=== PATIENT | female | born 1950 | race Caucasian/White ===

== ENCOUNTER 2024-08-09 22:56 | Inpatient (IN) | payer MEDICARE, SELFPAY ==
--- NOTE | ~2024-08-09 | MR_ITS ---
EXAMINATION: MR BRAIN WITHOUT CONTRAST CLINICAL INFORMATION: Cognitive impairment. COMPARISON: None. TECHNIQUE: Multiplanar, multisequence MR imaging was performed through the brain without the use of intravenous gadolinium. Additional high-resolution anatomic imaging was performed through the brain and images were submitted for post processing including auto-segmentation and volumetric analysis. FINDINGS: No diffusion abnormalities are identified to suggest an acute infarct. No mass effect or midline shift is seen. Mild chronic small vessel ischemic changes present in the cerebral white matter. Moderate chronic ischemic microangiopathy evident within the sarah. Generalized brain parenchymal volume loss evident with commensurate ex vacuo dilatation of the ventricles. Degree of volume loss in the mesial temporal lobes is more significant. No evidence of hydrocephalus. No extra-axial fluid collections are seen. The cerebellum is normal. The heme sensitive acquisition is normal. The craniovertebral junction and marrow signal are normal. The major intracranial flow voids at the level of the iliamna of Ruff are preserved. The dural venous sinus flow voids are maintained. The mastoid air cells are well aerated. Very mild mucosal thickening in the paranasal sinuses. Very small proteinaceous Tornwaldt cyst in the midline nasopharyngeal roof. Baseline NeuroQuant volumetric assessment of the hippocampi was subsequently performed. Quantitative hippocampal volumes are estimated at an age-adjusted normative percentile of 1 %. Lateral ventricular size is estimated at a normative percentile rank of 96 %, and the inferior lateral ventricles are estimated at 99 %. Hippocampal occupancy score is 1%. MR/MR brain wo con w neuroquant IMPRESSION: Mild to moderate chronic white matter microangiopathy, more so in the sarah. Generalized brain parenchymal volume loss which is more significant in the mesial temporal lobes. No acute process. Baseline volumetric measurements support a diagnosis of primary Alzheimer's dementia. Electronically signed by: Yohannes Jean-Baptiste MD 08/12/2024 09:07 AM EDT
[2024-08-10] MEDS: hydrOXYzine HCL 25 MG TABLET PO (01:53)
[2024-08-10] MEDS: traZODone HCL 50 MG TABLET PO ×2 (01:53→20:01)
[2024-08-10 02:35] VITALS: BP 169/71; PULSE 82; RESP 18; TEMP 36.2; O2SAT 97
[2024-08-10 02:36] VITALS: BMI 21.5
--- NOTE | 2024-08-10 02:37 | PC.ADMIT ---
Admitted these 73 years old female per stretcher accompanied by the ambulance staff. Pt was admitted to [facility] FROM 07/31 TO 08/09/24 She has a PMHx of hypothyroidism,cirrhosis and alcohol abuse presents on sec. 12-B after police were called for pt. shouting in the streets and exhibiting unsafe and manic behavior. Pt. arrived in the unit at 23:55h. Upon arrival to the unit pt. is oriented to staff, room mate, unit and room. Pt is alert and oriented to person, place and time and forgets the date. Pt is sometimes confused and forgetful and lacks insight into situation. Skin assessment done w/ multiple scattered old bruises on bilateral upper extremities. She has an old scar area on the mid abdomen. All visible skin are intact, no open areas. Pt wears eyeglasses for reading, has her own teeth, no dentures, abdomen soft, non tender w/ positive bowel sounds in 4 quadrants and no edema noted. Pt. is independent in ADL'S , Ambulation and continent of B&B. Pt. denies SI/HI/depression/anxiety/pain and feels safe in the unit. Pt also denies alcohol and drug abuse and tobacco use, said she stopped long time ago about 15 years. Sia Briggs notified of admission and put the admission orders.Pt. also has HTN, Hypokalemia and Altered Mental Status. During admission process pt signed all the legal papers, pleasant but hyper verbal and very impatient. Pt complained that she is hungry and given 1 chicken sandwich and 1 cup of apple juice. Pt given Atarax 25 mg for anxiety and Trazodone foe sleep w/ good effect. We'll continue to monitor patient.
[2024-08-10] MEDS: Levothyroxine Sodium 25 MCG TABLET PO (05:46)
[2024-08-10 08:00] VITALS: BP 157/74; PULSE 91; RESP 18; TEMP 36.8; O2SAT 99
[2024-08-10] MEDS: Multivitamin TABLET 1 TAB PO (09:41)
[2024-08-10] MEDS: QUEtiapine Fumarate 25 MG TABLET PO (09:41)
[2024-08-10] MEDS: Potassium Chloride ER 20 MEQ TAB.ER.PRT PO (09:41)
[2024-08-10] MEDS: Losartan Potassium 25 MG TABLET PO ×2 (09:41→20:01)
[2024-08-10] MEDS: Thiamine HCL 100 MG TABLET PO (09:41)
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
[2024-08-10] MEDS: dilTIAZem HCL CD 180 MG CAP.ER.24H PO (10:27)
--- NOTE | 2024-08-10 15:39 | P.CONHOSP_ITS ---
History of Present Illness Data of Consult Service Date: 08/10/24 Primary Care Provider: Unknown Physician HPI Reason for consult: Admission H&P Pt is a 73-year-old female with a PMH significant for?HTN, hypothyroidism, alcohol use disorder, alcohol cirrhosis, and mood disorder who [facility] acute sissy and dysregulated behavior. Pt was apparently found by police shouting in the streets and exhibiting unsafe and manic behavior. Was brought in on a section 12. Medical consult for admission H&P. Pt continues to exhibit acute sissy at time of interview and exam. Pt reports feels great with no acute medical complaints, though she repeatedly asks for her phone and card containing all her medications, neither of which she can currently find. Denies SOB or difficulty breathing. No chest pain or pressure. Denies fever, chills, N/V/D, or abdominal pain. Review of records indicate initially presented to ED with hypokalemia. Current CMP largely unremarkable with potassium WNL. Review of Systems 2 Review of Systems: Pt denies any acute medical complaints [facility] Medical History (Updated 08/11/24 @ 03:00 by DOMINIQUE Denney) Alcoholic cirrhosis Alcohol use disorder Hypothyroidism HTN (hypertension) Social History Household Members: None Housing: Condominium Do you presently have visiting nurse or other home services: No Patient Tobacco Use Status: Former Tobacco user Tobacco use type: Cigarette Cigarettes Per Day: 3 Smoked in Last 30 Days: No e-Cigarette/Vaping Use: Never Used Patient Interested in Nicotine Replacement: No Patient Given Instructions on How to Stop Smoking: No Use of substances other than those prescribed or required for medical reasons: No Currently Displaying Signs/Symptoms of Drug Intoxication Withdrawal: No Any prior treatment program specific to substance use: No Have you been hit, kicked, punched, or otherwise hurt by someone within the past year? If so, by whom?: No Do you feel safe in your current relationship?: No Current Relationship Is there a partner from a previous relationship who is making you feel unsafe now?: No Are you made to feel afraid or neglected: No Denominational Healthcare Practices: I am a rastafarian . Advance Directives: No Advance Directives Information Provided: No Do you have thoughts of harming others: None Do you have a plan to hurt others: No Plan Recently lost weight without trying: No How much weight loss: Not applicable Eating poorly because of decreased appetite: No Nutrition screen score: 0 Nutrition Risks: No Nutritional Risk Patient : No : No Poor oral hygiene: No service: No Sexual orientation: Straight/Heterosexual Meds Allergies Allergy/AdvReac Type Severity Reaction Status Date / Time No Known Allergies Allergy Verified 08/09/24 23:21 Active Medications: Current Medications Acetaminophen (Acetaminophen 325 Mg Tablet) 650 mg PO Q6H PRN PRN Reason: Headache/Pain Mild Scale (1-3) Al Hydroxide/Mg Hydroxide (Magnesium Hydrox/Alum Hydrox 30 Ml Oral.Susp) 30 ml PO Q6H PRN PRN Reason: Heartburn/Nausea Diltiazem HCl (Diltiazem Hcl Cd 180 Mg Cap.Er.24h) 180 mg PO DAILY [facility]; Protocol Last Admin: 08/10/24 10:27 Dose: 180 mg Donepezil HCl (Donepezil Hcl 5 Mg Tablet) 5 mg PO BEDTIME [facility] Hydroxyzine HCl (Hydroxyzine Hcl 25 Mg Tablet) 25 mg PO Q6H PRN PRN Reason: Anxiety Last Admin: 08/10/24 01:53 Dose: 25 mg Levothyroxine Sodium (Levothyroxine Sodium 25 Mcg Tablet) 25 mcg PO DAILY@0630 [facility] Last Admin: 08/10/24 05:46 Dose: 25 mcg Losartan Potassium (Losartan Potassium 25 Mg Tablet) 25 mg PO BID [facility]; Protocol Last Admin: 08/10/24 09:41 Dose: 25 mg Magnesium Hydroxide (Milk Of Magnesia 30 Ml Oral.Susp) 30 ml PO DAILY PRN PRN Reason: Constipation Multivitamins/Vitamin C (Multivitamin Tablet) 1 tab PO DAILY [facility] Last Admin: 08/10/24 09:41 Dose: 1 tab Nicotine Polacrilex (Nicotine Polacrilex 2 Mg Gum) 4 mg BUCCAL Q2H PRN PRN Reason: Nicotine Cravings Potassium Chloride (Potassium Chloride Er 20 Meq Tab.Er.Prt) 20 meq PO DAILY [facility] Last Admin: 08/10/24 09:41 Dose: 20 meq Quetiapine Fumarate (Quetiapine Fumarate 25 Mg Tablet) 25 mg PO DAILY [facility] Last Admin: 08/10/24 09:41 Dose: 25 mg Quetiapine Fumarate (Quetiapine Fumarate 100 Mg Tablet) 100 mg PO BEDTIME [facility] Risperidone (Risperidone 0.5 Mg Tablet) 0.5 mg PO BID [facility] Thiamine HCl (Thiamine Hcl 100 Mg Tablet) 100 mg PO DAILY [facility] Last Admin: 08/10/24 09:41 Dose: 100 mg Trazodone HCl (Trazodone Hcl 50 Mg Tablet) 50 mg PO BEDTIME MRX1 PRN PRN Reason: Insomnia Last Admin: 08/10/24 01:53 Dose: 50 mg Home Medications ?Medication ?Instructions ?Recorded ?Confirmed ?Last Taken ?Type levothyroxine 25 mcg tablet 25 mcg PO DAILY 08/09/24 08/09/24 Unknown History diltiazem HCl 180 mg 180 mg PO DAILY 08/10/24 08/10/24 Unknown History capsule,extended release 24 hr losartan 25 mg tablet (Cozaar) 25 mg PO BID 08/10/24 08/10/24 Unknown History multivitamin 1 tab PO DAILY 08/10/24 08/10/24 Unknown History potassium chloride 20 mEq 20 meq PO DAILY 08/10/24 08/10/24 Unknown History tablet,extended release(part/cryst) quetiapine 100 mg tablet 100 mg PO BEDTIME 08/10/24 08/10/24 Unknown History quetiapine 25 mg tablet 25 mg PO DAILY 08/10/24 08/10/24 Unknown History thiamine HCl (vitamin B1) 100 mg 100 mg PO DAILY 08/10/24 08/10/24 Unknown History tablet Physical Exam 2 Vital Signs and Narrative: Vital Signs: Last Vital Signs Temp 98.3 F 08/10/24 08:00 Pulse 91 08/10/24 08:00 Resp 18 08/10/24 08:00 BP 157/74 H 08/10/24 08:00 Pulse Ox 99 08/10/24 08:00 O2 Del Method Room Air 08/10/24 08:00 BMI result Body Mass Index 21.5 General: AOx2, no acute distress Resp: CTA bilaterally CVS: S1, S2, RRR GI: +BS, NT, no distention Skin: Warm, dry Neuro: Cranial nerves II-XII grossly intact bilaterally. Motor grossly intact bilaterally Extremities: No edema Psych: Appear actively manic, with pressured speech Results Labs 08/10/24 16:23 Assessment and Plan (1) Medical clearance for psychiatric admission: Status: Acute Plan Pt is a 73-year-old female with a PMH significant for?HTN, hypothyroidism, alcohol use disorder, alcohol cirrhosis, and mood disorder who is admitted [facility] unit for acute sissy and dysregulated behavior. Pt was apparently found by police shouting in the streets and exhibiting unsafe and manic behavior. Was brought in on a section 12. Medical consult for admission H&P. Mood disorder Plan as per psychiatry HTN BP slighty elevated Continue diltiazem, losartan Monitor BP Hypothyroidism Continue levothyroxine Alcohol use disorder Continue multivitamin, thaimine Thank you for allowing us to participate in the care of this patient. Signing off at this time. Please re-consult if any acute complaints or issues arise.
[2024-08-10 16:49] LABS: Alanine Aminotransferase 20 U/L (0-31); Albumin Level 4.3 g/dL (3.5-5.0); Alkaline Phosphatase 114 U/L (39-117); Anion Gap 11 (12-20); Aspartate Amino Transferase 29 U/L (5-31); Bilirubin Total 0.6 mg/dL (0.0-1.0); Blood Urea Nitrogen 9 mg/dL (9-16); Calcium 9.8 mg/dL (8.4-10.2); Carbon Dioxide 31 mmol/L (22-29); Chloride 103 mmol/L (96-108); Creatinine Clr Calc Pharmacy 47.4; Estimated Glomerular Filt Rate > 60; Glucose Random 183 mg/dL (60-115); Potassium 4.6 mmol/L (3.3-5.1); Sodium 140 mmol/L (135-145); Total Protein 7.8 g/dL (6.5-8.0)
[2024-08-10] MEDS: risperiDONE 0.5 MG TABLET PO ×2 (17:29→20:01)
[2024-08-10 20:00] VITALS: BP 155/70; PULSE 87; RESP 18; TEMP 36.6; O2SAT 99
[2024-08-10] MEDS: Donepezil HCl 5 MG TABLET PO (20:01)
[2024-08-10] MEDS: QUEtiapine Fumarate 100 MG TABLET PO (20:01)
[2024-08-11] MEDS: Levothyroxine Sodium 25 MCG TABLET PO (06:05)
[2024-08-11 08:00] VITALS: BP 145/69; PULSE 91; RESP 18; TEMP 36.4; O2SAT 100
[2024-08-11 08:11] LABS: Estimated Average Glucose 146 mg/dL; Hemoglobin A1C 169.2686 umol/L; Hemoglobin A1c % 6.7 % (<6.0); Total Hemoglobin (HGBA1C) 3407.4814 umol/L
[2024-08-11 08:26] LABS: Cholesterol 206 mg/dL (<200); HDL Cholesterol 77 mg/dL (>40); LDL Cholesterol Calculated 111 mg/dL (<100); Magnesium 2.2 mg/dL (1.6-2.6); Triglycerides 94 mg/dL (<150)
[2024-08-11 08:40] LABS: Free T4 (Free Thyroxine) 1.07 ng/dL (0.71-1.85); Thyroid Stimulating Hormone 1.99 uIU/mL (0.32-4.0)
[2024-08-11 08:53] VITALS: BMI 22.0
[2024-08-11 08:55] LABS: Folate 11.8 ng/mL (> or = 4.0); Vitamin B12 426 pg/mL (200-900)
[2024-08-11] MEDS: dilTIAZem HCL CD 180 MG CAP.ER.24H PO (09:45)
[2024-08-11] MEDS: Multivitamin TABLET 1 TAB PO (09:46)
[2024-08-11] MEDS: Thiamine HCL 100 MG TABLET PO (09:46)
[2024-08-11] MEDS: Potassium Chloride ER 20 MEQ TAB.ER.PRT PO (09:46)
[2024-08-11] MEDS: Losartan Potassium 25 MG TABLET PO ×2 (09:46→20:20)
[2024-08-11] MEDS: risperiDONE 0.5 MG TABLET PO ×2 (09:46→20:20)
--- NOTE | 2024-08-11 12:25 | HO.PSYCHPN ---
Subjective Subjective Date of Service: 08/11/24 Reason For Visit: Depression, unspecified Subjective Notes: Conditional Voluntary Interim History: Pt slept most of the night. She continues to present with confusion as to where she is. She reports I like it here, so much better with less medications does have some idea it may be the hospital but other thinks she came for physical exam. She denies SI/HI. She can be intrusive with peers. no behavioral concerns. Review of Systems Review of Systems Pt denies any acute medical complaints Mental Status Exam Mental Status Exam Narrative: Appearance: wearing casual clothing, good hygiene, in NAD Behavior: cooperative Psychomotor: no agitation or retardation noted Speech: clear, hyperverbal at times, not pressured, spontaneous TP: tangential, at times derailed. confabulation TC: liking it here, very relaxing Mood: good Affect: congruent, smiling SI: denies HI: denies VH/AH: none Delusions: there is some paranoid ideas Insight/judgment: impaired x 2. Memory/cog: alert,not oriented to place, month, day, date, severe anterograde amnesia. No signsnificant language impairment noted but pending more formal assessment. Diagnostics Vital Signs (24Hr): Vital Signs - 24 hr 08/10/24 20:00 08/11/24 08:00 Temperature 97.8 F 97.5 F Pulse Rate 87 91 Respiratory Rate 18 18 Blood Pressure 155/70 H 145/69 H Pulse Oximetry 99 100 Oxygen Delivery Method Room Air Room Air BMI result Body Mass Index 22.0 Labs 08/10/24 16:23 Labs: Laboratory Results - last 48 hr 08/10/24 08/11/24 16:23 07:56 Sodium 140 Potassium 4.6 Chloride 103 Carbon Dioxide 31 H Anion Gap 11 L BUN 9 Creatinine 0.86 Estim Creat Clear Calc 47.4 Estimated GFR > 60 Random Glucose 183 H Estimat Average Glucose 146 Hemoglobin A1c % 6.7 H Calcium 9.8 Magnesium 2.2 Total Bilirubin 0.6 AST 29 ALT 20 Alkaline Phosphatase 114 Total Protein 7.8 Albumin 4.3 Triglycerides 94 Cholesterol 206 H LDL Cholesterol, Calc 111 H HDL Cholesterol 77 Vitamin B12 426 Folate 11.8 TSH 1.99 Free T4 1.07 Medications Medications Current Medications Acetaminophen (Acetaminophen 325 Mg Tablet) 650 mg PO Q6H PRN PRN Reason: Headache/Pain Mild Scale (1-3) Al Hydroxide/Mg Hydroxide (Magnesium Hydrox/Alum Hydrox 30 Ml Oral.Susp) 30 ml PO Q6H PRN PRN Reason: Heartburn/Nausea Diltiazem HCl (Diltiazem Hcl Cd 180 Mg Cap.Er.24h) 180 mg PO DAILY [facility]; Protocol Last Admin: 08/11/24 09:45 Dose: 180 mg Donepezil HCl (Donepezil Hcl 5 Mg Tablet) 5 mg PO BEDTIME [facility] Last Admin: 08/10/24 20:01 Dose: 5 mg Hydroxyzine HCl (Hydroxyzine Hcl 25 Mg Tablet) 25 mg PO Q6H PRN PRN Reason: Anxiety Last Admin: 08/10/24 01:53 Dose: 25 mg Levothyroxine Sodium (Levothyroxine Sodium 25 Mcg Tablet) 25 mcg PO DAILY@0630 [facility] Last Admin: 08/11/24 06:05 Dose: 25 mcg Losartan Potassium (Losartan Potassium 25 Mg Tablet) 25 mg PO BID [facility]; Protocol Last Admin: 08/11/24 09:46 Dose: 25 mg Magnesium Hydroxide (Milk Of Magnesia 30 Ml Oral.Susp) 30 ml PO DAILY PRN PRN Reason: Constipation Multivitamins/Vitamin C (Multivitamin Tablet) 1 tab PO DAILY [facility] Last Admin: 08/11/24 09:46 Dose: 1 tab Nicotine Polacrilex (Nicotine Polacrilex 2 Mg Gum) 4 mg BUCCAL Q2H PRN PRN Reason: Nicotine Cravings Potassium Chloride (Potassium Chloride Er 20 Meq Tab.Er.Prt) 20 meq PO DAILY [facility] Last Admin: 08/11/24 09:46 Dose: 20 meq Quetiapine Fumarate (Quetiapine Fumarate 100 Mg Tablet) 100 mg PO BEDTIME [facility] Last Admin: 08/10/24 20:01 Dose: 100 mg Risperidone (Risperidone 0.5 Mg Tablet) 0.5 mg PO BID [facility] Last Admin: 08/11/24 09:46 Dose: 0.5 mg Thiamine HCl (Thiamine Hcl 100 Mg Tablet) 100 mg PO DAILY [facility] Last Admin: 08/11/24 09:46 Dose: 100 mg Trazodone HCl (Trazodone Hcl 50 Mg Tablet) 50 mg PO BEDTIME MRX1 PRN PRN Reason: Insomnia Last Admin: 08/10/24 20:01 Dose: 50 mg Allergies Allergies Allergy/AdvReac Type Severity Reaction Status Date / Time No Known Allergies Allergy Verified 08/09/24 23:21 Assessment & Plan Assessment & Plan (1) Dementia associated with alcoholism with behavioral disturbance: Status: Acute Code(s): F10.27 - Alcohol dependence with alcohol-induced persisting dementia Plan Mrs. Walsh is a 73 year-old woman who was brought on a sect 12a to [facility] due to pt shouting on the streets and unsafe behaviors (no description of these behaviors). Pt was medically admitted for HTN and hypokalemia. She has been noted not to be oriented to situation, place thinking she was in he hospital for physical exam. She does have some degree of paranoid ideas. She also noted to have severe anterograde amnesia with other cognitive functions like language more intact which most related pattern to alcohol related dementia, although mixed etiology can't be ruled out. PLAN 1. admit to S1, sect 12b, 5 minutes checks 2. invoked HCP- pt does not have capacity to make medical decisions 3. start risperidone for paranoia s/s to dementia, will start aricept as well. 4. order MRI 5. aftercare planning. Reason for continued inpatient stay Substantial Risk for: inability to function Time Spent With Patient Time: Total time managing care of this patient today ____ minutes.
[2024-08-11 19:59] VITALS: BP 133/70; PULSE 81; RESP 18; TEMP 36.6; O2SAT 99
[2024-08-11] MEDS: traZODone HCL 50 MG TABLET PO (20:20)
[2024-08-11] MEDS: QUEtiapine Fumarate 100 MG TABLET PO (20:20)
[2024-08-11] MEDS: Donepezil HCl 5 MG TABLET PO (20:20)
[2024-08-11] MEDS: hydrOXYzine HCL 25 MG TABLET PO (20:20)
[2024-08-12] MEDS: Levothyroxine Sodium 25 MCG TABLET PO (05:56)
[2024-08-12 08:41] VITALS: BP 125/60; PULSE 76; RESP 18; TEMP 36.1; O2SAT 100
[2024-08-12] MEDS: dilTIAZem HCL CD 180 MG CAP.ER.24H PO (08:41)
[2024-08-12] MEDS: risperiDONE 0.5 MG TABLET PO ×2 (08:41→20:16)
[2024-08-12] MEDS: Losartan Potassium 25 MG TABLET PO ×2 (08:41→20:16)
[2024-08-12] MEDS: Multivitamin TABLET 1 TAB PO (08:41)
[2024-08-12] MEDS: Potassium Chloride ER 20 MEQ TAB.ER.PRT PO (08:41)
[2024-08-12] MEDS: Thiamine HCL 100 MG TABLET PO (08:42)
--- NOTE | 2024-08-12 11:37 | P.PNPSI_ITS ---
Subjective Subjective Date of Service: 08/12/24 Reason For Visit: Depression, unspecified Interim History: Pt visable and engaged in milieu, having lunch with peers. Alert, attentive to environment and responsive with confusion. Medication Compliance: Yes Side effects from medications: No Attending Groups: Yes Review of Systems Acute medical concerns: No Medical Review of Systems: unchanged Review of Systems Review of Systems Yes all other systems are reviewed and are negative Mental Status Exam Mental Status Exam Patient Appearance: Appropriate Level of Consciousness: Alert Patient Behavior: Talkative and Good Eye Contact Mood Description: Flat Affect Description: Flat Patient Cognition Impaired: Yes Ability to Follow Directions: Fair Speech Pattern: Spontaneous Speech Memory Description: Remote Impaired Thought Content: positive for Circumstantial Judgement: Poor Diagnostics Vital Signs (24Hr): Vital Signs - 24 hr 08/11/24 19:59 08/12/24 08:41 08/12/24 08:41 Temperature 97.8 F Pulse Rate 81 76 Respiratory Rate 18 Blood Pressure 133/70 125/60 125/60 Pulse Oximetry 99 Oxygen Delivery Method Room Air 08/12/24 08:41 Temperature 96.9 F Pulse Rate 76 Respiratory Rate 18 Blood Pressure 125/60 Pulse Oximetry 100 Oxygen Delivery Method Room Air BMI result Body Mass Index 22.0 Labs 08/10/24 16:23 Labs: Laboratory Results - last 48 hr 08/10/24 08/11/24 16:23 07:56 Sodium 140 Potassium 4.6 Chloride 103 Carbon Dioxide 31 H Anion Gap 11 L BUN 9 Creatinine 0.86 Estim Creat Clear Calc 47.4 Estimated GFR > 60 Random Glucose 183 H Estimat Average Glucose 146 Hemoglobin A1c % 6.7 H Calcium 9.8 Magnesium 2.2 Total Bilirubin 0.6 AST 29 ALT 20 Alkaline Phosphatase 114 Total Protein 7.8 Albumin 4.3 Triglycerides 94 Cholesterol 206 H LDL Cholesterol, Calc 111 H HDL Cholesterol 77 Vitamin B12 426 Folate 11.8 TSH 1.99 Free T4 1.07 Imaging Radiology Impressions: ITS Impressions Brain MRI 08/10/24 18:37 IMPRESSION: Mild to moderate chronic white matter microangiopathy, more so in the sarah. Generalized brain parenchymal volume loss which is more significant in the mesial temporal lobes. No acute process. Baseline volumetric measurements support a diagnosis of primary Alzheimer's dementia. Electronically signed by: Yohannes Jean-Baptiste MD 08/12/2024 09:07 AM EDT RP Medications Medications Current Medications Acetaminophen (Acetaminophen 325 Mg Tablet) 650 mg PO Q6H PRN PRN Reason: Headache/Pain Mild Scale (1-3) Al Hydroxide/Mg Hydroxide (Magnesium Hydrox/Alum Hydrox 30 Ml Oral.Susp) 30 ml PO Q6H PRN PRN Reason: Heartburn/Nausea Diltiazem HCl (Diltiazem Hcl Cd 180 Mg Cap.Er.24h) 180 mg PO DAILY [facility]; Protocol Last Admin: 08/12/24 08:41 Dose: 180 mg Donepezil HCl (Donepezil Hcl 5 Mg Tablet) 5 mg PO BEDTIME [facility] Last Admin: 08/11/24 20:20 Dose: 5 mg Hydroxyzine HCl (Hydroxyzine Hcl 25 Mg Tablet) 25 mg PO Q6H PRN PRN Reason: Anxiety Last Admin: 08/11/24 20:20 Dose: 25 mg Levothyroxine Sodium (Levothyroxine Sodium 25 Mcg Tablet) 25 mcg PO DAILY@0630 [facility] Last Admin: 08/12/24 05:56 Dose: 25 mcg Losartan Potassium (Losartan Potassium 25 Mg Tablet) 25 mg PO BID [facility]; Protocol Last Admin: 08/12/24 08:41 Dose: 25 mg Magnesium Hydroxide (Milk Of Magnesia 30 Ml Oral.Susp) 30 ml PO DAILY PRN PRN Reason: Constipation Multivitamins/Vitamin C (Multivitamin Tablet) 1 tab PO DAILY [facility] Last Admin: 08/12/24 08:41 Dose: 1 tab Nicotine Polacrilex (Nicotine Polacrilex 2 Mg Gum) 4 mg BUCCAL Q2H PRN PRN Reason: Nicotine Cravings Potassium Chloride (Potassium Chloride Er 20 Meq Tab.Er.Prt) 20 meq PO DAILY [facility] Last Admin: 08/12/24 08:41 Dose: 20 meq Quetiapine Fumarate (Quetiapine Fumarate 100 Mg Tablet) 100 mg PO BEDTIME [facility] Last Admin: 08/11/24 20:20 Dose: 100 mg Risperidone (Risperidone 0.5 Mg Tablet) 0.5 mg PO BID [facility] Last Admin: 08/12/24 08:41 Dose: 0.5 mg Thiamine HCl (Thiamine Hcl 100 Mg Tablet) 100 mg PO DAILY [facility] Last Admin: 08/12/24 08:42 Dose: 100 mg Trazodone HCl (Trazodone Hcl 50 Mg Tablet) 50 mg PO BEDTIME MRX1 PRN PRN Reason: Insomnia Last Admin: 08/11/24 20:20 Dose: 50 mg Allergies Allergies Allergy/AdvReac Type Severity Reaction Status Date / Time No Known Allergies Allergy Verified 08/09/24 23:21 Assessment & Plan Assessment & Plan (1) Dementia associated with alcoholism with behavioral disturbance: Status: Acute Code(s): F10.27 - Alcohol dependence with alcohol-induced persisting dementia Plan Mrs. Walsh is a 73 year-old woman who was brought on a sect 12a to [facility] due to pt shouting on the streets and unsafe behaviors (no description of these behaviors). Pt was medically admitted for HTN and hypokalemia. She has been noted not to be oriented to situation, place thinking she was in he hospital for physical exam. She does have some degree of paranoid ideas. She also noted to have severe anterograde amnesia with other cognitive functions like language more intact which most related pattern to alcohol related dementia, although mixed etiology can't be ruled out. PLAN 1. admit to S1, sect 12b, 5 minutes checks 2. invoked HCP- pt does not have capacity to make medical decisions 3. start risperidone for paranoia s/s to dementia, will start aricept as well. 4. order MRI 5. aftercare planning. 08/12- Continue plan of care. Reason for continued inpatient stay Substantial Risk for: med/psych decompensation Time Spent With Patient Time: Total time managing care of this patient today ____ minutes.
[2024-08-12 20:00] VITALS: BP 125/62; PULSE 75; RESP 18; TEMP 36.4; O2SAT 96
[2024-08-12] MEDS: Donepezil HCl 5 MG TABLET PO (20:16)
[2024-08-12] MEDS: hydrOXYzine HCL 25 MG TABLET PO (20:16)
[2024-08-12] MEDS: traZODone HCL 50 MG TABLET PO (20:16)
[2024-08-12] MEDS: QUEtiapine Fumarate 100 MG TABLET PO (20:16)
[2024-08-13] MEDS: Levothyroxine Sodium 25 MCG TABLET PO (05:42)
[2024-08-13 08:34] VITALS: BP 169/78; PULSE 85; RESP 18; TEMP 36.8; O2SAT 99
[2024-08-13] MEDS: Multivitamin TABLET 1 TAB PO (08:35)
[2024-08-13] MEDS: Potassium Chloride ER 20 MEQ TAB.ER.PRT PO (08:36)
[2024-08-13] MEDS: Losartan Potassium 25 MG TABLET PO ×2 (08:36→20:30)
[2024-08-13] MEDS: risperiDONE 0.5 MG TABLET PO ×2 (08:36→20:30)
[2024-08-13] MEDS: dilTIAZem HCL CD 180 MG CAP.ER.24H PO (08:36)
[2024-08-13] MEDS: Thiamine HCL 100 MG TABLET PO (08:37)
--- NOTE | 2024-08-13 11:09 | P.PNPSI_ITS ---
Subjective Subjective Date of Service: 08/13/24 Reason For Visit: Depression, unspecified Subjective Notes: Conditional Voluntary Interim History: Patient was seen and discussed in rounds today. Records and plans were reviewed. She has been doing okay on the unit. Some intrusive behaviors. Continues to be confused. Eating and sleeping adequately. No changes were made today Review of Systems Review of Systems Yes all other systems are reviewed and are negative Mental Status Exam Mental Status Exam Patient Appearance: Appropriate Level of Consciousness: Alert Patient Behavior: Talkative and Good Eye Contact Mood Description: Flat Affect Description: Flat Patient Cognition Impaired: Yes Ability to Follow Directions: Fair Speech Pattern: Spontaneous Speech Memory Description: Remote Impaired Thought Content: positive for Circumstantial Judgement: Poor Diagnostics Vital Signs (24Hr): Vital Signs - 24 hr 08/12/24 20:00 08/13/24 08:34 Temperature 97.6 F 98.2 F Pulse Rate 75 85 Respiratory Rate 18 18 Blood Pressure 125/62 169/78 H Pulse Oximetry 96 99 Oxygen Delivery Method Room Air Room Air BMI result Body Mass Index 22.0 Labs 08/10/24 16:23 Imaging Radiology Impressions: ITS Impressions Brain MRI 08/10/24 18:37 IMPRESSION: Mild to moderate chronic white matter microangiopathy, more so in the sarah. Generalized brain parenchymal volume loss which is more significant in the mesial temporal lobes. No acute process. Baseline volumetric measurements support a diagnosis of primary Alzheimer's dementia. Electronically signed by: Yohannes Jean-Baptiste MD 08/12/2024 09:07 AM EDT RP Medications Medications Current Medications Acetaminophen (Acetaminophen 325 Mg Tablet) 650 mg PO Q6H PRN PRN Reason: Headache/Pain Mild Scale (1-3) Al Hydroxide/Mg Hydroxide (Magnesium Hydrox/Alum Hydrox 30 Ml Oral.Susp) 30 ml PO Q6H PRN PRN Reason: Heartburn/Nausea Diltiazem HCl (Diltiazem Hcl Cd 180 Mg Cap.Er.24h) 180 mg PO DAILY [facility]; Protocol Last Admin: 08/13/24 08:36 Dose: 180 mg Donepezil HCl (Donepezil Hcl 5 Mg Tablet) 5 mg PO BEDTIME [facility] Last Admin: 08/12/24 20:16 Dose: 5 mg Hydroxyzine HCl (Hydroxyzine Hcl 25 Mg Tablet) 25 mg PO Q6H PRN PRN Reason: Anxiety Last Admin: 08/12/24 20:16 Dose: 25 mg Levothyroxine Sodium (Levothyroxine Sodium 25 Mcg Tablet) 25 mcg PO DAILY@0630 [facility] Last Admin: 08/13/24 05:42 Dose: 25 mcg Losartan Potassium (Losartan Potassium 25 Mg Tablet) 25 mg PO BID [facility]; Protocol Last Admin: 08/13/24 08:36 Dose: 25 mg Magnesium Hydroxide (Milk Of Magnesia 30 Ml Oral.Susp) 30 ml PO DAILY PRN PRN Reason: Constipation Multivitamins/Vitamin C (Multivitamin Tablet) 1 tab PO DAILY [facility] Last Admin: 08/13/24 08:35 Dose: 1 tab Nicotine Polacrilex (Nicotine Polacrilex 2 Mg Gum) 4 mg BUCCAL Q2H PRN PRN Reason: Nicotine Cravings Potassium Chloride (Potassium Chloride Er 20 Meq Tab.Er.Prt) 20 meq PO DAILY [facility] Last Admin: 08/13/24 08:36 Dose: 20 meq Quetiapine Fumarate (Quetiapine Fumarate 100 Mg Tablet) 100 mg PO BEDTIME [facility] Last Admin: 08/12/24 20:16 Dose: 100 mg Risperidone (Risperidone 0.5 Mg Tablet) 0.5 mg PO BID [facility] Last Admin: 08/13/24 08:36 Dose: 0.5 mg Thiamine HCl (Thiamine Hcl 100 Mg Tablet) 100 mg PO DAILY [facility] Last Admin: 08/13/24 08:37 Dose: 100 mg Trazodone HCl (Trazodone Hcl 50 Mg Tablet) 50 mg PO BEDTIME MRX1 PRN PRN Reason: Insomnia Last Admin: 08/12/24 20:16 Dose: 50 mg Allergies Allergies Allergy/AdvReac Type Severity Reaction Status Date / Time No Known Allergies Allergy Verified 08/09/24 23:21 Assessment & Plan Assessment & Plan (1) Dementia associated with alcoholism with behavioral disturbance: Status: Acute Code(s): F10.27 - Alcohol dependence with alcohol-induced persisting dementia Plan Mrs. Walsh is a 73 year-old woman who was brought on a sect 12a to [facility] due to pt shouting on the streets and unsafe behaviors (no description of these behaviors). Pt was medically admitted for HTN and hypokalemia. She has been noted not to be oriented to situation, place thinking she was in he hospital for physical exam. She does have some degree of paranoid ideas. She also noted to have severe anterograde amnesia with other cognitive functions like language more intact which most related pattern to alcohol related dementia, although mixed etiology can't be ruled out. PLAN 1. admit to S1, sect 12b, 5 minutes checks 2. invoked HCP- pt does not have capacity to make medical decisions 3. start risperidone for paranoia s/s to dementia, will start aricept as well. 4. order MRI 5. aftercare planning. 08/12- Continue plan of care. 08/13: Continue current regimen and plans Reason for continued inpatient stay Substantial Risk for: inability to function and med/psych decompensation Time Spent With Patient Time: Total time managing care of this patient today ____ minutes.
[2024-08-13 20:00] VITALS: BP 135/69; PULSE 85; RESP 18; TEMP 36.4; O2SAT 97
[2024-08-13] MEDS: Donepezil HCl 5 MG TABLET PO (20:30)
[2024-08-13] MEDS: hydrOXYzine HCL 25 MG TABLET PO (20:30)
[2024-08-13] MEDS: QUEtiapine Fumarate 100 MG TABLET PO (20:30)
[2024-08-13] MEDS: traZODone HCL 50 MG TABLET PO (20:30)
[2024-08-14] MEDS: Levothyroxine Sodium 25 MCG TABLET PO (06:11)
[2024-08-14 07:43] VITALS: BP 152/77; PULSE 89; RESP 16; TEMP 36.1; O2SAT 99
--- NOTE | 2024-08-14 08:22 | HO.PSYCHPN ---
Subjective Subjective Date of Service: 08/14/24 Reason For Visit: Depression, unspecified Subjective Notes: Conditional Voluntary Interim History: Patient was seen and discussed in rounds today. Records and plans were reviewed. She stated that she is confused why she is on a psychiatric unit. She has been tearful, social. Mostly tangential. No behavioral issues some intrusive behaviors. Her observation is going to be changed from 5 minutes to 15 meds. Eating and sleeping well. No other changes were made today Review of Systems Review of Systems Yes all other systems are reviewed and are negative Mental Status Exam Mental Status Exam Patient Appearance: Appropriate Level of Consciousness: Alert Patient Behavior: Talkative and Good Eye Contact Mood Description: Flat Affect Description: Flat Patient Cognition Impaired: Yes Ability to Follow Directions: Fair Speech Pattern: Spontaneous Speech Memory Description: Remote Impaired Thought Content: positive for Circumstantial Judgement: Poor Diagnostics Vital Signs (24Hr): Vital Signs - 24 hr 08/13/24 08:34 08/13/24 20:00 08/14/24 07:43 Temperature 98.2 F 97.5 F 97.0 F Pulse Rate 85 85 89 Respiratory Rate 18 18 16 Blood Pressure 169/78 H 135/69 152/77 H Pulse Oximetry 99 97 99 Oxygen Delivery Method Room Air Room Air Room Air BMI result Body Mass Index 22.0 Labs 08/10/24 16:23 Imaging Radiology Impressions: ITS Impressions Brain MRI 08/10/24 18:37 IMPRESSION: Mild to moderate chronic white matter microangiopathy, more so in the sarah. Generalized brain parenchymal volume loss which is more significant in the mesial temporal lobes. No acute process. Baseline volumetric measurements support a diagnosis of primary Alzheimer's dementia. Electronically signed by: Yohannes Jean-Baptiste MD 08/12/2024 09:07 AM EDT RP Medications Medications Current Medications Acetaminophen (Acetaminophen 325 Mg Tablet) 650 mg PO Q6H PRN PRN Reason: Headache/Pain Mild Scale (1-3) Al Hydroxide/Mg Hydroxide (Magnesium Hydrox/Alum Hydrox 30 Ml Oral.Susp) 30 ml PO Q6H PRN PRN Reason: Heartburn/Nausea Diltiazem HCl (Diltiazem Hcl Cd 180 Mg Cap.Er.24h) 180 mg PO DAILY [facility]; Protocol Last Admin: 08/13/24 08:36 Dose: 180 mg Donepezil HCl (Donepezil Hcl 5 Mg Tablet) 5 mg PO BEDTIME [facility] Last Admin: 08/13/24 20:30 Dose: 5 mg Hydroxyzine HCl (Hydroxyzine Hcl 25 Mg Tablet) 25 mg PO Q6H PRN PRN Reason: Anxiety Last Admin: 08/13/24 20:30 Dose: 25 mg Levothyroxine Sodium (Levothyroxine Sodium 25 Mcg Tablet) 25 mcg PO DAILY@0630 [facility] Last Admin: 08/14/24 06:11 Dose: 25 mcg Losartan Potassium (Losartan Potassium 25 Mg Tablet) 25 mg PO BID [facility]; Protocol Last Admin: 08/13/24 20:30 Dose: 25 mg Magnesium Hydroxide (Milk Of Magnesia 30 Ml Oral.Susp) 30 ml PO DAILY PRN PRN Reason: Constipation Multivitamins/Vitamin C (Multivitamin Tablet) 1 tab PO DAILY [facility] Last Admin: 08/13/24 08:35 Dose: 1 tab Nicotine Polacrilex (Nicotine Polacrilex 2 Mg Gum) 4 mg BUCCAL Q2H PRN PRN Reason: Nicotine Cravings Potassium Chloride (Potassium Chloride Er 20 Meq Tab.Er.Prt) 20 meq PO DAILY [facility] Last Admin: 08/13/24 08:36 Dose: 20 meq Quetiapine Fumarate (Quetiapine Fumarate 100 Mg Tablet) 100 mg PO BEDTIME [facility] Last Admin: 08/13/24 20:30 Dose: 100 mg Risperidone (Risperidone 0.5 Mg Tablet) 0.5 mg PO BID [facility] Last Admin: 08/13/24 20:30 Dose: 0.5 mg Thiamine HCl (Thiamine Hcl 100 Mg Tablet) 100 mg PO DAILY [facility] Last Admin: 08/13/24 08:37 Dose: 100 mg Trazodone HCl (Trazodone Hcl 50 Mg Tablet) 50 mg PO BEDTIME MRX1 PRN PRN Reason: Insomnia Last Admin: 08/13/24 20:30 Dose: 50 mg Allergies Allergies Allergy/AdvReac Type Severity Reaction Status Date / Time No Known Allergies Allergy Verified 08/09/24 23:21 Assessment & Plan Assessment & Plan (1) Dementia associated with alcoholism with behavioral disturbance: Status: Acute Code(s): F10.27 - Alcohol dependence with alcohol-induced persisting dementia Plan Mrs. Walsh is a 73 year-old woman who was brought on a sect 12a to [facility] due to pt shouting on the streets and unsafe behaviors (no description of these behaviors). Pt was medically admitted for HTN and hypokalemia. She has been noted not to be oriented to situation, place thinking she was in he hospital for physical exam. She does have some degree of paranoid ideas. She also noted to have severe anterograde amnesia with other cognitive functions like language more intact which most related pattern to alcohol related dementia, although mixed etiology can't be ruled out. PLAN 1. admit to S1, sect 12b, 5 minutes checks 2. invoked HCP- pt does not have capacity to make medical decisions 3. start risperidone for paranoia s/s to dementia, will start aricept as well. 4. order MRI 5. aftercare planning. 08/12- Continue plan of care. 08/13: Continue current regimen and plans 08/14: Continue current regimen and plans Reason for continued inpatient stay Substantial Risk for: med/psych decompensation Time Spent With Patient Time: Total time managing care of this patient today ____ minutes.
[2024-08-14] MEDS: dilTIAZem HCL CD 180 MG CAP.ER.24H PO (08:35)
[2024-08-14] MEDS: Thiamine HCL 100 MG TABLET PO (08:35)
[2024-08-14] MEDS: Potassium Chloride ER 20 MEQ TAB.ER.PRT PO (08:35)
[2024-08-14] MEDS: risperiDONE 0.5 MG TABLET PO ×2 (08:35→20:01)
[2024-08-14] MEDS: Multivitamin TABLET 1 TAB PO (08:35)
[2024-08-14] MEDS: Losartan Potassium 25 MG TABLET PO ×2 (08:35→20:01)
[2024-08-14 20:00] VITALS: BP 148/64; PULSE 85; RESP 16; TEMP 36.8; O2SAT 95
[2024-08-14 20:01] VITALS: BP 148/64
[2024-08-14] MEDS: QUEtiapine Fumarate 100 MG TABLET PO (20:01)
[2024-08-14] MEDS: Donepezil HCl 5 MG TABLET PO (20:02)
[2024-08-15] MEDS: Levothyroxine Sodium 25 MCG TABLET PO (05:39)
[2024-08-15 08:00] VITALS: BP 138/66; PULSE 83; RESP 18; TEMP 36.6; O2SAT 99
[2024-08-15] MEDS: Losartan Potassium 25 MG TABLET PO ×2 (08:17→19:54)
[2024-08-15] MEDS: dilTIAZem HCL CD 180 MG CAP.ER.24H PO (08:17)
[2024-08-15] MEDS: Thiamine HCL 100 MG TABLET PO (08:17)
[2024-08-15] MEDS: Multivitamin TABLET 1 TAB PO (08:18)
[2024-08-15] MEDS: risperiDONE 0.5 MG TABLET PO ×2 (08:18→19:54)
[2024-08-15] MEDS: Potassium Chloride ER 20 MEQ TAB.ER.PRT PO (08:18)
--- NOTE | 2024-08-15 08:52 | P.PNPSI_ITS ---
Subjective Subjective Date of Service: 08/15/24 Reason For Visit: Depression, unspecified Subjective Notes: Conditional Voluntary Healthcare Proxy: Yes Interim History: Pt sleeping. She is also social and visible on the unit. She still thinks she is looking for a job and this is part of the process. discussed with pt dx of dementia alzheimer's type, which she does not believe she has nor extent of impairments. not oriented to month, year nor situation. HCP invoked. CV signed by HCP verbally with 2 witnesses. Review of Systems Review of Systems Pt denies any acute medical complaints Yes all other systems are reviewed and are negative Mental Status Exam Mental Status Exam Narrative: Appearance: wearing casual clothing, good hygiene, in NAD Behavior: cooperative Psychomotor: no agitation or retardation noted Speech: clear, hyperverbal at times, not pressured, spontaneous TP: tangential, at times derailed. confabulation TC: liking it here, very relaxing Mood: good Affect: congruent, smiling SI: denies HI: denies VH/AH: none Delusions: there is some paranoid ideas Insight/judgment: impaired x 2. Memory/cog: alert,not oriented to place, month, day, date, severe anterograde amnesia. No signsnificant language impairment noted but pending more formal assessment. Diagnostics Vital Signs (24Hr): Vital Signs - 24 hr 08/14/24 20:00 08/14/24 20:01 Temperature 98.2 F Pulse Rate 85 Respiratory Rate 16 Blood Pressure 148/64 H 148/64 H Pulse Oximetry 95 Oxygen Delivery Method Room Air BMI result Body Mass Index 22.0 Labs 08/10/24 16:23 Imaging Radiology Impressions: ITS Impressions Brain MRI 08/10/24 18:37 IMPRESSION: Mild to moderate chronic white matter microangiopathy, more so in the sarah. Generalized brain parenchymal volume loss which is more significant in the mesial temporal lobes. No acute process. Baseline volumetric measurements support a diagnosis of primary Alzheimer's dementia. Electronically signed by: Yohannes Jean-Baptiste MD 08/12/2024 09:07 AM EDT Medications Medications Current Medications Acetaminophen (Acetaminophen 325 Mg Tablet) 650 mg PO Q6H PRN PRN Reason: Headache/Pain Mild Scale (1-3) Al Hydroxide/Mg Hydroxide (Magnesium Hydrox/Alum Hydrox 30 Ml Oral.Susp) 30 ml PO Q6H PRN PRN Reason: Heartburn/Nausea Diltiazem HCl (Diltiazem Hcl Cd 180 Mg Cap.Er.24h) 180 mg PO DAILY [facility]; Protocol Last Admin: 08/15/24 08:17 Dose: 180 mg Donepezil HCl (Donepezil Hcl 5 Mg Tablet) 5 mg PO BEDTIME [facility] Last Admin: 08/14/24 20:02 Dose: 5 mg Hydroxyzine HCl (Hydroxyzine Hcl 25 Mg Tablet) 25 mg PO Q6H PRN PRN Reason: Anxiety Last Admin: 08/13/24 20:30 Dose: 25 mg Levothyroxine Sodium (Levothyroxine Sodium 25 Mcg Tablet) 25 mcg PO DAILY@0630 [facility] Last Admin: 08/15/24 05:39 Dose: 25 mcg Losartan Potassium (Losartan Potassium 25 Mg Tablet) 25 mg PO BID [facility]; Protocol Last Admin: 08/15/24 08:17 Dose: 25 mg Magnesium Hydroxide (Milk Of Magnesia 30 Ml Oral.Susp) 30 ml PO DAILY PRN PRN Reason: Constipation Multivitamins/Vitamin C (Multivitamin Tablet) 1 tab PO DAILY [facility] Last Admin: 08/15/24 08:18 Dose: 1 tab Nicotine Polacrilex (Nicotine Polacrilex 2 Mg Gum) 4 mg BUCCAL Q2H PRN PRN Reason: Nicotine Cravings Potassium Chloride (Potassium Chloride Er 20 Meq Tab.Er.Prt) 20 meq PO DAILY [facility] Last Admin: 08/15/24 08:18 Dose: 20 meq Quetiapine Fumarate (Quetiapine Fumarate 100 Mg Tablet) 100 mg PO BEDTIME [facility] Last Admin: 08/14/24 20:01 Dose: 100 mg Risperidone (Risperidone 0.5 Mg Tablet) 0.5 mg PO BID [facility] Last Admin: 08/15/24 08:18 Dose: 0.5 mg Thiamine HCl (Thiamine Hcl 100 Mg Tablet) 100 mg PO DAILY [facility] Last Admin: 08/15/24 08:17 Dose: 100 mg Trazodone HCl (Trazodone Hcl 50 Mg Tablet) 50 mg PO BEDTIME MRX1 PRN PRN Reason: Insomnia Last Admin: 08/13/24 20:30 Dose: 50 mg Allergies Allergies Allergy/AdvReac Type Severity Reaction Status Date / Time No Known Allergies Allergy Verified 08/09/24 23:21 Assessment & Plan Assessment & Plan (1) Dementia associated with alcoholism with behavioral disturbance: Status: Acute Code(s): F10.27 - Alcohol dependence with alcohol-induced persisting dementia Plan Mrs. Walsh is a 73 year-old woman who was brought on a sect 12a to [facility] due to pt shouting on the streets and unsafe behaviors (no description of these behaviors). Pt was medically admitted for HTN and hypokalemia. She has been noted not to be oriented to situation, place thinking she was in he hospital for physical exam. She does have some degree of paranoid ideas. She also noted to have severe anterograde amnesia with other cognitive functions like language more intact which most related pattern to alcohol related dementia, although mixed etiology can't be ruled out. PLAN 1. admit to S1, sect 12b, 5 minutes checks 2. invoked HCP- pt does not have capacity to make medical decisions 3. start risperidone for paranoia s/s to dementia, will start aricept as well. 4. order MRI 5. aftercare planning. 08/12- Continue plan of care. 08/13: Continue current regimen and plans 08/14: Continue current regimen and plans 08/15 continue tx. Reason for continued inpatient stay Substantial Risk for: inability to function Time Spent With Patient Time: Total time managing care of this patient today ____ minutes.
[2024-08-15 19:48] VITALS: BP 140/64; PULSE 85; RESP 16; TEMP 36.2; O2SAT 98
[2024-08-15 19:54] VITALS: BP 140/64
[2024-08-15] MEDS: QUEtiapine Fumarate 100 MG TABLET PO (19:54)
[2024-08-15] MEDS: Donepezil HCl 5 MG TABLET PO (19:54)
[2024-08-16] MEDS: Levothyroxine Sodium 25 MCG TABLET PO (05:32)
[2024-08-16 09:25] VITALS: BP 167/78; PULSE 88; RESP 15; TEMP 36.7; O2SAT 98
[2024-08-16] MEDS: risperiDONE 0.5 MG TABLET PO ×2 (09:27→20:11)
[2024-08-16] MEDS: Thiamine HCL 100 MG TABLET PO (09:27)
[2024-08-16] MEDS: Potassium Chloride ER 20 MEQ TAB.ER.PRT PO (09:27)
[2024-08-16] MEDS: Losartan Potassium 25 MG TABLET PO ×2 (09:27→20:11)
[2024-08-16] MEDS: dilTIAZem HCL CD 180 MG CAP.ER.24H PO (09:27)
[2024-08-16] MEDS: Multivitamin TABLET 1 TAB PO (09:27)
[2024-08-16 20:00] VITALS: BP 150/69; PULSE 83; RESP 16; TEMP 36.1; O2SAT 98
[2024-08-16] MEDS: QUEtiapine Fumarate 100 MG TABLET PO (20:11)
[2024-08-16] MEDS: Donepezil HCl 5 MG TABLET PO (20:11)
--- NOTE | 2024-08-16 21:07 | P.PNPSI_ITS ---
Subjective Subjective Date of Service: 08/16/24 Reason For Visit: Depression, unspecified Interim History: Pt sleeping. She is also social and visible on the unit. She still thinks she is looking for a job and this is part of the process. discussed with pt dx of dementia alzheimer's type, which she does not believe she has nor extent of impairments. not oriented to month, year nor situation. HCP invoked. CV signed by HCP verbally with 2 witnesses. Review of Systems Review of Systems Pt denies any acute medical complaints Yes all other systems are reviewed and are negative Mental Status Exam Mental Status Exam Narrative: Appearance: wearing casual clothing, good hygiene, in NAD Behavior: cooperative Psychomotor: no agitation or retardation noted Speech: clear, hyperverbal at times, not pressured, spontaneous TP: tangential, at times derailed. confabulation TC: liking it here, very relaxing Mood: good Affect: congruent, smiling SI: denies HI: denies VH/AH: none Delusions: there is some paranoid ideas Insight/judgment: impaired x 2. Memory/cog: alert,not oriented to place, month, day, date, severe anterograde amnesia. No signsnificant language impairment noted but pending more formal assessment. Diagnostics Vital Signs (24Hr): Vital Signs - 24 hr 08/16/24 09:25 08/16/24 20:00 Temperature 98.1 F 97 F Pulse Rate 88 83 Respiratory Rate 15 16 Blood Pressure 167/78 H 150/69 H Pulse Oximetry 98 98 Oxygen Delivery Method Room Air Room Air BMI result Body Mass Index 22.0 Labs 08/10/24 16:23 Imaging Radiology Impressions: ITS Impressions Brain MRI 08/10/24 18:37 IMPRESSION: Mild to moderate chronic white matter microangiopathy, more so in the sarah. Generalized brain parenchymal volume loss which is more significant in the mesial temporal lobes. No acute process. Baseline volumetric measurements support a diagnosis of primary Alzheimer's dementia. Electronically signed by: Yohannes Jean-Baptiste MD 08/12/2024 09:07 AM EDT Medications Medications Current Medications Acetaminophen (Acetaminophen 325 Mg Tablet) 650 mg PO Q6H PRN PRN Reason: Headache/Pain Mild Scale (1-3) Al Hydroxide/Mg Hydroxide (Magnesium Hydrox/Alum Hydrox 30 Ml Oral.Susp) 30 ml PO Q6H PRN PRN Reason: Heartburn/Nausea Diltiazem HCl (Diltiazem Hcl Cd 180 Mg Cap.Er.24h) 180 mg PO DAILY [facility]; Protocol Last Admin: 08/16/24 09:27 Dose: 180 mg Donepezil HCl (Donepezil Hcl 5 Mg Tablet) 5 mg PO BEDTIME [facility] Last Admin: 08/16/24 20:11 Dose: 5 mg Hydroxyzine HCl (Hydroxyzine Hcl 25 Mg Tablet) 25 mg PO Q6H PRN PRN Reason: Anxiety Last Admin: 08/13/24 20:30 Dose: 25 mg Levothyroxine Sodium (Levothyroxine Sodium 25 Mcg Tablet) 25 mcg PO DAILY@0630 [facility] Last Admin: 08/16/24 05:32 Dose: 25 mcg Losartan Potassium (Losartan Potassium 25 Mg Tablet) 25 mg PO BID [facility]; Protocol Last Admin: 08/16/24 20:11 Dose: 25 mg Magnesium Hydroxide (Milk Of Magnesia 30 Ml Oral.Susp) 30 ml PO DAILY PRN PRN Reason: Constipation Multivitamins/Vitamin C (Multivitamin Tablet) 1 tab PO DAILY [facility] Last Admin: 08/16/24 09:27 Dose: 1 tab Nicotine Polacrilex (Nicotine Polacrilex 2 Mg Gum) 4 mg BUCCAL Q2H PRN PRN Reason: Nicotine Cravings Potassium Chloride (Potassium Chloride Er 20 Meq Tab.Er.Prt) 20 meq PO DAILY [facility] Last Admin: 08/16/24 09:27 Dose: 20 meq Quetiapine Fumarate (Quetiapine Fumarate 100 Mg Tablet) 100 mg PO BEDTIME [facility] Last Admin: 08/16/24 20:11 Dose: 100 mg Risperidone (Risperidone 0.5 Mg Tablet) 0.5 mg PO BID [facility] Last Admin: 08/16/24 20:11 Dose: 0.5 mg Thiamine HCl (Thiamine Hcl 100 Mg Tablet) 100 mg PO DAILY [facility] Last Admin: 08/16/24 09:27 Dose: 100 mg Trazodone HCl (Trazodone Hcl 50 Mg Tablet) 50 mg PO BEDTIME MRX1 PRN PRN Reason: Insomnia Last Admin: 08/13/24 20:30 Dose: 50 mg Allergies Allergies Allergy/AdvReac Type Severity Reaction Status Date / Time No Known Allergies Allergy Verified 08/09/24 23:21 Assessment & Plan Assessment & Plan (1) Dementia associated with alcoholism with behavioral disturbance: Status: Acute Code(s): F10.27 - Alcohol dependence with alcohol-induced persisting dementia (2) 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 Walsh is a 73 year-old woman who was brought on a sect 12a to [facility] due to pt shouting on the streets and unsafe behaviors (no description of these behaviors). Pt was medically admitted for HTN and hypokalemia. She has been noted not to be oriented to situation, place thinking she was in he hospital for physical exam. She does have some degree of paranoid ideas. She also noted to have severe anterograde amnesia with other cognitive functions like language more intact which most related pattern to alcohol related dementia, although mixed etiology can't be ruled out. PLAN 1. admit to S1, sect 12b, 5 minutes checks 08/12- Continue plan of care. 08/13: Continue current regimen and plans 08/14: Continue current regimen and plans 08/15 continue tx. 08/16 continue tx- MRI showed : Mild to moderate chronic white matter microangiopathy, more so in the sarah. Generalized brain parenchymal volume loss which is more significant in the mesial temporal lobes. No acute process. Baseline volumetric measurements support a diagnosis of primary Alzheimer's dementia. This information was conveyed to HCP Levi as well as results of MOCA 05/22, ACL 4 Reason for continued inpatient stay Substantial Risk for: inability to function Time Spent With Patient Time: Total time managing care of this patient today ____ minutes.
[2024-08-17] MEDS: Levothyroxine Sodium 25 MCG TABLET PO (05:37)
[2024-08-17 08:00] VITALS: BP 154/67; PULSE 88; RESP 18; TEMP 36.6; O2SAT 95
[2024-08-17] MEDS: Losartan Potassium 25 MG TABLET PO ×2 (08:28→20:40)
[2024-08-17] MEDS: Potassium Chloride ER 20 MEQ TAB.ER.PRT PO (08:28)
[2024-08-17] MEDS: dilTIAZem HCL CD 180 MG CAP.ER.24H PO (08:28)
[2024-08-17] MEDS: Multivitamin TABLET 1 TAB PO (08:29)
[2024-08-17] MEDS: Thiamine HCL 100 MG TABLET PO (08:29)
[2024-08-17] MEDS: risperiDONE 0.5 MG TABLET PO (08:29)
--- NOTE | 2024-08-17 12:03 | HO.PSYCHPN ---
Subjective Subjective Date of Service: 08/17/24 Reason For Visit: Depression, unspecified Subjective Notes: Conditional Voluntary Interim History: Pt sleeping. She can present as intrusive with peers and dysphoric. She may benefit from mood stabilizer, however, concern in terms of hx of cirrhosis with depakote, and CKD with lithium. She continues to think this is part of job interview or process. She does know that we provide services in terms of mental health but despite multiple attempts to explain reasons for being here, she is not able to retain this information. Review of Systems Review of Systems Pt denies any acute medical complaints Yes all other systems are reviewed and are negative Mental Status Exam Mental Status Exam Narrative: Appearance: wearing casual clothing, good hygiene, in NAD Behavior: cooperative Psychomotor: no agitation or retardation noted Speech: clear, hyperverbal at times, not pressured, spontaneous TP: tangential, at times derailed. confabulation TC: liking it here, very relaxing Mood: good Affect: congruent, smiling SI: denies HI: denies VH/AH: none Delusions: there is some paranoid ideas Insight/judgment: impaired x 2. Memory/cog: alert,not oriented to place, month, day, date, severe anterograde amnesia. No signsnificant language impairment noted but pending more formal assessment. Diagnostics Vital Signs (24Hr): Vital Signs - 24 hr 08/16/24 20:00 Temperature 97 F Pulse Rate 83 Respiratory Rate 16 Blood Pressure 150/69 H Pulse Oximetry 98 Oxygen Delivery Method Room Air BMI result Body Mass Index 22.0 Labs 08/10/24 16:23 Imaging Radiology Impressions: ITS Impressions Brain MRI 08/10/24 18:37 IMPRESSION: Mild to moderate chronic white matter microangiopathy, more so in the sarah. Generalized brain parenchymal volume loss which is more significant in the mesial temporal lobes. No acute process. Baseline volumetric measurements support a diagnosis of primary Alzheimer's dementia. Electronically signed by: Yohannes Jean-Baptiste MD 08/12/2024 09:07 AM EDT RP Medications Medications Current Medications Acetaminophen (Acetaminophen 325 Mg Tablet) 650 mg PO Q6H PRN PRN Reason: Headache/Pain Mild Scale (1-3) Al Hydroxide/Mg Hydroxide (Magnesium Hydrox/Alum Hydrox 30 Ml Oral.Susp) 30 ml PO Q6H PRN PRN Reason: Heartburn/Nausea Diltiazem HCl (Diltiazem Hcl Cd 180 Mg Cap.Er.24h) 180 mg PO DAILY [facility]; Protocol Last Admin: 08/17/24 08:28 Dose: 180 mg Donepezil HCl (Donepezil Hcl 5 Mg Tablet) 5 mg PO BEDTIME [facility] Last Admin: 08/16/24 20:11 Dose: 5 mg Hydroxyzine HCl (Hydroxyzine Hcl 25 Mg Tablet) 25 mg PO Q6H PRN PRN Reason: Anxiety Last Admin: 08/13/24 20:30 Dose: 25 mg Levothyroxine Sodium (Levothyroxine Sodium 25 Mcg Tablet) 25 mcg PO DAILY@0630 [facility] Last Admin: 08/17/24 05:37 Dose: 25 mcg Losartan Potassium (Losartan Potassium 25 Mg Tablet) 25 mg PO BID [facility]; Protocol Last Admin: 08/17/24 08:28 Dose: 25 mg Magnesium Hydroxide (Milk Of Magnesia 30 Ml Oral.Susp) 30 ml PO DAILY PRN PRN Reason: Constipation Multivitamins/Vitamin C (Multivitamin Tablet) 1 tab PO DAILY [facility] Last Admin: 08/17/24 08:29 Dose: 1 tab Nicotine Polacrilex (Nicotine Polacrilex 2 Mg Gum) 4 mg BUCCAL Q2H PRN PRN Reason: Nicotine Cravings Potassium Chloride (Potassium Chloride Er 20 Meq Tab.Er.Prt) 20 meq PO DAILY [facility] Last Admin: 08/17/24 08:28 Dose: 20 meq Quetiapine Fumarate (Quetiapine Fumarate 100 Mg Tablet) 100 mg PO BEDTIME [facility] Last Admin: 08/16/24 20:11 Dose: 100 mg Risperidone (Risperidone 0.5 Mg Tablet) 0.5 mg PO BID [facility] Last Admin: 08/17/24 08:29 Dose: 0.5 mg Thiamine HCl (Thiamine Hcl 100 Mg Tablet) 100 mg PO DAILY [facility] Last Admin: 08/17/24 08:29 Dose: 100 mg Trazodone HCl (Trazodone Hcl 50 Mg Tablet) 50 mg PO BEDTIME MRX1 PRN PRN Reason: Insomnia Last Admin: 08/13/24 20:30 Dose: 50 mg Allergies Allergies Allergy/AdvReac Type Severity Reaction Status Date / Time No Known Allergies Allergy Verified 08/09/24 23:21 Assessment & Plan Assessment & Plan (1) Dementia associated with alcoholism with behavioral disturbance: Status: Acute Code(s): F10.27 - Alcohol dependence with alcohol-induced persisting dementia (2) 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 Walsh is a 73 year-old woman who was brought on a sect 12a to [facility] due to pt shouting on the streets and unsafe behaviors (no description of these behaviors). Pt was medically admitted for HTN and hypokalemia. She has been noted not to be oriented to situation, place thinking she was in he hospital for physical exam. She does have some degree of paranoid ideas. She also noted to have severe anterograde amnesia with other cognitive functions like language more intact which most related pattern to alcohol related dementia, although mixed etiology can't be ruled out. PLAN 1. admit to S1, sect 12b, 5 minutes checks 08/12- Continue plan of care. 08/13: Continue current regimen and plans 08/14: Continue current regimen and plans 08/15 continue tx. 08/16 continue tx- MRI showed : Mild to moderate chronic white matter microangiopathy, more so in the sarah. Generalized brain parenchymal volume loss which is more significant in the mesial temporal lobes. No acute process. Baseline volumetric measurements support a diagnosis of primary Alzheimer's dementia. This information was conveyed to HCP Levi as well as results of MOCA 05/22, ACL 4 08/17 increase risperidone to 1mg po BID. Reason for continued inpatient stay Substantial Risk for: inability to function Time Spent With Patient Time: Total time managing care of this patient today ____ minutes.
[2024-08-17 20:00] VITALS: BP 157/72; PULSE 86; RESP 18; TEMP 36.3; O2SAT 99
[2024-08-17] MEDS: risperiDONE 1 MG TABLET PO (20:40)
[2024-08-17] MEDS: QUEtiapine Fumarate 100 MG TABLET PO (20:41)
[2024-08-17] MEDS: Donepezil HCl 5 MG TABLET PO (20:41)
[2024-08-18] MEDS: Levothyroxine Sodium 25 MCG TABLET PO (06:00)
[2024-08-18 08:00] VITALS: BP 115/62; PULSE 86; RESP 16; TEMP 36.6; O2SAT 98
[2024-08-18] MEDS: Multivitamin TABLET 1 TAB PO (10:27)
[2024-08-18 10:28] VITALS: BP 146/71; PULSE 85
[2024-08-18] MEDS: Losartan Potassium 25 MG TABLET PO ×2 (10:28→20:39)
[2024-08-18] MEDS: dilTIAZem HCL CD 180 MG CAP.ER.24H PO (10:28)
[2024-08-18] MEDS: Thiamine HCL 100 MG TABLET PO (10:28)
[2024-08-18] MEDS: risperiDONE 1 MG TABLET PO ×2 (10:29→20:40)
[2024-08-18] MEDS: Potassium Chloride ER 20 MEQ TAB.ER.PRT PO (10:29)
[2024-08-18 13:09] VITALS: BMI 22.7
--- NOTE | 2024-08-18 17:31 | P.PNPSI_ITS ---
Subjective Subjective Date of Service: 08/18/24 Reason For Visit: Depression, unspecified Subjective Notes: Conditional Voluntary Interim History: Pt sleeping. She is social with select peers. No SI/HI. Not oriented to situation. we had family meeting discussed, dx, need for 15/06 supervision. No behavioral concerns. Review of Systems Review of Systems Pt denies any acute medical complaints Yes all other systems are reviewed and are negative Mental Status Exam Mental Status Exam Narrative: Appearance: wearing casual clothing, good hygiene, in NAD Behavior: cooperative Psychomotor: no agitation or retardation noted Speech: clear, hyperverbal at times, not pressured, spontaneous TP: tangential, at times derailed. confabulation TC: liking it here, very relaxing Mood: good Affect: congruent, smiling SI: denies HI: denies VH/AH: none Delusions: there is some paranoid ideas Insight/judgment: impaired x 2. Memory/cog: alert,not oriented to place, month, day, date, severe anterograde amnesia. No signsnificant language impairment noted but pending more formal assessment. Diagnostics Vital Signs (24Hr): Vital Signs - 24 hr 08/17/24 20:00 08/18/24 08:00 08/18/24 10:28 Temperature 97.4 F 97.8 F Pulse Rate 86 86 85 Respiratory Rate 18 16 Blood Pressure 157/72 H 115/62 146/71 H Pulse Oximetry 99 98 Oxygen Delivery Method Room Air Room Air 08/18/24 10:28 Temperature Pulse Rate Respiratory Rate Blood Pressure 146/71 H Pulse Oximetry Oxygen Delivery Method BMI result Body Mass Index 22.7 Labs 08/10/24 16:23 Imaging Radiology Impressions: ITS Impressions Brain MRI 08/10/24 18:37 IMPRESSION: Mild to moderate chronic white matter microangiopathy, more so in the sarah. Generalized brain parenchymal volume loss which is more significant in the mesial temporal lobes. No acute process. Baseline volumetric measurements support a diagnosis of primary Alzheimer's dementia. Electronically signed by: Yohannes Jean-Baptiste MD 08/12/2024 09:07 AM EDT Medications Medications Current Medications Acetaminophen (Acetaminophen 325 Mg Tablet) 650 mg PO Q6H PRN PRN Reason: Headache/Pain Mild Scale (1-3) Al Hydroxide/Mg Hydroxide (Magnesium Hydrox/Alum Hydrox 30 Ml Oral.Susp) 30 ml PO Q6H PRN PRN Reason: Heartburn/Nausea Diltiazem HCl (Diltiazem Hcl Cd 180 Mg Cap.Er.24h) 180 mg PO DAILY [facility]; Protocol Last Admin: 08/18/24 10:28 Dose: 180 mg Donepezil HCl (Donepezil Hcl 5 Mg Tablet) 5 mg PO BEDTIME [facility] Last Admin: 08/17/24 20:41 Dose: 5 mg Hydroxyzine HCl (Hydroxyzine Hcl 25 Mg Tablet) 25 mg PO Q6H PRN PRN Reason: Anxiety Last Admin: 08/13/24 20:30 Dose: 25 mg Levothyroxine Sodium (Levothyroxine Sodium 25 Mcg Tablet) 25 mcg PO DAILY@0630 [facility] Last Admin: 08/18/24 06:00 Dose: 25 mcg Losartan Potassium (Losartan Potassium 25 Mg Tablet) 25 mg PO BID [facility]; Protocol Last Admin: 08/18/24 10:28 Dose: 25 mg Magnesium Hydroxide (Milk Of Magnesia 30 Ml Oral.Susp) 30 ml PO DAILY PRN PRN Reason: Constipation Multivitamins/Vitamin C (Multivitamin Tablet) 1 tab PO DAILY [facility] Last Admin: 08/18/24 10:27 Dose: 1 tab Nicotine Polacrilex (Nicotine Polacrilex 2 Mg Gum) 4 mg BUCCAL Q2H PRN PRN Reason: Nicotine Cravings Potassium Chloride (Potassium Chloride Er 20 Meq Tab.Er.Prt) 20 meq PO DAILY [facility] Last Admin: 08/18/24 10:29 Dose: 20 meq Quetiapine Fumarate (Quetiapine Fumarate 100 Mg Tablet) 100 mg PO BEDTIME [facility] Last Admin: 08/17/24 20:41 Dose: 100 mg Risperidone (Risperidone 1 Mg Tablet) 1 mg PO BID [facility] Last Admin: 08/18/24 10:29 Dose: 1 mg Thiamine HCl (Thiamine Hcl 100 Mg Tablet) 100 mg PO DAILY [facility] Last Admin: 08/18/24 10:28 Dose: 100 mg Trazodone HCl (Trazodone Hcl 50 Mg Tablet) 50 mg PO BEDTIME MRX1 PRN PRN Reason: Insomnia Last Admin: 08/13/24 20:30 Dose: 50 mg Allergies Allergies Allergy/AdvReac Type Severity Reaction Status Date / Time No Known Allergies Allergy Verified 08/09/24 23:21 Assessment & Plan Assessment & Plan (1) Dementia associated with alcoholism with behavioral disturbance: Status: Acute Code(s): F10.27 - Alcohol dependence with alcohol-induced persisting dementia (2) 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 Walsh is a 73 year-old woman who was brought on a sect 12a to [facility] due to pt shouting on the streets and unsafe behaviors (no description of these behaviors). Pt was medically admitted for HTN and hypokalemia. She has been noted not to be oriented to situation, place thinking she was in he hospital for physical exam. She does have some degree of paranoid ideas. She also noted to have severe anterograde amnesia with other cognitive functions like language more intact which most related pattern to alcohol related dementia, although mixed etiology can't be ruled out. PLAN 1. admit to S1, sect 12b, 5 minutes checks 08/12- Continue plan of care. 08/13: Continue current regimen and plans 08/14: Continue current regimen and plans 08/15 continue tx. 08/16 continue tx- MRI showed : Mild to moderate chronic white matter microangiopathy, more so in the sarah. Generalized brain parenchymal volume loss which is more significant in the mesial temporal lobes. No acute process. Baseline volumetric measurements support a diagnosis of primary Alzheimer's dementia. This information was conveyed to [facility] Levi as well as results of MOCA 05/22, ACL 4 08/17 increase risperidone to 1mg po BID. 08/18 continue tx. Reason for continued inpatient stay Substantial Risk for: inability to function Time Spent With Patient Time: Total time managing care of this patient today ____ minutes.
[2024-08-18 20:00] VITALS: BP 128/77; PULSE 82; RESP 16; TEMP 36.5; O2SAT 97
[2024-08-18 20:39] VITALS: BP 128/77
[2024-08-18] MEDS: traZODone HCL 50 MG TABLET PO (20:40)
[2024-08-18] MEDS: QUEtiapine Fumarate 100 MG TABLET PO (20:40)
[2024-08-18] MEDS: Donepezil HCl 5 MG TABLET PO (20:40)
[2024-08-18] MEDS: Acetaminophen 325 MG TABLET 650 MG PO (20:54)
[2024-08-19] MEDS: Levothyroxine Sodium 25 MCG TABLET PO (06:47)
[2024-08-19 08:28] VITALS: BP 149/66; PULSE 82; RESP 15; TEMP 36.6; O2SAT 97
[2024-08-19] MEDS: Multivitamin TABLET 1 TAB PO (08:29)
[2024-08-19] MEDS: dilTIAZem HCL CD 180 MG CAP.ER.24H PO (08:29)
[2024-08-19] MEDS: Losartan Potassium 25 MG TABLET PO ×2 (08:29→20:17)
[2024-08-19] MEDS: Potassium Chloride ER 20 MEQ TAB.ER.PRT PO (08:29)
[2024-08-19] MEDS: Thiamine HCL 100 MG TABLET PO (08:29)
[2024-08-19] MEDS: risperiDONE 1 MG TABLET PO ×2 (08:29→20:18)
[2024-08-19 20:00] VITALS: BP 138/65; PULSE 80; RESP 16; TEMP 36.4; O2SAT 97
[2024-08-19] MEDS: QUEtiapine Fumarate 100 MG TABLET PO (20:16)
[2024-08-19 20:17] VITALS: BP 138/65
[2024-08-19] MEDS: traZODone HCL 50 MG TABLET PO (20:17)
[2024-08-19] MEDS: Donepezil HCl 5 MG TABLET PO (20:17)
[2024-08-20] MEDS: Levothyroxine Sodium 25 MCG TABLET PO (06:17)
--- NOTE | 2024-08-20 08:57 | P.PNPSI_ITS ---
Subjective Subjective Date of Service: 08/19/24 Reason For Visit: Depression, unspecified Subjective Notes: Conditional Voluntary Interim History: Pt sleeping. She is social with select peers. No SI/HI. Not oriented to situation. She has been visible, less intrusive to peers. No behavioral concerns. No insight nor acceptance of cognitive impairment or need for more supports. Review of Systems Review of Systems Pt denies any acute medical complaints Yes all other systems are reviewed and are negative Mental Status Exam Mental Status Exam Narrative: Appearance: wearing casual clothing, good hygiene, in NAD Behavior: cooperative Psychomotor: no agitation or retardation noted Speech: clear, hyperverbal at times, not pressured, spontaneous TP: tangential, at times derailed. confabulation TC: liking it here, very relaxing Mood: good Affect: congruent, smiling SI: denies HI: denies VH/AH: none Delusions: there is some paranoid ideas Insight/judgment: impaired x 2. Memory/cog: alert,not oriented to place, month, day, date, severe anterograde amnesia. No signsnificant language impairment noted but pending more formal assessment. Diagnostics Vital Signs (24Hr): Vital Signs - 24 hr 08/19/24 20:00 08/19/24 20:17 Temperature 97.5 F Pulse Rate 80 Respiratory Rate 16 Blood Pressure 138/65 138/65 Pulse Oximetry 97 Oxygen Delivery Method Room Air BMI result Body Mass Index 22.7 Labs 08/10/24 16:23 Imaging Radiology Impressions: ITS Impressions Brain MRI 08/10/24 18:37 IMPRESSION: Mild to moderate chronic white matter microangiopathy, more so in the sarah. Generalized brain parenchymal volume loss which is more significant in the mesial temporal lobes. No acute process. Baseline volumetric measurements support a diagnosis of primary Alzheimer's dementia. Electronically signed by: Yohannes Jean-Baptiste MD 08/12/2024 09:07 AM EDT RP Medications Medications Current Medications Acetaminophen (Acetaminophen 325 Mg Tablet) 650 mg PO Q6H PRN PRN Reason: Headache/Pain Mild Scale (1-3) Last Admin: 08/18/24 20:54 Dose: 650 mg Al Hydroxide/Mg Hydroxide (Magnesium Hydrox/Alum Hydrox 30 Ml Oral.Susp) 30 ml PO Q6H PRN PRN Reason: Heartburn/Nausea Diltiazem HCl (Diltiazem Hcl Cd 180 Mg Cap.Er.24h) 180 mg PO DAILY [facility]; Protocol Last Admin: 08/19/24 08:29 Dose: 180 mg Donepezil HCl (Donepezil Hcl 5 Mg Tablet) 5 mg PO BEDTIME [facility] Last Admin: 08/19/24 20:17 Dose: 5 mg Hydroxyzine HCl (Hydroxyzine Hcl 25 Mg Tablet) 25 mg PO Q6H PRN PRN Reason: Anxiety Last Admin: 08/13/24 20:30 Dose: 25 mg Levothyroxine Sodium (Levothyroxine Sodium 25 Mcg Tablet) 25 mcg PO DAILY@0630 [facility] Last Admin: 08/20/24 06:17 Dose: 25 mcg Losartan Potassium (Losartan Potassium 25 Mg Tablet) 25 mg PO BID [facility]; Protocol Last Admin: 08/19/24 20:17 Dose: 25 mg Magnesium Hydroxide (Milk Of Magnesia 30 Ml Oral.Susp) 30 ml PO DAILY PRN PRN Reason: Constipation Multivitamins/Vitamin C (Multivitamin Tablet) 1 tab PO DAILY [facility] Last Admin: 08/19/24 08:29 Dose: 1 tab Nicotine Polacrilex (Nicotine Polacrilex 2 Mg Gum) 4 mg BUCCAL Q2H PRN PRN Reason: Nicotine Cravings Potassium Chloride (Potassium Chloride Er 20 Meq Tab.Er.Prt) 20 meq PO DAILY [facility] Last Admin: 08/19/24 08:29 Dose: 20 meq Quetiapine Fumarate (Quetiapine Fumarate 100 Mg Tablet) 100 mg PO BEDTIME [facility] Last Admin: 08/19/24 20:16 Dose: 100 mg Risperidone (Risperidone 1 Mg Tablet) 1 mg PO BID [facility] Last Admin: 08/19/24 20:18 Dose: 1 mg Thiamine HCl (Thiamine Hcl 100 Mg Tablet) 100 mg PO DAILY [facility] Last Admin: 08/19/24 08:29 Dose: 100 mg Trazodone HCl (Trazodone Hcl 50 Mg Tablet) 50 mg PO BEDTIME MRX1 PRN PRN Reason: Insomnia Last Admin: 08/19/24 20:17 Dose: 50 mg Allergies Allergies Allergy/AdvReac Type Severity Reaction Status Date / Time No Known Allergies Allergy Verified 08/09/24 23:21 Assessment & Plan Assessment & Plan (1) Dementia associated with alcoholism with behavioral disturbance: Status: Acute Code(s): F10.27 - Alcohol dependence with alcohol-induced persisting dementia (2) 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 Walsh is a 73 year-old woman who was brought on a sect 12a to [facility] due to pt shouting on the streets and unsafe behaviors (no description of these behaviors). Pt was medically admitted for HTN and hypokalemia. She has been noted not to be oriented to situation, place thinking she was in he hospital for physical exam. She does have some degree of paranoid ideas. She also noted to have severe anterograde amnesia with other cognitive functions like language more intact which most related pattern to alcohol related dementia, although mixed etiology can't be ruled out. PLAN 1. admit to S1, sect 12b, 5 minutes checks 08/12- Continue plan of care. 08/13: Continue current regimen and plans 08/14: Continue current regimen and plans 08/15 continue tx. 08/16 continue tx- MRI showed : Mild to moderate chronic white matter microangiopathy, more so in the sarah. Generalized brain parenchymal volume loss which is more significant in the mesial temporal lobes. No acute process. Baseline volumetric measurements support a diagnosis of primary Alzheimer's dementia. This information was conveyed to HCP Levi as well as results of MOCA 05/22, ACL 4 08/17 increase risperidone to 1mg po BID. 08/18 continue tx. 08/19 continue tx. Reason for continued inpatient stay Substantial Risk for: inability to function Time Spent With Patient Time: Total time managing care of this patient today ____ minutes.
[2024-08-20 09:01] VITALS: BP 129/71; PULSE 88; RESP 18; TEMP 36.3; O2SAT 99
[2024-08-20] MEDS: Thiamine HCL 100 MG TABLET PO (09:01)
[2024-08-20] MEDS: risperiDONE 1 MG TABLET PO ×2 (09:01→22:18)
[2024-08-20] MEDS: Multivitamin TABLET 1 TAB PO (09:01)
[2024-08-20] MEDS: hydrOXYzine HCL 25 MG TABLET PO ×2 (09:01→22:18)
[2024-08-20] MEDS: Losartan Potassium 25 MG TABLET PO ×2 (09:01→22:15)
[2024-08-20] MEDS: dilTIAZem HCL CD 180 MG CAP.ER.24H PO (09:01)
[2024-08-20] MEDS: Potassium Chloride ER 20 MEQ TAB.ER.PRT PO (09:01)
[2024-08-20 20:00] VITALS: BP 148/77; PULSE 80; RESP 16; TEMP 35.5; O2SAT 100
[2024-08-20] MEDS: QUEtiapine Fumarate 100 MG TABLET PO (22:15)
[2024-08-20] MEDS: Donepezil HCl 5 MG TABLET PO (22:15)
[2024-08-20] MEDS: traZODone HCL 50 MG TABLET PO (22:18)
[2024-08-21] MEDS: Levothyroxine Sodium 25 MCG TABLET PO (06:16)
[2024-08-21 08:35] VITALS: BP 138/71; PULSE 82; RESP 17; TEMP 36.1; O2SAT 98
[2024-08-21] MEDS: Potassium Chloride ER 20 MEQ TAB.ER.PRT PO (09:00)
[2024-08-21] MEDS: Thiamine HCL 100 MG TABLET PO (09:00)
[2024-08-21] MEDS: dilTIAZem HCL CD 180 MG CAP.ER.24H PO (09:00)
[2024-08-21] MEDS: Multivitamin TABLET 1 TAB PO (09:00)
[2024-08-21] MEDS: risperiDONE 1 MG TABLET PO ×2 (09:00→21:20)
[2024-08-21] MEDS: Losartan Potassium 25 MG TABLET PO ×2 (09:00→21:26)
[2024-08-21 20:00] VITALS: BP 159/74; PULSE 80; RESP 16; TEMP 36.9; O2SAT 96
[2024-08-21] MEDS: traZODone HCL 50 MG TABLET PO (21:20)
[2024-08-21] MEDS: hydrOXYzine HCL 25 MG TABLET PO (21:23)
[2024-08-21] MEDS: QUEtiapine Fumarate 100 MG TABLET PO (21:23)
[2024-08-21] MEDS: Donepezil HCl 5 MG TABLET PO (21:26)
--- NOTE | 2024-08-21 21:58 | HO.PSYCHPN ---
Subjective Subjective Date of Service: 08/21/24 Reason For Visit: Depression, unspecified Subjective Notes: Conditional Voluntary Interim History: Patient with limited insight as to why she is here. Patient's case reviewed in treatment planning chart reviewed patient seen. Has generally been cooperative mostly calm patient has not been grossly agitated some suspiciousness Mental Status Exam Mental Status Exam Narrative: Patient Appearance: Well Grooomed Level of Consciousness: Appropriate Patient Behavior: Appropriate and Cooperative Mood Description: Apprehensive Affect Description: Constricted and Apprehensive Memory Description: Episodic Impaired Hallucinations: None Thought Content: negative for Suicidal Ideation or negative for Homicidal Ideation Judgement: Fair Judgement and Insight: Patient perplexed difficulty comprehending situation some suspiciousness of family members Diagnostics Vital Signs (24Hr): Vital Signs - 24 hr 08/21/24 08:35 08/21/24 20:00 Temperature 96.9 F 98.4 F Pulse Rate 82 80 Respiratory Rate 17 16 Blood Pressure 138/71 159/74 H Pulse Oximetry 98 96 Oxygen Delivery Method Room Air Room Air BMI result Body Mass Index 22.7 Labs 08/10/24 16:23 Imaging Radiology Impressions: ITS Impressions Brain MRI 08/10/24 18:37 IMPRESSION: Mild to moderate chronic white matter microangiopathy, more so in the sarah. Generalized brain parenchymal volume loss which is more significant in the mesial temporal lobes. No acute process. Baseline volumetric measurements support a diagnosis of primary Alzheimer's dementia. Electronically signed by: Yohannes Jean-Baptiste MD 08/12/2024 09:07 AM EDT RP Medications Medications Current Medications Acetaminophen (Acetaminophen 325 Mg Tablet) 650 mg PO Q6H PRN PRN Reason: Headache/Pain Mild Scale (1-3) Last Admin: 08/18/24 20:54 Dose: 650 mg Al Hydroxide/Mg Hydroxide (Magnesium Hydrox/Alum Hydrox 30 Ml Oral.Susp) 30 ml PO Q6H PRN PRN Reason: Heartburn/Nausea Diltiazem HCl (Diltiazem Hcl Cd 180 Mg Cap.Er.24h) 180 mg PO DAILY [facility]; Protocol Last Admin: 08/21/24 09:00 Dose: 180 mg Donepezil HCl (Donepezil Hcl 5 Mg Tablet) 5 mg PO BEDTIME [facility] Last Admin: 08/21/24 21:26 Dose: 5 mg Hydroxyzine HCl (Hydroxyzine Hcl 25 Mg Tablet) 25 mg PO Q6H PRN PRN Reason: Anxiety Last Admin: 08/21/24 21:23 Dose: 25 mg Levothyroxine Sodium (Levothyroxine Sodium 25 Mcg Tablet) 25 mcg PO DAILY@0630 [facility] Last Admin: 08/21/24 06:16 Dose: 25 mcg Losartan Potassium (Losartan Potassium 25 Mg Tablet) 25 mg PO BID [facility]; Protocol Last Admin: 08/21/24 21:26 Dose: 25 mg Magnesium Hydroxide (Milk Of Magnesia 30 Ml Oral.Susp) 30 ml PO DAILY PRN PRN Reason: Constipation Multivitamins/Vitamin C (Multivitamin Tablet) 1 tab PO DAILY [facility] Last Admin: 08/21/24 09:00 Dose: 1 tab Nicotine Polacrilex (Nicotine Polacrilex 2 Mg Gum) 4 mg BUCCAL Q2H PRN PRN Reason: Nicotine Cravings Potassium Chloride (Potassium Chloride Er 20 Meq Tab.Er.Prt) 20 meq PO DAILY [facility] Last Admin: 08/21/24 09:00 Dose: 20 meq Quetiapine Fumarate (Quetiapine Fumarate 100 Mg Tablet) 100 mg PO BEDTIME [facility] Last Admin: 08/21/24 21:23 Dose: 100 mg Risperidone (Risperidone 1 Mg Tablet) 1 mg PO BID [facility] Last Admin: 08/21/24 09:00 Dose: 1 mg Thiamine HCl (Thiamine Hcl 100 Mg Tablet) 100 mg PO DAILY [facility] Last Admin: 08/21/24 09:00 Dose: 100 mg Trazodone HCl (Trazodone Hcl 50 Mg Tablet) 50 mg PO BEDTIME MRX1 PRN PRN Reason: Insomnia Last Admin: 08/20/24 22:18 Dose: 50 mg Allergies Allergies Allergy/AdvReac Type Severity Reaction Status Date / Time No Known Allergies Allergy Verified 08/09/24 23:21 Assessment & Plan Assessment & Plan (1) Dementia associated with alcoholism with behavioral disturbance: Status: Acute Code(s): F10.27 - Alcohol dependence with alcohol-induced persisting dementia Plan Mrs. Walsh is a 73 year-old woman who was brought on a sect 12a to [facility] due to pt shouting on the streets and unsafe behaviors (no description of these behaviors). Pt was medically admitted for HTN and hypokalemia. She has been noted not to be oriented to situation, place thinking she was in he hospital for physical exam. She does have some degree of paranoid ideas. She also noted to have severe anterograde amnesia with other cognitive functions like language more intact which most related pattern to alcohol related dementia, although mixed etiology can't be ruled out. PLAN 1. admit to S1, sect 12b, 5 minutes checks 2. invoked HCP- pt does not have capacity to make medical decisions 3. start risperidone for paranoia s/s to dementia, will start aricept as well. 4. order MRI 5. aftercare planning. 08/21/2024 Continue plan of care unclear why patient is on Risperdal and Seroquel Aricept started Healthcare proxy invoked Reason for continued inpatient stay Substantial Risk for: inability to function and rapid decompensation Time Spent With Patient Time: Total time managing care of this patient today ____ minutes.
[2024-08-22] MEDS: Levothyroxine Sodium 25 MCG TABLET PO (05:58)
[2024-08-22 08:51] VITALS: BP 157/67; PULSE 85; RESP 16; TEMP 36.4; O2SAT 96
[2024-08-22] MEDS: dilTIAZem HCL CD 180 MG CAP.ER.24H PO (08:53)
[2024-08-22] MEDS: Potassium Chloride ER 20 MEQ TAB.ER.PRT PO (08:53)
[2024-08-22] MEDS: risperiDONE 1 MG TABLET PO ×2 (08:54→20:20)
[2024-08-22] MEDS: Multivitamin TABLET 1 TAB PO (08:54)
[2024-08-22] MEDS: Thiamine HCL 100 MG TABLET PO (08:54)
[2024-08-22] MEDS: Losartan Potassium 25 MG TABLET PO ×2 (08:54→20:21)
--- NOTE | 2024-08-22 12:11 | HO.PSYCHPN ---
Subjective Subjective Date of Service: 08/22/24 Reason For Visit: Depression, unspecified Subjective Notes: Conditional Voluntary Interim History: Pt sleeping through the night. She has been visible, social with select peers. Not oriented to situation. No SI/HI. No psychosis, calmer, less accusatory of neighbors or family. Diagnostics Vital Signs (24Hr): Vital Signs - 24 hr 08/21/24 20:00 08/22/24 08:51 Temperature 98.4 F 97.6 F Pulse Rate 80 85 Respiratory Rate 16 16 Blood Pressure 159/74 H 157/67 H Pulse Oximetry 96 96 Oxygen Delivery Method Room Air Room Air BMI result Body Mass Index 22.7 Labs 08/10/24 16:23 Imaging Radiology Impressions: ITS Impressions Brain MRI 08/10/24 18:37 IMPRESSION: Mild to moderate chronic white matter microangiopathy, more so in the sarah. Generalized brain parenchymal volume loss which is more significant in the mesial temporal lobes. No acute process. Baseline volumetric measurements support a diagnosis of primary Alzheimer's dementia. Electronically signed by: Yohannes Jean-Baptiste MD 08/12/2024 09:07 AM EDT RP Medications Medications Current Medications Acetaminophen (Acetaminophen 325 Mg Tablet) 650 mg PO Q6H PRN PRN Reason: Headache/Pain Mild Scale (1-3) Last Admin: 08/18/24 20:54 Dose: 650 mg Al Hydroxide/Mg Hydroxide (Magnesium Hydrox/Alum Hydrox 30 Ml Oral.Susp) 30 ml PO Q6H PRN PRN Reason: Heartburn/Nausea Diltiazem HCl (Diltiazem Hcl Cd 180 Mg Cap.Er.24h) 180 mg PO DAILY [facility]; Protocol Last Admin: 08/22/24 08:53 Dose: 180 mg Donepezil HCl (Donepezil Hcl 5 Mg Tablet) 5 mg PO BEDTIME [facility] Last Admin: 08/21/24 21:26 Dose: 5 mg Hydroxyzine HCl (Hydroxyzine Hcl 25 Mg Tablet) 25 mg PO Q6H PRN PRN Reason: Anxiety Last Admin: 08/21/24 21:23 Dose: 25 mg Levothyroxine Sodium (Levothyroxine Sodium 25 Mcg Tablet) 25 mcg PO DAILY@0630 [facility] Last Admin: 08/22/24 05:58 Dose: 25 mcg Losartan Potassium (Losartan Potassium 25 Mg Tablet) 25 mg PO BID [facility]; Protocol Last Admin: 08/22/24 08:54 Dose: 25 mg Magnesium Hydroxide (Milk Of Magnesia 30 Ml Oral.Susp) 30 ml PO DAILY PRN PRN Reason: Constipation Multivitamins/Vitamin C (Multivitamin Tablet) 1 tab PO DAILY [facility] Last Admin: 08/22/24 08:54 Dose: 1 tab Nicotine Polacrilex (Nicotine Polacrilex 2 Mg Gum) 4 mg BUCCAL Q2H PRN PRN Reason: Nicotine Cravings Potassium Chloride (Potassium Chloride Er 20 Meq Tab.Er.Prt) 20 meq PO DAILY [facility] Last Admin: 08/22/24 08:53 Dose: 20 meq Quetiapine Fumarate (Quetiapine Fumarate 100 Mg Tablet) 100 mg PO BEDTIME [facility] Last Admin: 08/21/24 21:23 Dose: 100 mg Risperidone (Risperidone 1 Mg Tablet) 1 mg PO BID [facility] Last Admin: 08/22/24 08:54 Dose: 1 mg Thiamine HCl (Thiamine Hcl 100 Mg Tablet) 100 mg PO DAILY [facility] Last Admin: 08/22/24 08:54 Dose: 100 mg Trazodone HCl (Trazodone Hcl 50 Mg Tablet) 50 mg PO BEDTIME MRX1 PRN PRN Reason: Insomnia Last Admin: 08/21/24 21:20 Dose: 50 mg Allergies Allergies Allergy/AdvReac Type Severity Reaction Status Date / Time No Known Allergies Allergy Verified 08/09/24 23:21 Assessment & Plan Assessment & Plan (1) Dementia associated with alcoholism with behavioral disturbance: Status: Acute Code(s): F10.27 - Alcohol dependence with alcohol-induced persisting dementia (2) 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 Walsh is a 73 year-old woman who was brought on a sect 12a to [facility] due to pt shouting on the streets and unsafe behaviors (no description of these behaviors). Pt was medically admitted for HTN and hypokalemia. She has been noted not to be oriented to situation, place thinking she was in he hospital for physical exam. She does have some degree of paranoid ideas. She also noted to have severe anterograde amnesia with other cognitive functions like language more intact which most related pattern to alcohol related dementia, although mixed etiology can't be ruled out. PLAN 1. admit to S1, sect 12b, 5 minutes checks 2. invoked HCP- pt does not have capacity to make medical decisions 3. start risperidone for paranoia s/s to dementia, will start aricept as well. 4. order MRI 5. aftercare planning. 08/22- continue tx. Reason for continued inpatient stay Substantial Risk for: inability to function Time Spent With Patient Time: Total time managing care of this patient today ____ minutes.
[2024-08-22 20:00] VITALS: BP 127/59; PULSE 86; RESP 16; TEMP 35.8; O2SAT 97
[2024-08-22] MEDS: hydrOXYzine HCL 25 MG TABLET PO (20:19)
[2024-08-22] MEDS: traZODone HCL 50 MG TABLET PO (20:20)
[2024-08-22] MEDS: QUEtiapine Fumarate 100 MG TABLET PO (20:20)
[2024-08-22] MEDS: Donepezil HCl 5 MG TABLET PO (20:20)
[2024-08-22 20:21] VITALS: BP 127/59
[2024-08-23] MEDS: Levothyroxine Sodium 25 MCG TABLET PO (07:00)
[2024-08-23 08:25] VITALS: BP 156/75; PULSE 79; RESP 16; TEMP 36.1; O2SAT 98
[2024-08-23] MEDS: dilTIAZem HCL CD 180 MG CAP.ER.24H PO (08:27)
[2024-08-23] MEDS: Losartan Potassium 25 MG TABLET PO ×2 (08:27→20:11)
[2024-08-23] MEDS: Multivitamin TABLET 1 TAB PO (08:27)
[2024-08-23] MEDS: Potassium Chloride ER 20 MEQ TAB.ER.PRT PO (08:28)
[2024-08-23] MEDS: risperiDONE 1 MG TABLET PO ×2 (08:28→20:10)
[2024-08-23] MEDS: Thiamine HCL 100 MG TABLET PO (08:28)
--- NOTE | 2024-08-23 08:57 | P.PNPSI_ITS ---
Subjective Subjective Date of Service: 08/23/24 Reason For Visit: Depression, unspecified Subjective Notes: Conditional Voluntary Healthcare Proxy: Yes Interim History: Pt sleeping through the night. She has been visible, social with select peers. Not oriented to situation. No SI/HI. No psychosis, calmer, less accusatory of neighbors or family. OLGA and this medical underwriter met with pt, no insight into extend of cognitive impairments, thinks it is May and does not know how long she has been here. Easily forgetful of new information. discussed dx of dementia, which she does not think is accurate. No behavioral concerns. She is taking medications as prescribed. Review of Systems Review of Systems Pt denies any acute medical complaints Yes all other systems are reviewed and are negative Mental Status Exam Mental Status Exam Narrative: Appearance: wearing casual clothing, good hygiene, in NAD Behavior: cooperative Psychomotor: no agitation or retardation noted Speech: clear, hyperverbal at times, not pressured, spontaneous TP: tangential, at times derailed. confabulation TC: liking it here, very relaxing Mood: good Affect: congruent, smiling SI: denies HI: denies VH/AH: none Delusions: there is some paranoid ideas Insight/judgment: impaired x 2. Memory/cog: alert,not oriented to place, month, day, date, severe anterograde amnesia. No signsnificant language impairment noted but pending more formal assessment. Diagnostics Vital Signs (24Hr): Vital Signs - 24 hr 08/22/24 20:00 08/22/24 20:21 08/23/24 08:25 Temperature 96.4 F L 96.9 F Pulse Rate 86 79 Respiratory Rate 16 16 Blood Pressure 127/59 L 127/59 L 156/75 H Pulse Oximetry 97 98 Oxygen Delivery Method Room Air Room Air BMI result Body Mass Index 22.7 Labs 08/10/24 16:23 Imaging Radiology Impressions: ITS Impressions Brain MRI 08/10/24 18:37 IMPRESSION: Mild to moderate chronic white matter microangiopathy, more so in the sarah. Generalized brain parenchymal volume loss which is more significant in the mesial temporal lobes. No acute process. Baseline volumetric measurements support a diagnosis of primary Alzheimer's dementia. Electronically signed by: Yohannes Jean-Baptiste MD 08/12/2024 09:07 AM EDT Medications Medications Current Medications Acetaminophen (Acetaminophen 325 Mg Tablet) 650 mg PO Q6H PRN PRN Reason: Headache/Pain Mild Scale (1-3) Last Admin: 08/18/24 20:54 Dose: 650 mg Al Hydroxide/Mg Hydroxide (Magnesium Hydrox/Alum Hydrox 30 Ml Oral.Susp) 30 ml PO Q6H PRN PRN Reason: Heartburn/Nausea Diltiazem HCl (Diltiazem Hcl Cd 180 Mg Cap.Er.24h) 180 mg PO DAILY [facility] BEDS AT [facility]; Protocol Last Admin: 08/23/24 08:27 Dose: 180 mg Donepezil HCl (Donepezil Hcl 5 Mg Tablet) 5 mg PO BEDTIME [facility] Last Admin: 08/22/24 20:20 Dose: 5 mg Hydroxyzine HCl (Hydroxyzine Hcl 25 Mg Tablet) 25 mg PO Q6H PRN PRN Reason: Anxiety Last Admin: 08/22/24 20:19 Dose: 25 mg Levothyroxine Sodium (Levothyroxine Sodium 25 Mcg Tablet) 25 mcg PO DAILY@0630 [facility] 234 BEDS AT [facility] Last Admin: 08/23/24 07:00 Dose: 25 mcg Losartan Potassium (Losartan Potassium 25 Mg Tablet) 25 mg PO BID [facility] 234 BEDS AT [facility]; Protocol Last Admin: 08/23/24 08:27 Dose: 25 mg Magnesium Hydroxide (Milk Of Magnesia 30 Ml Oral.Susp) 30 ml PO DAILY PRN PRN Reason: Constipation Multivitamins/Vitamin C (Multivitamin Tablet) 1 tab PO DAILY [facility] 234 BEDS AT [facility] Last Admin: 08/23/24 08:27 Dose: 1 tab Nicotine Polacrilex (Nicotine Polacrilex 2 Mg Gum) 4 mg BUCCAL Q2H PRN PRN Reason: Nicotine Cravings Potassium Chloride (Potassium Chloride Er 20 Meq Tab.Er.Prt) 20 meq PO DAILY [facility] 234 BEDS AT [facility] Last Admin: 08/23/24 08:28 Dose: 20 meq Quetiapine Fumarate (Quetiapine Fumarate 100 Mg Tablet) 100 mg PO BEDTIME [facility] 234 BEDS AT [facility] Last Admin: 08/22/24 20:20 Dose: 100 mg Risperidone (Risperidone 1 Mg Tablet) 1 mg PO BID [facility] 234 BEDS AT [facility] Last Admin: 08/23/24 08:28 Dose: 1 mg Thiamine HCl (Thiamine Hcl 100 Mg Tablet) 100 mg PO DAILY [facility] 234 BEDS AT [facility] Last Admin: 08/23/24 08:28 Dose: 100 mg Trazodone HCl (Trazodone Hcl 50 Mg Tablet) 50 mg PO BEDTIME MRX1 PRN PRN Reason: Insomnia Last Admin: 08/22/24 20:20 Dose: 50 mg Allergies Allergies Allergy/AdvReac Type Severity Reaction Status Date / Time No Known Allergies Allergy Verified 08/09/24 23:21 Assessment & Plan Assessment & Plan (1) Dementia associated with alcoholism with behavioral disturbance: Status: Acute Code(s): F10.27 - Alcohol dependence with alcohol-induced persisting dementia (2) 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 Walsh is a 73 year-old woman who was brought on a sect 12a to [facility] due to pt shouting on the streets and unsafe behaviors (no description of these behaviors). Pt was medically admitted for HTN and hypokalemia. She has been noted not to be oriented to situation, place thinking she was in he hospital for physical exam. She does have some degree of paranoid ideas. She also noted to have severe anterograde amnesia with other cognitive functions like language more intact which most related pattern to alcohol related dementia, although mixed etiology can't be ruled out. PLAN 1. admit to S1, sect 12b, 5 minutes checks 2. invoked HCP- pt does not have capacity to make medical decisions 3. start risperidone for paranoia s/s to dementia, will start aricept as well. 4. order MRI 5. aftercare planning. 08/22- continue tx. 08/23 continue tx. Reason for continued inpatient stay Substantial Risk for: inability to function Time Spent With Patient Time: Total time managing care of this patient today ____ minutes.
[2024-08-23 20:00] VITALS: BP 133/61; PULSE 97; TEMP 36.1; O2SAT 96
[2024-08-23] MEDS: Donepezil HCl 5 MG TABLET PO (20:10)
[2024-08-23 20:11] VITALS: BP 133/61
[2024-08-23] MEDS: traZODone HCL 50 MG TABLET PO (20:11)
[2024-08-23] MEDS: QUEtiapine Fumarate 100 MG TABLET PO (20:11)
[2024-08-24] MEDS: Levothyroxine Sodium 25 MCG TABLET PO (06:08)
[2024-08-24 08:05] VITALS: BP 130/71; PULSE 85; RESP 18; TEMP 36.6; O2SAT 95
[2024-08-24] MEDS: Thiamine HCL 100 MG TABLET PO (08:58)
[2024-08-24] MEDS: Potassium Chloride ER 20 MEQ TAB.ER.PRT PO (08:58)
[2024-08-24] MEDS: risperiDONE 1 MG TABLET PO ×2 (08:58→20:01)
[2024-08-24] MEDS: Losartan Potassium 25 MG TABLET PO ×2 (08:59→20:01)
[2024-08-24] MEDS: dilTIAZem HCL CD 180 MG CAP.ER.24H PO (08:59)
[2024-08-24] MEDS: Multivitamin TABLET 1 TAB PO (08:59)
--- NOTE | 2024-08-24 10:02 | P.PNPSI_ITS ---
Subjective Subjective Date of Service: 08/24/24 Reason For Visit: Depression, unspecified Subjective Notes: Conditional Voluntary Interim History: Pt sleeping through the night. She is visible on the unit, social with peers. Less labile. She is not oriented to situation nor month and thinks she drove this morning here. She denies SI/HI. Family meeting held- they were updated on treatment and current presentation. Sw discussed placement, barriers. Diagnostics Vital Signs (24Hr): Vital Signs - 24 hr 08/23/24 20:00 08/23/24 20:11 08/24/24 08:05 Temperature 97 F 97.9 F Pulse Rate 97 85 Respiratory Rate 18 Blood Pressure 133/61 133/61 130/71 Pulse Oximetry 96 95 Oxygen Delivery Method Room Air Room Air BMI result Body Mass Index 22.7 Labs 08/10/24 16:23 Imaging Radiology Impressions: ITS Impressions Brain MRI 08/10/24 18:37 IMPRESSION: Mild to moderate chronic white matter microangiopathy, more so in the sarah. Generalized brain parenchymal volume loss which is more significant in the mesial temporal lobes. No acute process. Baseline volumetric measurements support a diagnosis of primary Alzheimer's dementia. Electronically signed by: Yohannes Jean-Baptiste MD 08/12/2024 09:07 AM EDT RP Medications Medications Current Medications Acetaminophen (Acetaminophen 325 Mg Tablet) 650 mg PO Q6H PRN PRN Reason: Headache/Pain Mild Scale (1-3) Last Admin: 08/18/24 20:54 Dose: 650 mg Al Hydroxide/Mg Hydroxide (Magnesium Hydrox/Alum Hydrox 30 Ml Oral.Susp) 30 ml PO Q6H PRN PRN Reason: Heartburn/Nausea Diltiazem HCl (Diltiazem Hcl Cd 180 Mg Cap.Er.24h) 180 mg PO DAILY [facility]; Protocol Last Admin: 08/24/24 08:59 Dose: 180 mg Donepezil HCl (Donepezil Hcl 5 Mg Tablet) 5 mg PO BEDTIME [facility] Last Admin: 08/23/24 20:10 Dose: 5 mg Hydroxyzine HCl (Hydroxyzine Hcl 25 Mg Tablet) 25 mg PO Q6H PRN PRN Reason: Anxiety Last Admin: 08/22/24 20:19 Dose: 25 mg Levothyroxine Sodium (Levothyroxine Sodium 25 Mcg Tablet) 25 mcg PO DAILY@0630 [facility] Last Admin: 08/24/24 06:08 Dose: 25 mcg Losartan Potassium (Losartan Potassium 25 Mg Tablet) 25 mg PO BID [facility]; Protocol Last Admin: 08/24/24 08:59 Dose: 25 mg Magnesium Hydroxide (Milk Of Magnesia 30 Ml Oral.Susp) 30 ml PO DAILY PRN PRN Reason: Constipation Multivitamins/Vitamin C (Multivitamin Tablet) 1 tab PO DAILY [facility] Last Admin: 08/24/24 08:59 Dose: 1 tab Nicotine Polacrilex (Nicotine Polacrilex 2 Mg Gum) 4 mg BUCCAL Q2H PRN PRN Reason: Nicotine Cravings Potassium Chloride (Potassium Chloride Er 20 Meq Tab.Er.Prt) 20 meq PO DAILY [facility] Last Admin: 08/24/24 08:58 Dose: 20 meq Quetiapine Fumarate (Quetiapine Fumarate 100 Mg Tablet) 100 mg PO BEDTIME [facility] Last Admin: 08/23/24 20:11 Dose: 100 mg Risperidone (Risperidone 1 Mg Tablet) 1 mg PO BID [facility] Last Admin: 08/24/24 08:58 Dose: 1 mg Thiamine HCl (Thiamine Hcl 100 Mg Tablet) 100 mg PO DAILY [facility] Last Admin: 08/24/24 08:58 Dose: 100 mg Trazodone HCl (Trazodone Hcl 50 Mg Tablet) 50 mg PO BEDTIME [facility]X1 PRN PRN Reason: Insomnia Last Admin: 08/23/24 20:11 Dose: 50 mg Allergies Allergies Allergy/AdvReac Type Severity Reaction Status Date / Time No Known Allergies Allergy Verified 08/09/24 23:21 Assessment & Plan Assessment & Plan (1) Dementia associated with alcoholism with behavioral disturbance: Status: Acute Code(s): F10.27 - Alcohol dependence with alcohol-induced persisting dementia (2) 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 Walsh is a 73 year-old woman who was brought on a sect 12a to [facility] due to pt shouting on the streets and unsafe behaviors (no description of these behaviors). Pt was medically admitted for HTN and hypokalemia. She has been noted not to be oriented to situation, place thinking she was in he hospital for physical exam. She does have some degree of paranoid ideas. She also noted to have severe anterograde amnesia with other cognitive functions like language more intact which most related pattern to alcohol related dementia, although mixed etiology can't be ruled out. PLAN 1. admit to S1, sect 12b, 5 minutes checks 2. invoked HCP- pt does not have capacity to make medical decisions 3. start risperidone for paranoia s/s to dementia, will start aricept as well. 4. order MRI 5. aftercare planning. 08/22- continue tx. 08/23 continue tx. 08/24 increase aricept 10mg po qhs. Reason for continued inpatient stay Substantial Risk for: inability to function Time Spent With Patient Time: Total time managing care of this patient today ____ minutes.
[2024-08-24 19:38] VITALS: BP 140/67; PULSE 92; RESP 18; TEMP 36.8; O2SAT 95
[2024-08-24] MEDS: traZODone HCL 50 MG TABLET PO (20:01)
[2024-08-24] MEDS: Donepezil HCl 10 MG TABLET PO (20:01)
[2024-08-24] MEDS: QUEtiapine Fumarate 100 MG TABLET PO (20:01)
[2024-08-25] MEDS: Levothyroxine Sodium 25 MCG TABLET PO (06:04)
[2024-08-25 08:00] VITALS: BP 148/73; PULSE 74; RESP 18; TEMP 36.3; O2SAT 96
[2024-08-25 08:49] VITALS: BP 148/73
[2024-08-25] MEDS: Multivitamin TABLET 1 TAB PO (08:49)
[2024-08-25] MEDS: Losartan Potassium 25 MG TABLET PO ×2 (08:49→20:28)
[2024-08-25] MEDS: risperiDONE 1 MG TABLET PO ×2 (08:50→20:28)
[2024-08-25] MEDS: Thiamine HCL 100 MG TABLET PO (08:50)
[2024-08-25] MEDS: Potassium Chloride ER 20 MEQ TAB.ER.PRT PO (08:50)
[2024-08-25 08:51] VITALS: BP 148/73; PULSE 74
[2024-08-25] MEDS: dilTIAZem HCL CD 180 MG CAP.ER.24H PO (08:51)
--- NOTE | 2024-08-25 11:00 | HO.PSYCHPN ---
Subjective Subjective Date of Service: 08/25/24 Reason For Visit: Depression, unspecified Subjective Notes: Conditional Voluntary Healthcare Proxy: Yes Interim History: Pt sleeping through the night. Pt visible on the unit, social with select peers. He reports mood is good. He reports he enjoys some groups here. No SI/HI. no oriented to situation, month. Review of Systems Review of Systems Pt denies any acute medical complaints Yes all other systems are reviewed and are negative Mental Status Exam Mental Status Exam Narrative: Appearance: wearing casual clothing, good hygiene, in NAD Behavior: cooperative Psychomotor: no agitation or retardation noted Speech: clear, hyperverbal at times, not pressured, spontaneous TP: tangential, at times derailed. confabulation TC: liking it here, very relaxing Mood: good Affect: congruent, smiling SI: denies HI: denies VH/AH: none Delusions: there is some paranoid ideas Insight/judgment: impaired x 2. Memory/cog: alert,not oriented to place, month, day, date, severe anterograde amnesia. No signsnificant language impairment noted but pending more formal assessment. Diagnostics Vital Signs (24Hr): Vital Signs - 24 hr 08/24/24 19:38 08/25/24 08:00 08/25/24 08:49 Temperature 98.2 F 97.3 F Pulse Rate 92 74 Respiratory Rate 18 18 Blood Pressure 140/67 H 148/73 H 148/73 H Pulse Oximetry 95 96 Oxygen Delivery Method Room Air Room Air 08/25/24 08:51 Temperature Pulse Rate 74 Respiratory Rate Blood Pressure 148/73 H Pulse Oximetry Oxygen Delivery Method BMI result Body Mass Index 22.7 Labs 08/10/24 16:23 Imaging Radiology Impressions: ITS Impressions Brain MRI 08/10/24 18:37 IMPRESSION: Mild to moderate chronic white matter microangiopathy, more so in the sarah. Generalized brain parenchymal volume loss which is more significant in the mesial temporal lobes. No acute process. Baseline volumetric measurements support a diagnosis of primary Alzheimer's dementia. Electronically signed by: Yohannes Jean-Baptiste MD 08/12/2024 09:07 AM EDT Medications Medications Current Medications Acetaminophen (Acetaminophen 325 Mg Tablet) 650 mg PO Q6H PRN PRN Reason: Headache/Pain Mild Scale (1-3) Last Admin: 08/18/24 20:54 Dose: 650 mg Al Hydroxide/Mg Hydroxide (Magnesium Hydrox/Alum Hydrox 30 Ml Oral.Susp) 30 ml PO Q6H PRN PRN Reason: Heartburn/Nausea Diltiazem HCl (Diltiazem Hcl Cd 180 Mg Cap.Er.24h) 180 mg PO DAILY [facility]; Protocol Last Admin: 08/25/24 08:51 Dose: 180 mg Donepezil HCl (Donepezil Hcl 10 Mg Tablet) 10 mg PO BEDTIME [facility] Last Admin: 08/24/24 20:01 Dose: 10 mg Hydroxyzine HCl (Hydroxyzine Hcl 25 Mg Tablet) 25 mg PO Q6H PRN PRN Reason: Anxiety Last Admin: 08/22/24 20:19 Dose: 25 mg Levothyroxine Sodium (Levothyroxine Sodium 25 Mcg Tablet) 25 mcg PO DAILY@0630 [facility] Last Admin: 08/25/24 06:04 Dose: 25 mcg Losartan Potassium (Losartan Potassium 25 Mg Tablet) 25 mg PO BID [facility]; Protocol Last Admin: 08/25/24 08:49 Dose: 25 mg Magnesium Hydroxide (Milk Of Magnesia 30 Ml Oral.Susp) 30 ml PO DAILY PRN PRN Reason: Constipation Multivitamins/Vitamin C (Multivitamin Tablet) 1 tab PO DAILY [facility] Last Admin: 08/25/24 08:49 Dose: 1 tab Nicotine Polacrilex (Nicotine Polacrilex 2 Mg Gum) 4 mg BUCCAL Q2H PRN PRN Reason: Nicotine Cravings Potassium Chloride (Potassium Chloride Er 20 Meq Tab.Er.Prt) 20 meq PO DAILY [facility] Last Admin: 08/25/24 08:50 Dose: 20 meq Quetiapine Fumarate (Quetiapine Fumarate 100 Mg Tablet) 100 mg PO BEDTIME [facility] Last Admin: 08/24/24 20:01 Dose: 100 mg Risperidone (Risperidone 1 Mg Tablet) 1 mg PO BID [facility] Last Admin: 08/25/24 08:50 Dose: 1 mg Thiamine HCl (Thiamine Hcl 100 Mg Tablet) 100 mg PO DAILY [facility] Last Admin: 08/25/24 08:50 Dose: 100 mg Trazodone HCl (Trazodone Hcl 50 Mg Tablet) 50 mg PO BEDTIME MRX1 PRN PRN Reason: Insomnia Last Admin: 08/24/24 20:01 Dose: 50 mg Allergies Allergies Allergy/AdvReac Type Severity Reaction Status Date / Time No Known Allergies Allergy Verified 08/09/24 23:21 Assessment & Plan Assessment & Plan (1) Dementia associated with alcoholism with behavioral disturbance: Status: Acute Code(s): F10.27 - Alcohol dependence with alcohol-induced persisting dementia (2) 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 Walsh is a 73 year-old woman who was brought on a sect 12a to [facility] due to pt shouting on the streets and unsafe behaviors (no description of these behaviors). Pt was medically admitted for HTN and hypokalemia. She has been noted not to be oriented to situation, place thinking she was in he hospital for physical exam. She does have some degree of paranoid ideas. She also noted to have severe anterograde amnesia with other cognitive functions like language more intact which most related pattern to alcohol related dementia, although mixed etiology can't be ruled out. PLAN 1. admit to S1, sect 12b, 5 minutes checks 2. invoked HCP- pt does not have capacity to make medical decisions 3. start risperidone for paranoia s/s to dementia, will start aricept as well. 4. order MRI 5. aftercare planning. 08/22- continue tx. 08/23 continue tx. 08/24 increase aricept 10mg po qhs. 08/25 continue tx. Reason for continued inpatient stay Substantial Risk for: inability to function Time Spent With Patient Time: Total time managing care of this patient today ____ minutes.
[2024-08-25 20:00] VITALS: BP 152/72; PULSE 74; RESP 18; TEMP 36.6; O2SAT 99
[2024-08-25] MEDS: traZODone HCL 50 MG TABLET PO (20:28)
[2024-08-25] MEDS: Donepezil HCl 10 MG TABLET PO (20:28)
[2024-08-25] MEDS: QUEtiapine Fumarate 100 MG TABLET PO (20:28)
[2024-08-26] MEDS: Levothyroxine Sodium 25 MCG TABLET PO (06:06)
[2024-08-26 08:00] VITALS: BP 133/63; PULSE 77; RESP 18; TEMP 36.1; O2SAT 97
[2024-08-26 08:33] VITALS: BP 133/63
[2024-08-26] MEDS: Losartan Potassium 25 MG TABLET PO ×2 (08:33→20:28)
[2024-08-26 08:34] VITALS: BP 133/63; PULSE 77
[2024-08-26] MEDS: dilTIAZem HCL CD 180 MG CAP.ER.24H PO (08:34)
[2024-08-26] MEDS: risperiDONE 1 MG TABLET PO ×2 (08:35→20:27)
[2024-08-26] MEDS: Multivitamin TABLET 1 TAB PO (08:35)
[2024-08-26] MEDS: Thiamine HCL 100 MG TABLET PO (08:35)
[2024-08-26] MEDS: Potassium Chloride ER 20 MEQ TAB.ER.PRT PO (08:35)
[2024-08-26 14:40] VITALS: BMI 23.0
--- NOTE | 2024-08-26 14:43 | P.PNPSI_ITS ---
Subjective Subjective Date of Service: 08/26/24 Reason For Visit: Depression, unspecified Subjective Notes: Conditional Voluntary Interim History: Pt sleeping through the night. No change. She takes medications as prescribed. Pt visible on the unit, social with select peers. He reports mood is good. He reports he enjoys some groups here. No SI/HI. no oriented to situation, month. Review of Systems Review of Systems Pt denies any acute medical complaints Yes all other systems are reviewed and are negative Mental Status Exam Mental Status Exam Narrative: Appearance: wearing casual clothing, good hygiene, in NAD Behavior: cooperative Psychomotor: no agitation or retardation noted Speech: clear, hyperverbal at times, not pressured, spontaneous TP: tangential, at times derailed. confabulation TC: liking it here, very relaxing Mood: good Affect: congruent, smiling SI: denies HI: denies VH/AH: none Delusions: there is some paranoid ideas Insight/judgment: impaired x 2. Memory/cog: alert,not oriented to place, month, day, date, severe anterograde amnesia. No signsnificant language impairment noted but pending more formal assessment. Diagnostics Vital Signs (24Hr): Vital Signs - 24 hr 08/25/24 20:00 08/26/24 08:00 08/26/24 08:33 Temperature 97.8 F 97.0 F Pulse Rate 74 77 Respiratory Rate 18 18 Blood Pressure 152/72 H 133/63 133/63 Pulse Oximetry 99 97 Oxygen Delivery Method Room Air Room Air 08/26/24 08:34 Temperature Pulse Rate 77 Respiratory Rate Blood Pressure 133/63 Pulse Oximetry Oxygen Delivery Method BMI result Body Mass Index 23.0 Labs 08/10/24 16:23 Imaging Radiology Impressions: ITS Impressions Brain MRI 08/10/24 18:37 IMPRESSION: Mild to moderate chronic white matter microangiopathy, more so in the sarah. Generalized brain parenchymal volume loss which is more significant in the mesial temporal lobes. No acute process. Baseline volumetric measurements support a diagnosis of primary Alzheimer's dementia. Electronically signed by: Yohannes Jean-Baptiste MD 08/12/2024 09:07 AM EDT Medications Medications Current Medications Acetaminophen (Acetaminophen 325 Mg Tablet) 650 mg PO Q6H PRN PRN Reason: Headache/Pain Mild Scale (1-3) Last Admin: 08/18/24 20:54 Dose: 650 mg Al Hydroxide/Mg Hydroxide (Magnesium Hydrox/Alum Hydrox 30 Ml Oral.Susp) 30 ml PO Q6H PRN PRN Reason: Heartburn/Nausea Diltiazem HCl (Diltiazem Hcl Cd 180 Mg Cap.Er.24h) 180 mg PO DAILY [facility]; Protocol Last Admin: 08/26/24 08:34 Dose: 180 mg Donepezil HCl (Donepezil Hcl 10 Mg Tablet) 10 mg PO BEDTIME [facility] Last Admin: 08/25/24 20:28 Dose: 10 mg Hydroxyzine HCl (Hydroxyzine Hcl 25 Mg Tablet) 25 mg PO Q6H PRN PRN Reason: Anxiety Last Admin: 08/22/24 20:19 Dose: 25 mg Levothyroxine Sodium (Levothyroxine Sodium 25 Mcg Tablet) 25 mcg PO DAILY@0630 [facility] Last Admin: 08/26/24 06:06 Dose: 25 mcg Losartan Potassium (Losartan Potassium 25 Mg Tablet) 25 mg PO BID [facility]; Protocol Last Admin: 08/26/24 08:33 Dose: 25 mg Magnesium Hydroxide (Milk Of Magnesia 30 Ml Oral.Susp) 30 ml PO DAILY PRN PRN Reason: Constipation Multivitamins/Vitamin C (Multivitamin Tablet) 1 tab PO DAILY [facility] Last Admin: 08/26/24 08:35 Dose: 1 tab Nicotine Polacrilex (Nicotine Polacrilex 2 Mg Gum) 4 mg BUCCAL Q2H PRN PRN Reason: Nicotine Cravings Potassium Chloride (Potassium Chloride Er 20 Meq Tab.Er.Prt) 20 meq PO DAILY [facility] Last Admin: 08/26/24 08:35 Dose: 20 meq Quetiapine Fumarate (Quetiapine Fumarate 100 Mg Tablet) 100 mg PO BEDTIME [facility] Last Admin: 08/25/24 20:28 Dose: 100 mg Risperidone (Risperidone 1 Mg Tablet) 1 mg PO BID [facility] Last Admin: 08/26/24 08:35 Dose: 1 mg Thiamine HCl (Thiamine Hcl 100 Mg Tablet) 100 mg PO DAILY [facility] Last Admin: 08/26/24 08:35 Dose: 100 mg Trazodone HCl (Trazodone Hcl 50 Mg Tablet) 50 mg PO BEDTIME [facility]X1 PRN PRN Reason: Insomnia Last Admin: 08/25/24 20:28 Dose: 50 mg Allergies Allergies Allergy/AdvReac Type Severity Reaction Status Date / Time No Known Allergies Allergy Verified 08/09/24 23:21 Assessment & Plan Assessment & Plan (1) Dementia associated with alcoholism with behavioral disturbance: Status: Acute Code(s): F10.27 - Alcohol dependence with alcohol-induced persisting dementia (2) 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 Walsh is a 73 year-old woman who was brought on a sect 12a to [facility] due to pt shouting on the streets and unsafe behaviors (no description of these behaviors). Pt was medically admitted for HTN and hypokalemia. She has been noted not to be oriented to situation, place thinking she was in he hospital for physical exam. She does have some degree of paranoid ideas. She also noted to have severe anterograde amnesia with other cognitive functions like language more intact which most related pattern to alcohol related dementia, although mixed etiology can't be ruled out. PLAN 1. admit to S1, sect 12b, 5 minutes checks 2. invoked HCP- pt does not have capacity to make medical decisions 3. start risperidone for paranoia s/s to dementia, will start aricept as well. 4. order MRI 5. aftercare planning. 08/22- continue tx. 08/23 continue tx. 08/24 increase aricept 10mg po qhs. 08/25 continue tx. 08/26 continue tx. Reason for continued inpatient stay Substantial Risk for: inability to function Time Spent With Patient Time: Total time managing care of this patient today ____ minutes.
[2024-08-26 20:00] VITALS: BP 124/59; PULSE 86; RESP 18; TEMP 36.6; O2SAT 97
[2024-08-26] MEDS: Donepezil HCl 10 MG TABLET PO (20:27)
[2024-08-26] MEDS: QUEtiapine Fumarate 100 MG TABLET PO (20:28)
[2024-08-26] MEDS: traZODone HCL 50 MG TABLET PO (20:28)
[2024-08-27] MEDS: Levothyroxine Sodium 25 MCG TABLET PO (06:00)
[2024-08-27 08:00] VITALS: BP 142/80; PULSE 86; RESP 18; TEMP 36.6; O2SAT 99
[2024-08-27 08:35] VITALS: BP 142/80; PULSE 86
[2024-08-27] MEDS: Multivitamin TABLET 1 TAB PO (08:35)
[2024-08-27] MEDS: Thiamine HCL 100 MG TABLET PO (08:35)
[2024-08-27] MEDS: dilTIAZem HCL CD 180 MG CAP.ER.24H PO (08:35)
[2024-08-27 08:36] VITALS: BP 142/80
[2024-08-27] MEDS: Losartan Potassium 25 MG TABLET PO ×2 (08:36→21:38)
[2024-08-27] MEDS: Potassium Chloride ER 20 MEQ TAB.ER.PRT PO (08:36)
[2024-08-27] MEDS: risperiDONE 1 MG TABLET PO ×2 (08:36→21:39)
--- NOTE | 2024-08-27 14:08 | P.PNPSI_ITS ---
Subjective Subjective Date of Service: 08/27/24 Reason For Visit: Depression, unspecified Subjective Notes: Conditional Voluntary (hcp) Healthcare Proxy: Yes Medical Problems Affecting Mental Status: Yes (Alz dementia) Interim History: 73 yo reports things are going well , happy to help with plants on outside area- feels she is on right medications no s/e and happy about interactions with staff and other patients- REports sleeping- Medication Compliance: Yes Side effects from medications: No Attending Groups: Yes Review of Systems Acute medical concerns: No Medical Review of Systems: unchanged Mental Status Exam Mental Status Exam Patient Appearance: Well Grooomed Patient Orientation: Person and Place Level of Consciousness: Awake Patient Behavior: Talkative, Cooperative and Good Eye Contact Mood Description: Happy Affect Description: Elated Patient Cognition Impaired: Yes Ability to Follow Directions: Fair Speech Pattern: Clear Delusions: Not Present Thought Process: Racing Thought Content: positive for Circumstantial Judgement: Poor Diagnostics Vital Signs (24Hr): Vital Signs - 24 hr 08/26/24 20:00 08/27/24 08:00 08/27/24 08:35 Temperature 97.9 F 97.9 F Pulse Rate 86 86 86 Respiratory Rate 18 18 Blood Pressure 124/59 L 142/80 H 142/80 H Pulse Oximetry 97 99 Oxygen Delivery Method Room Air Room Air 08/27/24 08:36 Temperature Pulse Rate Respiratory Rate Blood Pressure 142/80 H Pulse Oximetry Oxygen Delivery Method BMI result Body Mass Index 23.0 Labs 08/10/24 16:23 Imaging Radiology Impressions: ITS Impressions Brain MRI 08/10/24 18:37 IMPRESSION: Mild to moderate chronic white matter microangiopathy, more so in the sarah. Generalized brain parenchymal volume loss which is more significant in the mesial temporal lobes. No acute process. Baseline volumetric measurements support a diagnosis of primary Alzheimer's dementia. Electronically signed by: Yohannes Jean-Baptiste MD 08/12/2024 09:07 AM EDT RP Medications Medications Current Medications Acetaminophen (Acetaminophen 325 Mg Tablet) 650 mg PO Q6H PRN PRN Reason: Headache/Pain Mild Scale (1-3) Last Admin: 08/18/24 20:54 Dose: 650 mg Al Hydroxide/Mg Hydroxide (Magnesium Hydrox/Alum Hydrox 30 Ml Oral.Susp) 30 ml PO Q6H PRN PRN Reason: Heartburn/Nausea Diltiazem HCl (Diltiazem Hcl Cd 180 Mg Cap.Er.24h) 180 mg PO DAILY [facility]; Protocol Last Admin: 08/27/24 08:35 Dose: 180 mg Donepezil HCl (Donepezil Hcl 10 Mg Tablet) 10 mg PO BEDTIME [facility] Last Admin: 08/26/24 20:27 Dose: 10 mg Hydroxyzine HCl (Hydroxyzine Hcl 25 Mg Tablet) 25 mg PO Q6H PRN PRN Reason: Anxiety Last Admin: 08/22/24 20:19 Dose: 25 mg Levothyroxine Sodium (Levothyroxine Sodium 25 Mcg Tablet) 25 mcg PO DAILY@0630 [facility] Last Admin: 08/27/24 06:00 Dose: 25 mcg Losartan Potassium (Losartan Potassium 25 Mg Tablet) 25 mg PO BID [facility]; Protocol Last Admin: 08/27/24 08:36 Dose: 25 mg Magnesium Hydroxide (Milk Of Magnesia 30 Ml Oral.Susp) 30 ml PO DAILY PRN PRN Reason: Constipation Multivitamins/Vitamin C (Multivitamin Tablet) 1 tab PO DAILY [facility] Last Admin: 08/27/24 08:35 Dose: 1 tab Nicotine Polacrilex (Nicotine Polacrilex 2 Mg Gum) 4 mg BUCCAL Q2H PRN PRN Reason: Nicotine Cravings Potassium Chloride (Potassium Chloride Er 20 Meq Tab.Er.Prt) 20 meq PO DAILY [facility] Last Admin: 08/27/24 08:36 Dose: 20 meq Quetiapine Fumarate (Quetiapine Fumarate 100 Mg Tablet) 100 mg PO BEDTIME [facility] Last Admin: 08/26/24 20:28 Dose: 100 mg Risperidone (Risperidone 1 Mg Tablet) 1 mg PO BID [facility] Last Admin: 08/27/24 08:36 Dose: 1 mg Thiamine HCl (Thiamine Hcl 100 Mg Tablet) 100 mg PO DAILY [facility] Last Admin: 08/27/24 08:35 Dose: 100 mg Trazodone HCl (Trazodone Hcl 50 Mg Tablet) 50 mg PO BEDTIME [facility]X1 PRN PRN Reason: Insomnia Last Admin: 08/26/24 20:28 Dose: 50 mg Allergies Allergies Allergy/AdvReac Type Severity Reaction Status Date / Time No Known Allergies Allergy Verified 08/09/24 23:21 Assessment & Plan Assessment & Plan (1) Dementia associated with alcoholism with behavioral disturbance: Status: Acute Code(s): F10.27 - Alcohol dependence with alcohol-induced persisting dementia (2) 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 Walsh is a 73 year-old woman who was brought on a sect 12a to [facility] due to pt shouting on the streets and unsafe behaviors (no description of these behaviors). Pt was medically admitted for HTN and hypokalemia. She has been noted not to be oriented to situation, place thinking she was in he hospital for physical exam. She does have some degree of paranoid ideas. She also noted to have severe anterograde amnesia with other cognitive functions like language more intact which most related pattern to alcohol related dementia, although mixed etiology can't be ruled out. PLAN 1. admit to S1, sect 12b, 5 minutes checks 2. invoked HCP- pt does not have capacity to make medical decisions 3. start risperidone for paranoia s/s to dementia, will start aricept as well. 4. order MRI 5. aftercare planning. 08/22- continue tx. 08/23 continue tx. 08/24 increase aricept 10mg po qhs. 08/25 continue tx. 08/26 continue tx. 08/27/ CTP Reason for continued inpatient stay Substantial Risk for: inability to function and rapid decompensation Time Spent With Patient Time: Total time managing care of this patient today ____ minutes.
[2024-08-27 20:00] VITALS: BP 113/59; PULSE 84; RESP 18; TEMP 36.2; O2SAT 95
[2024-08-27] MEDS: traZODone HCL 50 MG TABLET PO (21:39)
[2024-08-27] MEDS: hydrOXYzine HCL 25 MG TABLET PO (21:39)
[2024-08-27] MEDS: Donepezil HCl 10 MG TABLET PO (21:39)
[2024-08-27] MEDS: QUEtiapine Fumarate 100 MG TABLET PO (21:39)
[2024-08-28] MEDS: Levothyroxine Sodium 25 MCG TABLET PO (05:58)
[2024-08-28 09:51] VITALS: BP 142/65; PULSE 92; RESP 22; TEMP 36.6; O2SAT 97
[2024-08-28] MEDS: Potassium Chloride ER 20 MEQ TAB.ER.PRT PO (09:56)
[2024-08-28] MEDS: Multivitamin TABLET 1 TAB PO (09:56)
[2024-08-28] MEDS: risperiDONE 1 MG TABLET PO ×2 (09:56→20:31)
[2024-08-28] MEDS: Losartan Potassium 25 MG TABLET PO ×2 (09:56→20:31)
[2024-08-28] MEDS: Thiamine HCL 100 MG TABLET PO (09:56)
[2024-08-28] MEDS: dilTIAZem HCL CD 180 MG CAP.ER.24H PO (09:56)
--- NOTE | 2024-08-28 14:19 | HO.PSYCHPN ---
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 Medication Compliance: Yes Side effects from medications: No Attending Groups: Yes Review of Systems Acute medical concerns: Yes dementia Medical Review of Systems: unchanged Mental Status Exam Mental Status Exam Patient Appearance: Well Grooomed Patient Orientation: Person and Place Level of Consciousness: Awake Patient Behavior: Talkative, Cooperative and Good Eye Contact Mood Description: Happy Affect Description: Elated Patient Cognition Impaired: Yes Ability to Follow Directions: Fair Speech Pattern: Clear Delusions: Not Present Thought Process: Racing Thought Content: positive for Circumstantial Judgement: Poor Diagnostics Vital Signs (24Hr): Vital Signs - 24 hr 08/27/24 20:00 08/28/24 09:51 Temperature 97.2 F 97.9 F Pulse Rate 84 92 Respiratory Rate 18 22 H Blood Pressure 113/59 L 142/65 H Pulse Oximetry 95 97 Oxygen Delivery Method Room Air Room Air BMI result Body Mass Index 23.0 Labs 08/10/24 16:23 Imaging Radiology Impressions: ITS Impressions Brain MRI 08/10/24 18:37 IMPRESSION: Mild to moderate chronic white matter microangiopathy, more so in the sarah. Generalized brain parenchymal volume loss which is more significant in the mesial temporal lobes. No acute process. Baseline volumetric measurements support a diagnosis of primary Alzheimer's dementia. Electronically signed by: Yohannes Jean-Baptiste MD 08/12/2024 09:07 AM EDT RP Medications Medications Current Medications Acetaminophen (Acetaminophen 325 Mg Tablet) 650 mg PO Q6H PRN PRN Reason: Headache/Pain Mild Scale (1-3) Last Admin: 08/18/24 20:54 Dose: 650 mg Al Hydroxide/Mg Hydroxide (Magnesium Hydrox/Alum Hydrox 30 Ml Oral.Susp) 30 ml PO Q6H PRN PRN Reason: Heartburn/Nausea Diltiazem HCl (Diltiazem Hcl Cd 180 Mg Cap.Er.24h) 180 mg PO DAILY [facility]; Protocol Last Admin: 08/28/24 09:56 Dose: 180 mg Donepezil HCl (Donepezil Hcl 10 Mg Tablet) 10 mg PO BEDTIME [facility] Last Admin: 08/27/24 21:39 Dose: 10 mg Hydroxyzine HCl (Hydroxyzine Hcl 25 Mg Tablet) 25 mg PO Q6H PRN PRN Reason: Anxiety Last Admin: 08/27/24 21:39 Dose: 25 mg Levothyroxine Sodium (Levothyroxine Sodium 25 Mcg Tablet) 25 mcg PO DAILY@0630 [facility] Last Admin: 08/28/24 05:58 Dose: 25 mcg Losartan Potassium (Losartan Potassium 25 Mg Tablet) 25 mg PO BID [facility]; Protocol Last Admin: 08/28/24 09:56 Dose: 25 mg Magnesium Hydroxide (Milk Of Magnesia 30 Ml Oral.Susp) 30 ml PO DAILY PRN PRN Reason: Constipation Multivitamins/Vitamin C (Multivitamin Tablet) 1 tab PO DAILY [facility] Last Admin: 08/28/24 09:56 Dose: 1 tab Nicotine Polacrilex (Nicotine Polacrilex 2 Mg Gum) 4 mg BUCCAL Q2H PRN PRN Reason: Nicotine Cravings Potassium Chloride (Potassium Chloride Er 20 Meq Tab.Er.Prt) 20 meq PO DAILY [facility] Last Admin: 08/28/24 09:56 Dose: 20 meq Quetiapine Fumarate (Quetiapine Fumarate 100 Mg Tablet) 100 mg PO BEDTIME [facility] Last Admin: 08/27/24 21:39 Dose: 100 mg Risperidone (Risperidone 1 Mg Tablet) 1 mg PO BID [facility] Last Admin: 08/28/24 09:56 Dose: 1 mg Thiamine HCl (Thiamine Hcl 100 Mg Tablet) 100 mg PO DAILY [facility] Last Admin: 08/28/24 09:56 Dose: 100 mg Trazodone HCl (Trazodone Hcl 50 Mg Tablet) 50 mg PO BEDTIME MRX1 PRN PRN Reason: Insomnia Last Admin: 08/27/24 21:39 Dose: 50 mg Allergies Allergies Allergy/AdvReac Type Severity Reaction Status Date / Time No Known Allergies Allergy Verified 08/09/24 23:21 Assessment & Plan Assessment & Plan (1) Dementia associated with alcoholism with behavioral disturbance: Status: Acute Code(s): F10.27 - Alcohol dependence with alcohol-induced persisting dementia (2) 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 Walsh is a 73 year-old woman who was brought on a sect 12a to [facility] due to pt shouting on the streets and unsafe behaviors (no description of these behaviors). Pt was medically admitted for HTN and hypokalemia. She has been noted not to be oriented to situation, place thinking she was in he hospital for physical exam. She does have some degree of paranoid ideas. She also noted to have severe anterograde amnesia with other cognitive functions like language more intact which most related pattern to alcohol related dementia, although mixed etiology can't be ruled out. PLAN 1. admit to S1, sect 12b, 5 minutes checks 2. invoked HCP- pt does not have capacity to make medical decisions 3. start risperidone for paranoia s/s to dementia, will start aricept as well. 4. order MRI 5. aftercare planning. 08/22- continue tx. 08/23 continue tx. 08/24 increase aricept 10mg po qhs. 08/25 continue tx. 08/26 continue tx. 08/27/ CTP 08/28 CTP Reason for continued inpatient stay Substantial Risk for: inability to function, rapid decompensation and med/psych decompensation Time Spent With Patient Time: Total time managing care of this patient today ____ minutes.
[2024-08-28 19:54] VITALS: BP 122/57; PULSE 78; RESP 18; TEMP 36.4; O2SAT 95
[2024-08-28] MEDS: traZODone HCL 50 MG TABLET PO ×2 (20:31→21:41)
[2024-08-28] MEDS: Donepezil HCl 10 MG TABLET PO (20:31)
[2024-08-28] MEDS: QUEtiapine Fumarate 100 MG TABLET PO (20:31)
[2024-08-28] MEDS: hydrOXYzine HCL 25 MG TABLET PO (20:31)
[2024-08-29] MEDS: Levothyroxine Sodium 25 MCG TABLET PO (05:57)
--- NOTE | 2024-08-29 09:46 | P.PNPSI_ITS ---
Subjective Subjective Date of Service: 08/29/24 Reason For Visit: Depression, unspecified Subjective Notes: Conditional Voluntary Interim History: Pt slept through the night. She is visible on the unit, social with peers. No aggression. She bit dysphoric at times but more regulated in terms of her mood. pending placement Review of Systems Review of Systems Pt denies any acute medical complaints Yes all other systems are reviewed and are negative Mental Status Exam Mental Status Exam Narrative: Appearance: wearing casual clothing, good hygiene, in NAD Behavior: cooperative Psychomotor: no agitation or retardation noted Speech: clear, hyperverbal at times, not pressured, spontaneous TP: tangential, at times derailed. confabulation TC: liking it here, very relaxing Mood: good Affect: congruent, smiling SI: denies HI: denies VH/AH: none Delusions: there is some paranoid ideas Insight/judgment: impaired x 2. Memory/cog: alert,not oriented to place, month, day, date, severe anterograde amnesia. No signsnificant language impairment noted but pending more formal assessment. Diagnostics Vital Signs (24Hr): Vital Signs - 24 hr 08/28/24 09:51 08/28/24 19:54 Temperature 97.9 F 97.5 F Pulse Rate 92 78 Respiratory Rate 22 H 18 Blood Pressure 142/65 H 122/57 L Pulse Oximetry 97 95 Oxygen Delivery Method Room Air Room Air BMI result Body Mass Index 23.0 Labs 08/10/24 16:23 Imaging Radiology Impressions: ITS Impressions Brain MRI 08/10/24 18:37 IMPRESSION: Mild to moderate chronic white matter microangiopathy, more so in the sarah. Generalized brain parenchymal volume loss which is more significant in the mesial temporal lobes. No acute process. Baseline volumetric measurements support a diagnosis of primary Alzheimer's dementia. Electronically signed by: Yohannes Jean-Baptiste MD 08/12/2024 09:07 AM EDT RP Medications Medications Current Medications Acetaminophen (Acetaminophen 325 Mg Tablet) 650 mg PO Q6H PRN PRN Reason: Headache/Pain Mild Scale (1-3) Last Admin: 08/18/24 20:54 Dose: 650 mg Al Hydroxide/Mg Hydroxide (Magnesium Hydrox/Alum Hydrox 30 Ml Oral.Susp) 30 ml PO Q6H PRN PRN Reason: Heartburn/Nausea Diltiazem HCl (Diltiazem Hcl Cd 180 Mg Cap.Er.24h) 180 mg PO DAILY [facility]; Protocol Last Admin: 08/28/24 09:56 Dose: 180 mg Donepezil HCl (Donepezil Hcl 10 Mg Tablet) 10 mg PO BEDTIME [facility] Last Admin: 08/28/24 20:31 Dose: 10 mg Hydroxyzine HCl (Hydroxyzine Hcl 25 Mg Tablet) 25 mg PO Q6H PRN PRN Reason: Anxiety Last Admin: 08/28/24 20:31 Dose: 25 mg Levothyroxine Sodium (Levothyroxine Sodium 25 Mcg Tablet) 25 mcg PO DAILY@0630 [facility] Last Admin: 08/29/24 05:57 Dose: 25 mcg Losartan Potassium (Losartan Potassium 25 Mg Tablet) 25 mg PO BID [facility]; Protocol Last Admin: 08/28/24 20:31 Dose: 25 mg Magnesium Hydroxide (Milk Of Magnesia 30 Ml Oral.Susp) 30 ml PO DAILY PRN PRN Reason: Constipation Multivitamins/Vitamin C (Multivitamin Tablet) 1 tab PO DAILY [facility] Last Admin: 08/28/24 09:56 Dose: 1 tab Nicotine Polacrilex (Nicotine Polacrilex 2 Mg Gum) 4 mg BUCCAL Q2H PRN PRN Reason: Nicotine Cravings Potassium Chloride (Potassium Chloride Er 20 Meq Tab.Er.Prt) 20 meq PO DAILY [facility] Last Admin: 08/28/24 09:56 Dose: 20 meq Quetiapine Fumarate (Quetiapine Fumarate 100 Mg Tablet) 100 mg PO BEDTIME [facility] Last Admin: 08/28/24 20:31 Dose: 100 mg Risperidone (Risperidone 1 Mg Tablet) 1 mg PO BID [facility] Last Admin: 08/28/24 20:31 Dose: 1 mg Thiamine HCl (Thiamine Hcl 100 Mg Tablet) 100 mg PO DAILY [facility] Last Admin: 08/28/24 09:56 Dose: 100 mg Trazodone HCl (Trazodone Hcl 50 Mg Tablet) 50 mg PO BEDTIME MRX1 PRN PRN Reason: Insomnia Last Admin: 08/28/24 21:41 Dose: 50 mg Allergies Allergies Allergy/AdvReac Type Severity Reaction Status Date / Time No Known Allergies Allergy Verified 08/09/24 23:21 Assessment & Plan Assessment & Plan (1) Dementia associated with alcoholism with behavioral disturbance: Status: Acute Code(s): F10.27 - Alcohol dependence with alcohol-induced persisting dementia (2) 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 Walsh is a 73 year-old woman who was brought on a sect 12a to [facility] due to pt shouting on the streets and unsafe behaviors (no description of these behaviors). Pt was medically admitted for HTN and hypokalemia. She has been noted not to be oriented to situation, place thinking she was in he hospital for physical exam. She does have some degree of paranoid ideas. She also noted to have severe anterograde amnesia with other cognitive functions like language more intact which most related pattern to alcohol related dementia, although mixed etiology can't be ruled out. PLAN 1. admit to S1, sect 12b, 5 minutes checks 2. invoked HCP- pt does not have capacity to make medical decisions 3. start risperidone for paranoia s/s to dementia, will start aricept as well. 4. order MRI 5. aftercare planning. 08/22- continue tx. 08/23 continue tx. 08/24 increase aricept 10mg po qhs. 08/25 continue tx. 08/26 continue tx. 08/27/ CTP 08/29 continue tx. Reason for continued inpatient stay Substantial Risk for: inability to function Time Spent With Patient Time: Total time managing care of this patient today ____ minutes.
[2024-08-29 10:38] VITALS: BP 164/67; PULSE 82; RESP 16; TEMP 36.8; O2SAT 96
[2024-08-29] MEDS: Losartan Potassium 25 MG TABLET PO ×2 (10:38→20:11)
[2024-08-29] MEDS: Multivitamin TABLET 1 TAB PO (10:39)
[2024-08-29] MEDS: risperiDONE 1 MG TABLET PO ×2 (10:40→20:11)
[2024-08-29] MEDS: dilTIAZem HCL CD 180 MG CAP.ER.24H PO (10:40)
[2024-08-29] MEDS: Potassium Chloride ER 20 MEQ TAB.ER.PRT PO (10:40)
[2024-08-29] MEDS: Thiamine HCL 100 MG TABLET PO (10:40)
[2024-08-29 20:00] VITALS: BP 128/61; PULSE 83; RESP 18; TEMP 36.4; O2SAT 94
[2024-08-29] MEDS: hydrOXYzine HCL 25 MG TABLET PO (20:11)
[2024-08-29] MEDS: Donepezil HCl 10 MG TABLET PO (20:11)
[2024-08-29] MEDS: QUEtiapine Fumarate 100 MG TABLET PO (20:11)
[2024-08-29] MEDS: traZODone HCL 50 MG TABLET PO (20:11)
[2024-08-30] MEDS: Levothyroxine Sodium 25 MCG TABLET PO (05:54)
--- NOTE | 2024-08-30 07:31 | P.PNPSI_ITS ---
Subjective Subjective Date of Service: 08/30/24 Reason For Visit: Depression, unspecified Subjective Notes: Conditional Voluntary Healthcare Proxy: Yes Interim History: Pt slept through the night. She is visible on the unit, social with peers. No aggression. Pt met with son in law, meeting went well in terms of pt accepting to go to [facility], [facility]. She presents with brighter affect. social with peers. Review of Systems Review of Systems Pt denies any acute medical complaints Yes all other systems are reviewed and are negative Mental Status Exam Mental Status Exam Narrative: Appearance: wearing casual clothing, good hygiene, in NAD Behavior: cooperative Psychomotor: no agitation or retardation noted Speech: clear, hyperverbal at times, not pressured, spontaneous TP: tangential, at times derailed. confabulation TC: liking it here, very relaxing Mood: good Affect: congruent, smiling SI: denies HI: denies VH/AH: none Delusions: there is some paranoid ideas Insight/judgment: impaired x 2. Memory/cog: alert,not oriented to place, month, day, date, severe anterograde amnesia. No signsnificant language impairment noted but pending more formal assessment. Diagnostics Vital Signs (24Hr): Vital Signs - 24 hr 08/29/24 10:38 08/29/24 20:00 Temperature 98.3 F 97.5 F Pulse Rate 82 83 Respiratory Rate 16 18 Blood Pressure 164/67 H 128/61 Pulse Oximetry 96 94 Oxygen Delivery Method Room Air Room Air BMI result Body Mass Index 23.0 Labs 08/10/24 16:23 Imaging Radiology Impressions: ITS Impressions Brain MRI 08/10/24 18:37 IMPRESSION: Mild to moderate chronic white matter microangiopathy, more so in the sarah. Generalized brain parenchymal volume loss which is more significant in the mesial temporal lobes. No acute process. Baseline volumetric measurements support a diagnosis of primary Alzheimer's dementia. Electronically signed by: Yohannes Jean-Baptiste MD 08/12/2024 09:07 AM EDT Medications Medications Current Medications Acetaminophen (Acetaminophen 325 Mg Tablet) 650 mg PO Q6H PRN PRN Reason: Headache/Pain Mild Scale (1-3) Last Admin: 08/18/24 20:54 Dose: 650 mg Al Hydroxide/Mg Hydroxide (Magnesium Hydrox/Alum Hydrox 30 Ml Oral.Susp) 30 ml PO Q6H PRN PRN Reason: Heartburn/Nausea Diltiazem HCl (Diltiazem Hcl Cd 180 Mg Cap.Er.24h) 180 mg PO DAILY [facility]; Protocol Last Admin: 08/29/24 10:40 Dose: 180 mg Donepezil HCl (Donepezil Hcl 10 Mg Tablet) 10 mg PO BEDTIME [facility] Last Admin: 08/29/24 20:11 Dose: 10 mg Hydroxyzine HCl (Hydroxyzine Hcl 25 Mg Tablet) 25 mg PO Q6H PRN PRN Reason: Anxiety Last Admin: 08/29/24 20:11 Dose: 25 mg Levothyroxine Sodium (Levothyroxine Sodium 25 Mcg Tablet) 25 mcg PO DAILY@0630 [facility] Last Admin: 08/30/24 05:54 Dose: 25 mcg Losartan Potassium (Losartan Potassium 25 Mg Tablet) 25 mg PO BID [facility]; Protocol Last Admin: 08/29/24 20:11 Dose: 25 mg Magnesium Hydroxide (Milk Of Magnesia 30 Ml Oral.Susp) 30 ml PO DAILY PRN PRN Reason: Constipation Multivitamins/Vitamin C (Multivitamin Tablet) 1 tab PO DAILY [facility] Last Admin: 08/29/24 10:39 Dose: 1 tab Nicotine Polacrilex (Nicotine Polacrilex 2 Mg Gum) 4 mg BUCCAL Q2H PRN PRN Reason: Nicotine Cravings Potassium Chloride (Potassium Chloride Er 20 Meq Tab.Er.Prt) 20 meq PO DAILY [facility] Last Admin: 08/29/24 10:40 Dose: 20 meq Quetiapine Fumarate (Quetiapine Fumarate 100 Mg Tablet) 100 mg PO BEDTIME [facility] Last Admin: 08/29/24 20:11 Dose: 100 mg Risperidone (Risperidone 1 Mg Tablet) 1 mg PO BID [facility] Last Admin: 08/29/24 20:11 Dose: 1 mg Thiamine HCl (Thiamine Hcl 100 Mg Tablet) 100 mg PO DAILY [facility] Last Admin: 08/29/24 10:40 Dose: 100 mg Trazodone HCl (Trazodone Hcl 50 Mg Tablet) 50 mg PO BEDTIME MRX1 PRN PRN Reason: Insomnia Last Admin: 08/29/24 20:11 Dose: 50 mg Allergies Allergies Allergy/AdvReac Type Severity Reaction Status Date / Time No Known Allergies Allergy Verified 08/09/24 23:21 Assessment & Plan Assessment & Plan (1) Dementia associated with alcoholism with behavioral disturbance: Status: Acute Code(s): F10.27 - Alcohol dependence with alcohol-induced persisting dementia (2) 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 Walsh is a 73 year-old woman who was brought on a sect 12a to [facility] due to pt shouting on the streets and unsafe behaviors (no description of these behaviors). Pt was medically admitted for HTN and hypokalemia. She has been noted not to be oriented to situation, place thinking she was in he hospital for physical exam. She does have some degree of paranoid ideas. She also noted to have severe anterograde amnesia with other cognitive functions like language more intact which most related pattern to alcohol related dementia, although mixed etiology can't be ruled out. PLAN 1. admit to S1, sect 12b, 5 minutes checks 2. invoked HCP- pt does not have capacity to make medical decisions 3. start risperidone for paranoia s/s to dementia, will start aricept as well. 4. order MRI 5. aftercare planning. 08/22- continue tx. 08/23 continue tx. 08/24 increase aricept 10mg po qhs. 08/25 continue tx. 08/26 continue tx. 08/27/ CTP 08/29 continue tx. 08/30 continue tx. Reason for continued inpatient stay Substantial Risk for: inability to function Time Spent With Patient Time: Total time managing care of this patient today ____ minutes.
[2024-08-30 08:16] VITALS: BP 146/69; PULSE 76; RESP 18; TEMP 36.1; O2SAT 96
[2024-08-30] MEDS: dilTIAZem HCL CD 180 MG CAP.ER.24H PO (08:21)
[2024-08-30] MEDS: Potassium Chloride ER 20 MEQ TAB.ER.PRT PO (08:21)
[2024-08-30] MEDS: Losartan Potassium 25 MG TABLET PO ×2 (08:22→21:19)
[2024-08-30] MEDS: Multivitamin TABLET 1 TAB PO (08:22)
[2024-08-30] MEDS: Thiamine HCL 100 MG TABLET PO (08:22)
[2024-08-30] MEDS: risperiDONE 1 MG TABLET PO ×2 (08:22→21:21)
[2024-08-30] MEDS: Acetaminophen 325 MG TABLET 650 MG PO (17:52)
[2024-08-30 20:00] VITALS: BP 124/60; PULSE 85; RESP 18; TEMP 36.5; O2SAT 98
[2024-08-30 21:19] VITALS: BP 124/60
[2024-08-30] MEDS: traZODone HCL 50 MG TABLET PO (21:20)
[2024-08-30] MEDS: Donepezil HCl 10 MG TABLET PO (21:20)
[2024-08-30] MEDS: QUEtiapine Fumarate 100 MG TABLET PO (21:20)
[2024-08-30] MEDS: hydrOXYzine HCL 25 MG TABLET PO (21:21)
[2024-08-31] MEDS: Levothyroxine Sodium 25 MCG TABLET PO (06:26)
[2024-08-31 07:50] VITALS: BP 157/67; PULSE 70; RESP 18; TEMP 35.9; O2SAT 98
[2024-08-31] MEDS: dilTIAZem HCL CD 180 MG CAP.ER.24H PO (08:32)
[2024-08-31] MEDS: Potassium Chloride ER 20 MEQ TAB.ER.PRT PO (08:32)
[2024-08-31] MEDS: Thiamine HCL 100 MG TABLET PO (08:33)
[2024-08-31] MEDS: risperiDONE 1 MG TABLET PO ×2 (08:33→20:56)
[2024-08-31] MEDS: Multivitamin TABLET 1 TAB PO (08:33)
[2024-08-31] MEDS: Losartan Potassium 25 MG TABLET PO ×2 (08:33→20:55)
--- NOTE | 2024-08-31 16:41 | P.PNPSI_ITS ---
Subjective Subjective Date of Service: 08/31/24 Reason For Visit: Depression, unspecified Subjective Notes: Conditional Voluntary Healthcare Proxy: Yes Interim History: Pt slept through the night. She is visible on the unit, social with peers. No aggression. She is pleasant on approach, slightly dysphoric, optimistic about going to [facility], although short term memory is very poor and so it wouldn't be surprising that she later asks to go home. Review of Systems Review of Systems Pt denies any acute medical complaints Yes all other systems are reviewed and are negative Mental Status Exam Mental Status Exam Narrative: Appearance: wearing casual clothing, good hygiene, in NAD Behavior: cooperative Psychomotor: no agitation or retardation noted Speech: clear, hyperverbal at times, not pressured, spontaneous TP: tangential, at times derailed. confabulation TC: liking it here, very relaxing Mood: good Affect: congruent, smiling SI: denies HI: denies VH/AH: none Delusions: there is some paranoid ideas Insight/judgment: impaired x 2. Memory/cog: alert,not oriented to place, month, day, date, severe anterograde amnesia. No signsnificant language impairment noted but pending more formal assessment. Diagnostics Vital Signs (24Hr): Vital Signs - 24 hr 08/30/24 20:00 08/30/24 21:19 08/31/24 07:50 Temperature 97.7 F 96.6 F L Pulse Rate 85 70 Respiratory Rate 18 18 Blood Pressure 124/60 124/60 157/67 H Pulse Oximetry 98 98 Oxygen Delivery Method Room Air Room Air BMI result Body Mass Index 23.0 Labs 08/10/24 16:23 Imaging Radiology Impressions: ITS Impressions Brain MRI 08/10/24 18:37 IMPRESSION: Mild to moderate chronic white matter microangiopathy, more so in the sarah. Generalized brain parenchymal volume loss which is more significant in the mesial temporal lobes. No acute process. Baseline volumetric measurements support a diagnosis of primary Alzheimer's dementia. Electronically signed by: Yohannes Jean-Baptiste MD 08/12/2024 09:07 AM EDT Medications Medications Current Medications Acetaminophen (Acetaminophen 325 Mg Tablet) 650 mg PO Q6H PRN PRN Reason: Headache/Pain Mild Scale (1-3) Last Admin: 08/30/24 17:52 Dose: 650 mg Al Hydroxide/Mg Hydroxide (Magnesium Hydrox/Alum Hydrox 30 Ml Oral.Susp) 30 ml PO Q6H PRN PRN Reason: Heartburn/Nausea Diltiazem HCl (Diltiazem Hcl Cd 180 Mg Cap.Er.24h) 180 mg PO DAILY [facility]; Protocol Last Admin: 08/31/24 08:32 Dose: 180 mg Donepezil HCl (Donepezil Hcl 10 Mg Tablet) 10 mg PO BEDTIME [facility] Last Admin: 08/30/24 21:20 Dose: 10 mg Hydroxyzine HCl (Hydroxyzine Hcl 25 Mg Tablet) 25 mg PO Q6H PRN PRN Reason: Anxiety Last Admin: 08/30/24 21:21 Dose: 25 mg Levothyroxine Sodium (Levothyroxine Sodium 25 Mcg Tablet) 25 mcg PO DAILY@0630 [facility] Last Admin: 08/31/24 06:26 Dose: 25 mcg Losartan Potassium (Losartan Potassium 25 Mg Tablet) 25 mg PO BID [facility]; Protocol Last Admin: 08/31/24 08:33 Dose: 25 mg Magnesium Hydroxide (Milk Of Magnesia 30 Ml Oral.Susp) 30 ml PO DAILY PRN PRN Reason: Constipation Multivitamins/Vitamin C (Multivitamin Tablet) 1 tab PO DAILY [facility] Last Admin: 08/31/24 08:33 Dose: 1 tab Nicotine Polacrilex (Nicotine Polacrilex 2 Mg Gum) 4 mg BUCCAL Q2H PRN PRN Reason: Nicotine Cravings Potassium Chloride (Potassium Chloride Er 20 Meq Tab.Er.Prt) 20 meq PO DAILY [facility] Last Admin: 08/31/24 08:32 Dose: 20 meq Quetiapine Fumarate (Quetiapine Fumarate 100 Mg Tablet) 100 mg PO BEDTIME [facility] Last Admin: 08/30/24 21:20 Dose: 100 mg Risperidone (Risperidone 1 Mg Tablet) 1 mg PO BID [facility] Last Admin: 08/31/24 08:33 Dose: 1 mg Thiamine HCl (Thiamine Hcl 100 Mg Tablet) 100 mg PO DAILY [facility] Last Admin: 08/31/24 08:33 Dose: 100 mg Trazodone HCl (Trazodone Hcl 50 Mg Tablet) 50 mg PO BEDTIME MRX1 PRN PRN Reason: Insomnia Last Admin: 08/30/24 21:20 Dose: 50 mg Allergies Allergies Allergy/AdvReac Type Severity Reaction Status Date / Time No Known Allergies Allergy Verified 09/17/24 23:21 Assessment & Plan Assessment & Plan (1) Dementia associated with alcoholism with behavioral disturbance: Status: Acute Code(s): F10.27 - Alcohol dependence with alcohol-induced persisting dementia (2) 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 Walsh is a 73 year-old woman who was brought on a sect 12a to [facility] due to pt shouting on the streets and unsafe behaviors (no description of these behaviors). Pt was medically admitted for HTN and hypokalemia. She has been noted not to be oriented to situation, place thinking she was in he hospital for physical exam. She does have some degree of paranoid ideas. She also noted to have severe anterograde amnesia with other cognitive functions like language more intact which most related pattern to alcohol related dementia, although mixed etiology can't be ruled out. PLAN 1. admit to S1, sect 12b, 5 minutes checks 2. invoked HCP- pt does not have capacity to make medical decisions 3. start risperidone for paranoia s/s to dementia, will start aricept as well. 4. order MRI 5. aftercare planning. 08/22- continue tx. 08/23 continue tx. 08/24 increase aricept 10mg po qhs. 08/25 continue tx. 08/26 continue tx. 08/27/ CTP 08/29 continue tx. 08/30 continue tx. 08/31 continue tx. Reason for continued inpatient stay Substantial Risk for: inability to function Time Spent With Patient Time: Total time managing care of this patient today ____ minutes.
[2024-08-31 20:00] VITALS: BP 149/67; PULSE 91; RESP 16; TEMP 36.6; O2SAT 96
[2024-08-31 20:55] VITALS: BP 149/67
[2024-08-31] MEDS: hydrOXYzine HCL 25 MG TABLET PO (20:56)
[2024-08-31] MEDS: traZODone HCL 50 MG TABLET PO (20:56)
[2024-08-31] MEDS: Donepezil HCl 10 MG TABLET PO (20:57)
[2024-08-31] MEDS: QUEtiapine Fumarate 100 MG TABLET PO (20:57)
[2024-09-01] MEDS: Levothyroxine Sodium 25 MCG TABLET PO (06:32)
[2024-09-01 07:00] VITALS: BMI 23.6
[2024-09-01 07:55] VITALS: BP 166/72; PULSE 75; RESP 16; TEMP 36.2; O2SAT 97
[2024-09-01] MEDS: Potassium Chloride ER 20 MEQ TAB.ER.PRT PO (08:16)
[2024-09-01] MEDS: dilTIAZem HCL CD 180 MG CAP.ER.24H PO (08:16)
[2024-09-01] MEDS: Multivitamin TABLET 1 TAB PO (08:16)
[2024-09-01] MEDS: Losartan Potassium 25 MG TABLET PO ×2 (08:16→21:25)
[2024-09-01] MEDS: risperiDONE 1 MG TABLET PO ×2 (08:16→21:26)
[2024-09-01] MEDS: Thiamine HCL 100 MG TABLET PO (08:16)
--- NOTE | 2024-09-01 18:33 | HO.PSYCHPN ---
Subjective Subjective Date of Service: 09/01/24 Reason For Visit: Depression, unspecified Subjective Notes: Conditional Voluntary Healthcare Proxy: Yes Interim History: Pt slept through the night. She is visible on the unit, social with peers. She was somewhat upset this morning stating that she came here because an advertisement on the news that said that there were many activities for seniors and she is disappointed that there is not much programing. She is sleeping through the night. No behavioral concerns. Review of Systems Review of Systems Pt denies any acute medical complaints Yes all other systems are reviewed and are negative Mental Status Exam Mental Status Exam Narrative: Appearance: wearing casual clothing, good hygiene, in NAD Behavior: cooperative Psychomotor: no agitation or retardation noted Speech: clear, hyperverbal at times, not pressured, spontaneous TP: tangential, at times derailed. confabulation TC: liking it here, very relaxing Mood: good Affect: congruent, smiling SI: denies HI: denies VH/AH: none Delusions: there is some paranoid ideas Insight/judgment: impaired x 2. Memory/cog: alert,not oriented to place, month, day, date, severe anterograde amnesia. No signsnificant language impairment noted but pending more formal assessment. Diagnostics Vital Signs (24Hr): Vital Signs - 24 hr 08/31/24 20:00 08/31/24 20:55 09/01/24 07:55 Temperature 98 F 97.2 F Pulse Rate 91 75 Respiratory Rate 16 16 Blood Pressure 149/67 H 149/67 H 166/72 H Pulse Oximetry 96 97 Oxygen Delivery Method Room Air Room Air BMI result Body Mass Index 23.6 Labs 08/10/24 16:23 Imaging Radiology Impressions: ITS Impressions Brain MRI 08/10/24 18:37 IMPRESSION: Mild to moderate chronic white matter microangiopathy, more so in the sarah. Generalized brain parenchymal volume loss which is more significant in the mesial temporal lobes. No acute process. Baseline volumetric measurements support a diagnosis of primary Alzheimer's dementia. Electronically signed by: Yohannes Jean-Baptiste MD 08/12/2024 09:07 AM EDT Medications Medications Current Medications Acetaminophen (Acetaminophen 325 Mg Tablet) 650 mg PO Q6H PRN PRN Reason: Headache/Pain Mild Scale (1-3) Last Admin: 08/30/24 17:52 Dose: 650 mg Al Hydroxide/Mg Hydroxide (Magnesium Hydrox/Alum Hydrox 30 Ml Oral.Susp) 30 ml PO Q6H PRN PRN Reason: Heartburn/Nausea Diltiazem HCl (Diltiazem Hcl Cd 180 Mg Cap.Er.24h) 180 mg PO DAILY [facility]; Protocol Last Admin: 09/01/24 08:16 Dose: 180 mg Donepezil HCl (Donepezil Hcl 10 Mg Tablet) 10 mg PO BEDTIME [facility] Last Admin: 08/31/24 20:57 Dose: 10 mg Hydroxyzine HCl (Hydroxyzine Hcl 25 Mg Tablet) 25 mg PO Q6H PRN PRN Reason: Anxiety Last Admin: 08/31/24 20:56 Dose: 25 mg Levothyroxine Sodium (Levothyroxine Sodium 25 Mcg Tablet) 25 mcg PO DAILY@0630 [facility] Last Admin: 09/01/24 06:32 Dose: 25 mcg Losartan Potassium (Losartan Potassium 25 Mg Tablet) 25 mg PO BID [facility]; Protocol Last Admin: 09/01/24 08:16 Dose: 25 mg Magnesium Hydroxide (Milk Of Magnesia 30 Ml Oral.Susp) 30 ml PO DAILY PRN PRN Reason: Constipation Multivitamins/Vitamin C (Multivitamin Tablet) 1 tab PO DAILY [facility] Last Admin: 09/01/24 08:16 Dose: 1 tab Nicotine Polacrilex (Nicotine Polacrilex 2 Mg Gum) 4 mg BUCCAL Q2H PRN PRN Reason: Nicotine Cravings Potassium Chloride (Potassium Chloride Er 20 Meq Tab.Er.Prt) 20 meq PO DAILY [facility] Last Admin: 09/01/24 08:16 Dose: 20 meq Quetiapine Fumarate (Quetiapine Fumarate 100 Mg Tablet) 100 mg PO BEDTIME [facility] Last Admin: 08/31/24 20:57 Dose: 100 mg Risperidone (Risperidone 1 Mg Tablet) 1 mg PO BID [facility] Last Admin: 09/01/24 08:16 Dose: 1 mg Thiamine HCl (Thiamine Hcl 100 Mg Tablet) 100 mg PO DAILY [facility] Last Admin: 09/01/24 08:16 Dose: 100 mg Trazodone HCl (Trazodone Hcl 50 Mg Tablet) 50 mg PO BEDTIME MRX1 PRN PRN Reason: Insomnia Last Admin: 08/31/24 20:56 Dose: 50 mg Allergies Allergies Allergy/AdvReac Type Severity Reaction Status Date / Time No Known Allergies Allergy Verified 08/09/24 23:21 Assessment & Plan Assessment & Plan (1) Dementia associated with alcoholism with behavioral disturbance: Status: Acute Code(s): F10.27 - Alcohol dependence with alcohol-induced persisting dementia (2) 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 Walsh is a 73 year-old woman who was brought on a sect 12a to [facility] due to pt shouting on the streets and unsafe behaviors (no description of these behaviors). Pt was medically admitted for HTN and hypokalemia. She has been noted not to be oriented to situation, place thinking she was in he hospital for physical exam. She does have some degree of paranoid ideas. She also noted to have severe anterograde amnesia with other cognitive functions like language more intact which most related pattern to alcohol related dementia, although mixed etiology can't be ruled out. PLAN 1. admit to S1, sect 12b, 5 minutes checks 2. invoked HCP- pt does not have capacity to make medical decisions 3. start risperidone for paranoia s/s to dementia, will start aricept as well. 4. order MRI 5. aftercare planning. 08/22- continue tx. 08/23 continue tx. 08/24 increase aricept 10mg po qhs. 08/25 continue tx. 08/26 continue tx. 08/27/ CTP 08/29 continue tx. 08/30 continue tx. 08/31 continue tx. 09/01 continue tx. Reason for continued inpatient stay Substantial Risk for: inability to function Time Spent With Patient Time: Total time managing care of this patient today ____ minutes.
[2024-09-01 20:00] VITALS: BP 159/70; PULSE 80; RESP 16; TEMP 36.4; O2SAT 98
[2024-09-01] MEDS: traZODone HCL 50 MG TABLET PO (21:24)
[2024-09-01 21:25] VITALS: BP 159/70
[2024-09-01] MEDS: QUEtiapine Fumarate 100 MG TABLET PO (21:25)
[2024-09-01] MEDS: hydrOXYzine HCL 25 MG TABLET PO (21:25)
[2024-09-01] MEDS: Donepezil HCl 10 MG TABLET PO (21:26)
[2024-09-02] MEDS: Levothyroxine Sodium 25 MCG TABLET PO (06:36)
[2024-09-02 08:00] VITALS: BP 135/65; PULSE 81; RESP 14; TEMP 36.4; O2SAT 97
[2024-09-02 09:16] VITALS: BP 135/65; PULSE 78
[2024-09-02] MEDS: dilTIAZem HCL CD 180 MG CAP.ER.24H PO (09:16)
[2024-09-02] MEDS: Multivitamin TABLET 1 TAB PO (09:17)
[2024-09-02] MEDS: Potassium Chloride ER 20 MEQ TAB.ER.PRT PO (09:17)
[2024-09-02] MEDS: risperiDONE 1 MG TABLET PO ×2 (09:18→20:27)
[2024-09-02] MEDS: Thiamine HCL 100 MG TABLET PO (09:18)
[2024-09-02] MEDS: Losartan Potassium 25 MG TABLET PO ×2 (09:18→20:28)
--- NOTE | 2024-09-02 09:34 | P.PNPSI_ITS ---
Subjective Subjective Date of Service: 09/02/24 Reason For Visit: Depression, unspecified Subjective Notes: Conditional Voluntary Interim History: Pt slept through the night. She is visible on the unit, social with peers. She is pleasant, social with peers. No SI/HI. No aggression. She is eating well. plan for dc next week. Review of Systems Review of Systems Pt denies any acute medical complaints Yes all other systems are reviewed and are negative Mental Status Exam Mental Status Exam Narrative: Appearance: wearing casual clothing, good hygiene, in NAD Behavior: cooperative Psychomotor: no agitation or retardation noted Speech: clear, verbose, not pressured, spontaneous TP: tangential, at times derailed. confabulation TC: hoping to go on vacation soon Mood: good Affect: congruent, smiling SI: denies HI: denies VH/AH: none Delusions: there is some paranoid ideas Insight/judgment: impaired x 2. Memory/cog: alert,not oriented to place, month, day, date, severe anterograde amnesia. No signsnificant language impairment noted but pending more formal assessment. Diagnostics Vital Signs (24Hr): Vital Signs - 24 hr 09/01/24 20:00 09/01/24 21:25 09/02/24 08:00 Temperature 97.6 F 97.5 F Pulse Rate 80 81 Respiratory Rate 16 14 Blood Pressure 159/70 H 159/70 H 135/65 Pulse Oximetry 98 97 Oxygen Delivery Method Room Air Room Air 09/02/24 09:16 Temperature Pulse Rate 78 Respiratory Rate Blood Pressure 135/65 Pulse Oximetry Oxygen Delivery Method BMI result Body Mass Index 23.6 Labs 08/10/24 16:23 Imaging Radiology Impressions: ITS Impressions Brain MRI 08/10/24 18:37 IMPRESSION: Mild to moderate chronic white matter microangiopathy, more so in the sarah. Generalized brain parenchymal volume loss which is more significant in the mesial temporal lobes. No acute process. Baseline volumetric measurements support a diagnosis of primary Alzheimer's dementia. Electronically signed by: Yohannes Jean-Baptiste MD 08/12/2024 09:07 AM EDT Medications Medications Current Medications Acetaminophen (Acetaminophen 325 Mg Tablet) 650 mg PO Q6H PRN PRN Reason: Headache/Pain Mild Scale (1-3) Last Admin: 08/30/24 17:52 Dose: 650 mg Al Hydroxide/Mg Hydroxide (Magnesium Hydrox/Alum Hydrox 30 Ml Oral.Susp) 30 ml PO Q6H PRN PRN Reason: Heartburn/Nausea Diltiazem HCl (Diltiazem Hcl Cd 180 Mg Cap.Er.24h) 180 mg PO DAILY [facility]; Protocol Last Admin: 09/02/24 09:16 Dose: 180 mg Donepezil HCl (Donepezil Hcl 10 Mg Tablet) 10 mg PO BEDTIME [facility] Last Admin: 09/01/24 21:26 Dose: 10 mg Hydroxyzine HCl (Hydroxyzine Hcl 25 Mg Tablet) 25 mg PO Q6H PRN PRN Reason: Anxiety Last Admin: 09/01/24 21:25 Dose: 25 mg Levothyroxine Sodium (Levothyroxine Sodium 25 Mcg Tablet) 25 mcg PO DAILY@0630 [facility] Last Admin: 09/02/24 06:36 Dose: 25 mcg Losartan Potassium (Losartan Potassium 25 Mg Tablet) 25 mg PO BID [facility]; Protocol Last Admin: 09/02/24 09:18 Dose: 25 mg Magnesium Hydroxide (Milk Of Magnesia 30 Ml Oral.Susp) 30 ml PO DAILY PRN PRN Reason: Constipation Multivitamins/Vitamin C (Multivitamin Tablet) 1 tab PO DAILY [facility] Last Admin: 09/02/24 09:17 Dose: 1 tab Nicotine Polacrilex (Nicotine Polacrilex 2 Mg Gum) 4 mg BUCCAL Q2H PRN PRN Reason: Nicotine Cravings Potassium Chloride (Potassium Chloride Er 20 Meq Tab.Er.Prt) 20 meq PO DAILY [facility] Last Admin: 09/02/24 09:17 Dose: 20 meq Quetiapine Fumarate (Quetiapine Fumarate 100 Mg Tablet) 100 mg PO BEDTIME [facility] Last Admin: 09/01/24 21:25 Dose: 100 mg Risperidone (Risperidone 1 Mg Tablet) 1 mg PO BID [facility] Last Admin: 09/02/24 09:18 Dose: 1 mg Thiamine HCl (Thiamine Hcl 100 Mg Tablet) 100 mg PO DAILY [facility] Last Admin: 09/02/24 09:18 Dose: 100 mg Trazodone HCl (Trazodone Hcl 50 Mg Tablet) 50 mg PO BEDTIME MRX1 PRN PRN Reason: Insomnia Last Admin: 09/01/24 21:24 Dose: 50 mg Allergies Allergies Allergy/AdvReac Type Severity Reaction Status Date / Time No Known Allergies Allergy Verified 09/17/24 23:21 Assessment & Plan Assessment & Plan (1) Dementia associated with alcoholism with behavioral disturbance: Status: Acute Code(s): F10.27 - Alcohol dependence with alcohol-induced persisting dementia (2) 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 Walsh is a 73 year-old woman who was brought on a sect 12a to [facility] due to pt shouting on the streets and unsafe behaviors (no description of these behaviors). Pt was medically admitted for HTN and hypokalemia. She has been noted not to be oriented to situation, place thinking she was in he hospital for physical exam. She does have some degree of paranoid ideas. She also noted to have severe anterograde amnesia with other cognitive functions like language more intact which most related pattern to alcohol related dementia, although mixed etiology can't be ruled out. PLAN 1. admit to S1, sect 12b, 5 minutes checks 2. invoked HCP- pt does not have capacity to make medical decisions 3. start risperidone for paranoia s/s to dementia, will start aricept as well. 4. order MRI 5. aftercare planning. 08/22- continue tx. 08/23 continue tx. 08/24 increase aricept 10mg po qhs. 08/25 continue tx. 08/26 continue tx. 08/27/ CTP 08/29 continue tx. 08/30 continue tx. 08/31 continue tx. 09/01 continue tx. 09/02 continue tx. Reason for continued inpatient stay Substantial Risk for: inability to function Time Spent With Patient Time: Total time managing care of this patient today ____ minutes.
[2024-09-02 20:00] VITALS: BP 135/64; PULSE 84; RESP 16; TEMP 35.7; O2SAT 96
[2024-09-02] MEDS: hydrOXYzine HCL 25 MG TABLET PO (20:26)
[2024-09-02] MEDS: QUEtiapine Fumarate 100 MG TABLET PO (20:27)
[2024-09-02] MEDS: Donepezil HCl 10 MG TABLET PO (20:27)
[2024-09-02] MEDS: traZODone HCL 50 MG TABLET PO (20:27)
[2024-09-02 20:28] VITALS: BP 135/64
[2024-09-03] MEDS: Levothyroxine Sodium 25 MCG TABLET PO (06:12)
[2024-09-03 09:27] VITALS: BP 120/70; PULSE 84; RESP 18; TEMP 36.1; O2SAT 96
[2024-09-03] MEDS: Potassium Chloride ER 20 MEQ TAB.ER.PRT PO (09:28)
[2024-09-03] MEDS: Losartan Potassium 25 MG TABLET PO ×2 (09:29→20:29)
[2024-09-03] MEDS: risperiDONE 1 MG TABLET PO ×2 (09:29→20:31)
[2024-09-03] MEDS: Thiamine HCL 100 MG TABLET PO (09:29)
[2024-09-03] MEDS: dilTIAZem HCL CD 180 MG CAP.ER.24H PO (09:29)
[2024-09-03] MEDS: Multivitamin TABLET 1 TAB PO (09:30)
[2024-09-03 20:00] VITALS: BP 136/64; PULSE 87; RESP 17; TEMP 36.2; O2SAT 97
[2024-09-03] MEDS: Donepezil HCl 10 MG TABLET PO (20:28)
[2024-09-03] MEDS: QUEtiapine Fumarate 100 MG TABLET PO (20:30)
--- NOTE | 2024-09-03 20:41 | HO.PSYCHPN ---
Subjective Subjective Date of Service: 09/03/24 Reason For Visit: Depression, unspecified Interim History: pleasant, positive. looking forward to discharge soon. per staff, slept well, DCing on thursday. likeable, pleasant, social. Mental Status Exam Mental Status Exam Narrative: Appearance: wearing casual clothing, good hygiene, in NAD Behavior: cooperative Psychomotor: no agitation or retardation noted Speech: clear, verbose, not pressured, spontaneous TP: tangential, at times derailed. confabulation TC: hoping to go on vacation soon Mood: good Affect: congruent, smiling SI: denies HI: denies VH/AH: none Delusions: there is some paranoid ideas Insight/judgment: impaired x 2. Memory/cog: alert,not oriented to place, month, day, date, severe anterograde amnesia. No signsnificant language impairment noted but pending more formal assessment. Diagnostics Vital Signs (24Hr): Vital Signs - 24 hr 09/03/24 09:27 Temperature 96.9 F Pulse Rate 84 Respiratory Rate 18 Blood Pressure 120/70 Pulse Oximetry 96 Oxygen Delivery Method Room Air BMI result Body Mass Index 23.6 Labs 08/10/24 16:23 Imaging Radiology Impressions: ITS Impressions Brain MRI 08/10/24 18:37 IMPRESSION: Mild to moderate chronic white matter microangiopathy, more so in the sarah. Generalized brain parenchymal volume loss which is more significant in the mesial temporal lobes. No acute process. Baseline volumetric measurements support a diagnosis of primary Alzheimer's dementia. Electronically signed by: Yohannes Jean-Baptiste MD 08/12/2024 09:07 AM EDT Medications Medications Current Medications Acetaminophen (Acetaminophen 325 Mg Tablet) 650 mg PO Q6H PRN PRN Reason: Headache/Pain Mild Scale (1-3) Last Admin: 08/30/24 17:52 Dose: 650 mg Al Hydroxide/Mg Hydroxide (Magnesium Hydrox/Alum Hydrox 30 Ml Oral.Susp) 30 ml PO Q6H PRN PRN Reason: Heartburn/Nausea Diltiazem HCl (Diltiazem Hcl Cd 180 Mg Cap.Er.24h) 180 mg PO DAILY [facility]; Protocol Last Admin: 09/03/24 09:29 Dose: 180 mg Donepezil HCl (Donepezil Hcl 10 Mg Tablet) 10 mg PO BEDTIME [facility] Last Admin: 09/03/24 20:28 Dose: 10 mg Hydroxyzine HCl (Hydroxyzine Hcl 25 Mg Tablet) 25 mg PO Q6H PRN PRN Reason: Anxiety Last Admin: 09/02/24 20:26 Dose: 25 mg Levothyroxine Sodium (Levothyroxine Sodium 25 Mcg Tablet) 25 mcg PO DAILY@0630 [facility] Last Admin: 09/03/24 06:12 Dose: 25 mcg Losartan Potassium (Losartan Potassium 25 Mg Tablet) 25 mg PO BID [facility]; Protocol Last Admin: 09/03/24 20:29 Dose: 25 mg Magnesium Hydroxide (Milk Of Magnesia 30 Ml Oral.Susp) 30 ml PO DAILY PRN PRN Reason: Constipation Multivitamins/Vitamin C (Multivitamin Tablet) 1 tab PO DAILY [facility] Last Admin: 09/03/24 09:30 Dose: 1 tab Nicotine Polacrilex (Nicotine Polacrilex 2 Mg Gum) 4 mg BUCCAL Q2H PRN PRN Reason: Nicotine Cravings Potassium Chloride (Potassium Chloride Er 20 Meq Tab.Er.Prt) 20 meq PO DAILY [facility] Last Admin: 09/03/24 09:28 Dose: 20 meq Quetiapine Fumarate (Quetiapine Fumarate 100 Mg Tablet) 100 mg PO BEDTIME [facility] Last Admin: 09/03/24 20:30 Dose: 100 mg Risperidone (Risperidone 1 Mg Tablet) 1 mg PO BID [facility] Last Admin: 09/03/24 20:31 Dose: 1 mg Thiamine HCl (Thiamine Hcl 100 Mg Tablet) 100 mg PO DAILY [facility] Last Admin: 09/03/24 09:29 Dose: 100 mg Trazodone HCl (Trazodone Hcl 50 Mg Tablet) 50 mg PO BEDTIME MRX1 PRN PRN Reason: Insomnia Last Admin: 09/02/24 20:27 Dose: 50 mg Allergies Allergies Allergy/AdvReac Type Severity Reaction Status Date / Time No Known Allergies Allergy Verified 08/09/24 23:21 Assessment & Plan Assessment & Plan (1) Dementia associated with alcoholism with behavioral disturbance: Status: Acute Code(s): F10.27 - Alcohol dependence with alcohol-induced persisting dementia (2) 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 Walsh is a 73 year-old woman who was brought on a sect 12a to [facility] due to pt shouting on the streets and unsafe behaviors (no description of these behaviors). Pt was medically admitted for HTN and hypokalemia. She has been noted not to be oriented to situation, place thinking she was in he hospital for physical exam. She does have some degree of paranoid ideas. She also noted to have severe anterograde amnesia with other cognitive functions like language more intact which most related pattern to alcohol related dementia, although mixed etiology can't be ruled out. PLAN 1. admit to S1, sect 12b, 5 minutes checks 2. invoked HCP- pt does not have capacity to make medical decisions 3. start risperidone for paranoia s/s to dementia, will start aricept as well. 4. order MRI 5. aftercare planning. 08/22- continue tx. 08/23 continue tx. 08/24 increase aricept 10mg po qhs. 08/25 continue tx. 08/26 continue tx. 08/27/ CTP 08/29 continue tx. 08/30 continue tx. 08/31 continue tx. 09/01 continue tx. 09/02 continue tx. 09/03: stable. continue current mgmt. DC thursday 09/06. Reason for continued inpatient stay Substantial Risk for: inability to function Time Spent With Patient Time: Total time managing care of this patient today ____ minutes.
[2024-09-03] MEDS: traZODone HCL 50 MG TABLET PO ×2 (21:04→23:49)
[2024-09-03] MEDS: hydrOXYzine HCL 25 MG TABLET PO (23:49)
[2024-09-04] MEDS: Levothyroxine Sodium 25 MCG TABLET PO (06:28)
[2024-09-04 08:00] VITALS: BP 120/61; PULSE 62; RESP 16; TEMP 36; O2SAT 97
[2024-09-04] MEDS: Potassium Chloride ER 20 MEQ TAB.ER.PRT PO (08:20)
[2024-09-04] MEDS: risperiDONE 1 MG TABLET PO ×2 (08:20→20:43)
[2024-09-04] MEDS: Losartan Potassium 25 MG TABLET PO ×2 (08:20→20:43)
[2024-09-04] MEDS: Thiamine HCL 100 MG TABLET PO (08:21)
[2024-09-04] MEDS: Multivitamin TABLET 1 TAB PO (08:21)
[2024-09-04] MEDS: dilTIAZem HCL CD 180 MG CAP.ER.24H PO (08:21)
--- NOTE | 2024-09-04 15:17 | HO.PSYCHPN ---
Subjective Subjective Date of Service: 09/04/24 Reason For Visit: Depression, unspecified Interim History: no issues. calm, cooperative, friendly. looking forward to discharge. per staff, no notable events or behaviors. Mental Status Exam Mental Status Exam Narrative: Appearance: wearing casual clothing, good hygiene, in NAD Behavior: cooperative Psychomotor: no agitation or retardation noted Speech: clear, verbose, not pressured, spontaneous TP: tangential, at times derailed. confabulation TC: hoping to go on vacation soon Mood: good Affect: congruent, smiling SI: denies HI: denies VH/AH: none Delusions: there is some paranoid ideas Insight/judgment: impaired x 2. Memory/cog: alert,not oriented to place, month, day, date, severe anterograde amnesia. No signsnificant language impairment noted but pending more formal assessment. Diagnostics Vital Signs (24Hr): Vital Signs - 24 hr 09/03/24 20:00 09/04/24 08:00 Temperature 97.1 F 96.8 F Pulse Rate 87 62 Respiratory Rate 17 16 Blood Pressure 136/64 120/61 Pulse Oximetry 97 97 Oxygen Delivery Method Room Air Room Air BMI result Body Mass Index 23.6 Labs 08/10/24 16:23 Imaging Radiology Impressions: ITS Impressions Brain MRI 08/10/24 18:37 IMPRESSION: Mild to moderate chronic white matter microangiopathy, more so in the sarah. Generalized brain parenchymal volume loss which is more significant in the mesial temporal lobes. No acute process. Baseline volumetric measurements support a diagnosis of primary Alzheimer's dementia. Electronically signed by: Yohannes Jean-Baptiste MD 08/12/2024 09:07 AM EDT Medications Medications Current Medications Acetaminophen (Acetaminophen 325 Mg Tablet) 650 mg PO Q6H PRN PRN Reason: Headache/Pain Mild Scale (1-3) Last Admin: 08/30/24 17:52 Dose: 650 mg Al Hydroxide/Mg Hydroxide (Magnesium Hydrox/Alum Hydrox 30 Ml Oral.Susp) 30 ml PO Q6H PRN PRN Reason: Heartburn/Nausea Diltiazem HCl (Diltiazem Hcl Cd 180 Mg Cap.Er.24h) 180 mg PO DAILY [facility]; Protocol Last Admin: 09/04/24 08:21 Dose: 180 mg Donepezil HCl (Donepezil Hcl 10 Mg Tablet) 10 mg PO BEDTIME [facility] Last Admin: 09/03/24 20:28 Dose: 10 mg Hydroxyzine HCl (Hydroxyzine Hcl 25 Mg Tablet) 25 mg PO Q6H PRN PRN Reason: Anxiety Last Admin: 09/03/24 23:49 Dose: 25 mg Levothyroxine Sodium (Levothyroxine Sodium 25 Mcg Tablet) 25 mcg PO DAILY@0630 [facility] Last Admin: 09/04/24 06:28 Dose: 25 mcg Losartan Potassium (Losartan Potassium 25 Mg Tablet) 25 mg PO BID [facility]; Protocol Last Admin: 09/04/24 08:20 Dose: 25 mg Magnesium Hydroxide (Milk Of Magnesia 30 Ml Oral.Susp) 30 ml PO DAILY PRN PRN Reason: Constipation Multivitamins/Vitamin C (Multivitamin Tablet) 1 tab PO DAILY [facility] Last Admin: 09/04/24 08:21 Dose: 1 tab Nicotine Polacrilex (Nicotine Polacrilex 2 Mg Gum) 4 mg BUCCAL Q2H PRN PRN Reason: Nicotine Cravings Potassium Chloride (Potassium Chloride Er 20 Meq Tab.Er.Prt) 20 meq PO DAILY [facility] Last Admin: 09/04/24 08:20 Dose: 20 meq Quetiapine Fumarate (Quetiapine Fumarate 100 Mg Tablet) 100 mg PO BEDTIME [facility] Last Admin: 09/03/24 20:30 Dose: 100 mg Risperidone (Risperidone 1 Mg Tablet) 1 mg PO BID [facility] Last Admin: 09/04/24 08:20 Dose: 1 mg Thiamine HCl (Thiamine Hcl 100 Mg Tablet) 100 mg PO DAILY [facility] Last Admin: 09/04/24 08:21 Dose: 100 mg Trazodone HCl (Trazodone Hcl 50 Mg Tablet) 50 mg PO BEDTIME MRX1 PRN PRN Reason: Insomnia Last Admin: 09/03/24 23:49 Dose: 50 mg Allergies Allergies Allergy/AdvReac Type Severity Reaction Status Date / Time No Known Allergies Allergy Verified 08/09/24 23:21 Assessment & Plan Assessment & Plan (1) Dementia associated with alcoholism with behavioral disturbance: Status: Acute Code(s): F10.27 - Alcohol dependence with alcohol-induced persisting dementia (2) 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 Walsh is a 73 year-old woman who was brought on a sect 12a to [facility] due to pt shouting on the streets and unsafe behaviors (no description of these behaviors). Pt was medically admitted for HTN and hypokalemia. She has been noted not to be oriented to situation, place thinking she was in he hospital for physical exam. She does have some degree of paranoid ideas. She also noted to have severe anterograde amnesia with other cognitive functions like language more intact which most related pattern to alcohol related dementia, although mixed etiology can't be ruled out. PLAN 1. admit to S1, sect 12b, 5 minutes checks 2. invoked HCP- pt does not have capacity to make medical decisions 3. start risperidone for paranoia s/s to dementia, will start aricept as well. 4. order MRI 5. aftercare planning. 08/22- continue tx. 08/23 continue tx. 08/24 increase aricept 10mg po qhs. 08/25 continue tx. 08/26 continue tx. 08/27/ CTP 08/29 continue tx. 08/30 continue tx. 08/31 continue tx. 09/01 continue tx. 09/02 continue tx. 09/03: stable. continue current mgmt. DC thursday 09/06. 09/04: stable. continue current mgmt. Reason for continued inpatient stay Substantial Risk for: inability to function and rapid decompensation Time Spent With Patient Time: Total time managing care of this patient today ____ minutes.
[2024-09-04 20:00] VITALS: BP 132/63; PULSE 82; RESP 18; TEMP 36; O2SAT 97
[2024-09-04] MEDS: traZODone HCL 50 MG TABLET PO (20:43)
[2024-09-04] MEDS: Donepezil HCl 10 MG TABLET PO (20:43)
[2024-09-04] MEDS: QUEtiapine Fumarate 100 MG TABLET PO (20:43)
[2024-09-04] MEDS: hydrOXYzine HCL 25 MG TABLET PO (20:43)
[2024-09-05] MEDS: Levothyroxine Sodium 25 MCG TABLET PO (06:19)
[2024-09-05] MEDS: Acetaminophen 325 MG TABLET 650 MG PO (06:25)
[2024-09-05 08:00] VITALS: BP 148/70; PULSE 73; RESP 18; TEMP 36.6; O2SAT 99
[2024-09-05] MEDS: Losartan Potassium 25 MG TABLET PO ×2 (08:15→20:44)
[2024-09-05] MEDS: risperiDONE 1 MG TABLET PO ×2 (08:15→20:44)
[2024-09-05] MEDS: Thiamine HCL 100 MG TABLET PO (08:15)
[2024-09-05] MEDS: Potassium Chloride ER 20 MEQ TAB.ER.PRT PO (08:15)
[2024-09-05] MEDS: Multivitamin TABLET 1 TAB PO (08:15)
[2024-09-05] MEDS: dilTIAZem HCL CD 180 MG CAP.ER.24H PO (08:15)
--- NOTE | 2024-09-05 16:42 | HO.PSYCHPN ---
Subjective Subjective Date of Service: 09/05/24 Reason For Visit: Depression, unspecified Interim History: pleasant, cooperative, no complaints or requests. awaiting imminent discharge. per staff, no change, no notable events or behaviors. Mental Status Exam Mental Status Exam Narrative: Appearance: wearing casual clothing, good hygiene, in NAD Behavior: cooperative Psychomotor: no agitation or retardation noted Speech: clear, verbose, not pressured, spontaneous TP: tangential, at times derailed. confabulation TC: hoping to go on vacation soon Mood: good Affect: congruent, smiling SI: denies HI: denies VH/AH: none Delusions: there is some paranoid ideas Insight/judgment: impaired x 2. Memory/cog: alert,not oriented to place, month, day, date, severe anterograde amnesia. No signsnificant language impairment noted but pending more formal assessment. Diagnostics Vital Signs (24Hr): Vital Signs - 24 hr 09/04/24 20:00 09/05/24 08:00 Temperature 96.8 F 97.9 F Pulse Rate 82 73 Respiratory Rate 18 18 Blood Pressure 132/63 148/70 H Pulse Oximetry 97 99 Oxygen Delivery Method Room Air Room Air BMI result Body Mass Index 23.6 Labs 08/10/24 16:23 Imaging Radiology Impressions: ITS Impressions Brain MRI 08/10/24 18:37 IMPRESSION: Mild to moderate chronic white matter microangiopathy, more so in the sarah. Generalized brain parenchymal volume loss which is more significant in the mesial temporal lobes. No acute process. Baseline volumetric measurements support a diagnosis of primary Alzheimer's dementia. Electronically signed by: Yohannes Jean-Baptiste MD 08/12/2024 09:07 AM EDT Medications Medications Current Medications Acetaminophen (Acetaminophen 325 Mg Tablet) 650 mg PO Q6H PRN PRN Reason: Headache/Pain Mild Scale (1-3) Last Admin: 09/05/24 06:25 Dose: 650 mg Al Hydroxide/Mg Hydroxide (Magnesium Hydrox/Alum Hydrox 30 Ml Oral.Susp) 30 ml PO Q6H PRN PRN Reason: Heartburn/Nausea Diltiazem HCl (Diltiazem Hcl Cd 180 Mg Cap.Er.24h) 180 mg PO DAILY CACHORRO; Protocol Last Admin: 09/05/24 08:15 Dose: 180 mg Donepezil HCl (Donepezil Hcl 10 Mg Tablet) 10 mg PO BEDTIME [facility] Last Admin: 09/04/24 20:43 Dose: 10 mg Hydroxyzine HCl (Hydroxyzine Hcl 25 Mg Tablet) 25 mg PO Q6H PRN PRN Reason: Anxiety Last Admin: 09/04/24 20:43 Dose: 25 mg Levothyroxine Sodium (Levothyroxine Sodium 25 Mcg Tablet) 25 mcg PO DAILY@0630 [facility] Last Admin: 09/05/24 06:19 Dose: 25 mcg Losartan Potassium (Losartan Potassium 25 Mg Tablet) 25 mg PO BID [facility]; Protocol Last Admin: 09/05/24 08:15 Dose: 25 mg Magnesium Hydroxide (Milk Of Magnesia 30 Ml Oral.Susp) 30 ml PO DAILY PRN PRN Reason: Constipation Multivitamins/Vitamin C (Multivitamin Tablet) 1 tab PO DAILY [facility] Last Admin: 09/05/24 08:15 Dose: 1 tab Nicotine Polacrilex (Nicotine Polacrilex 2 Mg Gum) 4 mg BUCCAL Q2H PRN PRN Reason: Nicotine Cravings Potassium Chloride (Potassium Chloride Er 20 Meq Tab.Er.Prt) 20 meq PO DAILY [facility] Last Admin: 09/05/24 08:15 Dose: 20 meq Quetiapine Fumarate (Quetiapine Fumarate 100 Mg Tablet) 100 mg PO BEDTIME [facility] Last Admin: 09/04/24 20:43 Dose: 100 mg Risperidone (Risperidone 1 Mg Tablet) 1 mg PO BID [facility] Last Admin: 09/05/24 08:15 Dose: 1 mg Thiamine HCl (Thiamine Hcl 100 Mg Tablet) 100 mg PO DAILY [facility] Last Admin: 09/05/24 08:15 Dose: 100 mg Trazodone HCl (Trazodone Hcl 50 Mg Tablet) 50 mg PO BEDTIME MRX1 PRN PRN Reason: Insomnia Last Admin: 09/04/24 20:43 Dose: 50 mg Allergies Allergies Allergy/AdvReac Type Severity Reaction Status Date / Time No Known Allergies Allergy Verified 08/09/24 23:21 Assessment & Plan Assessment & Plan (1) Dementia associated with alcoholism with behavioral disturbance: Status: Acute Code(s): F10.27 - Alcohol dependence with alcohol-induced persisting dementia (2) 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 Walsh is a 73 year-old woman who was brought on a sect 12a to [facility] due to pt shouting on the streets and unsafe behaviors (no description of these behaviors). Pt was medically admitted for HTN and hypokalemia. She has been noted not to be oriented to situation, place thinking she was in he hospital for physical exam. She does have some degree of paranoid ideas. She also noted to have severe anterograde amnesia with other cognitive functions like language more intact which most related pattern to alcohol related dementia, although mixed etiology can't be ruled out. PLAN 1. admit to S1, sect 12b, 5 minutes checks 2. invoked HCP- pt does not have capacity to make medical decisions 3. start risperidone for paranoia s/s to dementia, will start aricept as well. 4. order MRI 5. aftercare planning. 08/22- continue tx. 08/23 continue tx. 08/24 increase aricept 10mg po qhs. 08/25 continue tx. 08/26 continue tx. 08/27/ CTP 08/29 continue tx. 08/30 continue tx. 08/31 continue tx. 09/01 continue tx. 09/02 continue tx. 09/03: stable. continue current mgmt. DC thursday 09/06. 09/04: stable. continue current mgmt. 09/05: stable. discharge tomorrow. Reason for continued inpatient stay Substantial Risk for: inability to function Time Spent With Patient Time: Total time managing care of this patient today ____ minutes.
[2024-09-05 20:00] VITALS: BP 143/67; PULSE 83; RESP 18; TEMP 36.1; O2SAT 97
[2024-09-05] MEDS: Donepezil HCl 10 MG TABLET PO (20:44)
[2024-09-05] MEDS: traZODone HCL 50 MG TABLET PO (20:44)
[2024-09-05] MEDS: QUEtiapine Fumarate 100 MG TABLET PO (20:44)
[2024-09-06] MEDS: traZODone HCL 50 MG TABLET PO (00:10)
[2024-09-06] MEDS: hydrOXYzine HCL 25 MG TABLET PO (00:10)
[2024-09-06] MEDS: Levothyroxine Sodium 25 MCG TABLET PO (06:19)
[2024-09-06 08:00] VITALS: BP 153/71; PULSE 76; RESP 16; TEMP 36.9; O2SAT 98
[2024-09-06] MEDS: dilTIAZem HCL CD 180 MG CAP.ER.24H PO (08:14)
[2024-09-06] MEDS: Losartan Potassium 25 MG TABLET PO (08:14)
[2024-09-06] MEDS: Thiamine HCL 100 MG TABLET PO (08:15)
[2024-09-06] MEDS: Multivitamin TABLET 1 TAB PO (08:15)
[2024-09-06] MEDS: Potassium Chloride ER 20 MEQ TAB.ER.PRT PO (08:15)
[2024-09-06] MEDS: risperiDONE 1 MG TABLET PO (08:15)
--- NOTE | 2024-09-06 08:26 | PM.PSYDC ---
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: Status: Acute DS: Medications Discharge Medications Home Medications: Previous Rx's ?Medication ?Instructions ?Recorded diltiazem HCl 180 mg 180 mg PO DAILY #30 caps 09/02/24 capsule,extended release 24 hr (Cardizem CD) donepezil 10 mg tablet 10 mg PO BEDTIME #30 tabs 09/02/24 levothyroxine 25 mcg tablet 25 mcg PO DAILY@0630 #30 tabs 09/02/24 losartan 25 mg tablet 25 mg PO BID #60 tabs 09/02/24 multivitamin (Daily-Clarissa tablet) 1 tab PO DAILY #30 tabs 09/02/24 quetiapine 100 mg tablet 100 mg PO BEDTIME #30 tabs 09/02/24 risperidone 1 mg tablet 1 mg PO BID #60 tabs 09/02/24 thiamine mononitrate (vit B1) 100 100 mg PO DAILY #30 tabs 09/02/24 mg tablet trazodone 50 mg tablet 50 mg PO BEDTIME PRN Insomnia #30 09/02/24 tabs Mental Status Exam Mental Status Exam Narrative: Appearance: wearing casual clothing, good hygiene, in NAD Behavior: cooperative Psychomotor: no agitation or retardation noted Speech: clear, verbose, not pressured, spontaneous TP: tangential, at times derailed. confabulation TC: hoping to go on vacation soon Mood: good Affect: congruent, smiling SI: denies HI: denies VH/AH: none Delusions: there is some paranoid ideas Insight/judgment: impaired x 2. Memory/cog: alert,not oriented to place, month, day, date,nor situation, severe anterograde amnesia. MOCA 05/22, ACL 4.2 Data Imaging Diagnostic Imaging Impressions Brain MRI 08/10/24 18:37 IMPRESSION: Mild to moderate chronic white matter microangiopathy, more so in the sarah. Generalized brain parenchymal volume loss which is more significant in the mesial temporal lobes. No acute process. Baseline volumetric measurements support a diagnosis of primary Alzheimer's dementia. Electronically signed by: Yohannes Jean-Baptiste MD 08/12/2024 09:07 AM EDT RP DS: Summary Hospital Course Hospital Course: Mrs. Walsh is a 73 year-old woman who was brought to [facility] on a sect 12a after pt found shouting in the streets and showing unsafe behaviors (no description provided from records as to what these behaviors were). In the ED, pt noted not to be oriented to place or situation reporting she thought she was there for a physical exam for a job. She was not combative nor agitated, nor required chemical or physical restraints. She was also noted not to be oriented to month or day or date. She was medically admitted for HTN and hypokalemia. In the ED, utox was negative, BAL also neg. On the unit, pt presents as pleasant. She does not know why she is here, thinks she may be here because they place she worked at, [facility] [employer] [employer] [facility] [facility] [employer], sent her here. She does not know the month- thinks it may be March or February. She does not know the place. She reports there are many people jealous of her, suspects at times maybe those people sent her here. She reports daughter wants her inherence and her female neighbors are jealous about her being an independent and happy woman. She denies SI/HI. She reports she likes it here but hopes to leave when she wants. Collateral information was gathered from son, Marcelino. He reports mother has long hx of alcohol use which affected her relationship with her children. He reports in May she called him asking to go and visit him. When she got there, son reports she was confused as to what was going on, where she was or where he was despite him telling her he had to go to work. She demanded to return home, one day did tell the son that police was watching him through the computer. When she went to the airport he was called by [place] stating that pt was looking for her car, which was not there. Son reports that he wasn't sure of her confusion was because she had relapsed on alcohol and was intoxicated or something else was going on. Past Psychiatric History: Inpt: none OP: none Past trial: pt was on seroquel, unclear who prescribes this medication. Medical Evaluation Reviewed: Yes cbc unremarkable. CMP- hypokalemia, LFTs wnl, Alkaline Phos elevated 155, BUN 7, Cr. 0.6, creatinine clearance 97.9. Lipid panel with elevated cholesterol 236, LDL 133 TSH 1.77 HOSPITAL COURSE On the unit, pt was admitted on a CV signed by invoked HCP. Pt not oriented to situation thinking she had come here to complete medical forms to return to work. She was noted not to retain new information and in return significant confabulation was noted. MOCA was completed which he scored 6/30 with severe impairments in visuospatial, executive function, recall, naming, repetition, language fluency and orientation. ACL 4.2. MRI with neuroquant that showed Mild to moderate chronic white matter microangiopathy, more so in the sarah. Generalized brain parenchymal volume loss which is more significant in the mesial temporal lobes. No acute process. Baseline volumetric measurements support a diagnosis of primary Alzheimer's dementia. She also presented somewhat labile. After gathering information from family, it is possible that she has underlying mood disorder mostly untreated throughout her life masked by alcohol use. She also presented with paranoid ideas thinking others were trying to steal from her. After discussing risks, benefits and alternative treatment options, pt was started on risperidone for paranoia, aricept for AD. Her affect gradually presented as calmer, less suspicious. She enjoyed socializing with peers and going to all assigned groups. She did not show any signs of aggression or disruptive behaviors. She was sleeping and eating well. She was taking medications as prescribed. VS was stable. Status at Discharge Cognitive/behavioral status at discharge: Pt brighter, non labile. No SI/HI. No overt psychosis or delusions. Sleeping and eating well. No aggression towards self or others. Time Spent with Patient Time attestation: Total time managing care of this patient today _35___ minutes. Time spent: Greater than 30 minutes Discharge Plan Discharge Anticipated Discharge Date/Time: 09/06/24 08:23 Patient Disposition: Home, Self-Care Discharge Diagnosis: Major Neurocognitive Disorder AD Mood Disorder Referrals: Dr Macias PCP [Other[facility] - 09/06/24 10:30 am (Transfer to [facility] on Thursday09/06/14 at 10:30am. ) Discharge Medications: New multivitamin [Daily-Clarissa] Tablet 1 tab PO DAILY Qty: 30 0RF trazodone 50 mg Tablet 50 mg PO BEDTIME PRN (Reason: Insomnia) Qty: 30 0RF diltiazem HCl [Cardizem CD] 180 mg Capsule,Extended Release 24hr 180 mg PO DAILY Qty: 30 0RF Protocol: Hold for SBP/HR < HOLD for SBP < : 90 HOLD for HR < : 60 donepezil 10 mg Tablet 10 mg PO BEDTIME Qty: 30 0RF quetiapine 100 mg Tablet 100 mg PO BEDTIME Qty: 30 0RF levothyroxine 25 mcg Tablet 25 mcg PO DAILY@0630 Qty: 30 0RF losartan 25 mg Tablet 25 mg PO BID Qty: 60 0RF Protocol: Hold for SBP< HOLD for SBP < : 90 risperidone 1 mg Tablet 1 mg PO BID Qty: 60 0RF thiamine mononitrate (vit B1) 100 mg Tablet 100 mg PO DAILY Qty: 30 0RF Discontinued levothyroxine 25 mcg Tablet 25 mcg PO DAILY diltiazem HCl 180 mg Capsule,Extended Release 24hr 180 mg PO DAILY losartan [Cozaar] 25 mg Tablet 25 mg PO BID quetiapine 25 mg Tablet 25 mg PO DAILY quetiapine 100 mg Tablet 100 mg PO BEDTIME potassium chloride 20 mEq Tablet,Er Particles/Crystals 20 meq PO DAILY thiamine HCl (vitamin B1) 100 mg Tablet 100 mg PO DAILY multivitamin Tablet 1 tab PO DAILY Discharge Orders: Discharge Order (Routine); Ordered 09/06/24 Ordered By: Guadalupe Spicer Diet: Regular diet Activity on Discharge: As tolerated Stand Alone Forms: Patient Portal Discharge page Print Language: Yoruba Care Plan Goals: 1. Maintain mood 2. No SI/HI 3. No aggression towards self or others. Health Concerns: Follow up with PCP for routine care Plan of Treatment: 1. Take medications as prescribed 2. Go to nearest ED or call 911 in event of emergency Assessment: Pt with brighter, non labile mood. No SI/HI. No delusions or psychosis. Confabulation noted, secondary to dementia. Sleeping and eating well.
== END 2024-09-06 14:15 | disposition home or self-care (01) | DRG 897 ==
PROVIDERS: Clinical Nurse Specialist Psychiatric/Mental Health, Adult; Social Worker; Admitting Provider Psychiatry & Neurology Psychiatry; Visit Provider Psychiatry & Neurology Psychiatry
DX: F10.27 Alcohol dependence with alcohol-induced persisting dementia (principal); F02.811 Dementia in other diseases classified elsewhere, unspecified severity, with agitation; G30.9 Alzheimer's disease, unspecified; E03.9 Hypothyroidism, unspecified; I10 Essential (primary) hypertension; E87.6 Hypokalemia; K70.30 Alcoholic cirrhosis of liver without ascites; Z87.891 Personal history of nicotine dependence; Z79.899 Other long term (current) drug therapy
CPT/HCPCS: 36415; 70551; 76377; 80053; 80061; 82607; 82746; 83036; 83735; 84439; 84443

== ENCOUNTER → 2024-08-09 22:56 | Outpatient (BNV) | payer MEDICARE, SELFPAY | PROVIDERS: Admitting Provider Psychiatry & Neurology Psychiatry; Visit Provider Psychiatry & Neurology Psychiatry | DX: F10.27 Alcohol dependence with alcohol-induced persisting dementia (principal) | CPT/HCPCS: 99232 ==

== ENCOUNTER → 2024-08-09 22:56 | Outpatient (BNV) | payer MEDICARE, SELFPAY | PROVIDERS: Admitting Provider Psychiatry & Neurology Psychiatry; Visit Provider Student in an Organized Health Care Education/Training Program | DX: Z02.2 Encounter for examination for admission to residential institution (principal) | CPT/HCPCS: 99429 ==

== ENCOUNTER → 2024-08-09 22:56 | Outpatient (BNV) | payer MEDICARE, SELFPAY | PROVIDERS: Admitting Provider Psychiatry & Neurology Psychiatry; Visit Provider Social Worker | DX: F10.27 Alcohol dependence with alcohol-induced persisting dementia (principal); G30.9 Alzheimer's disease, unspecified; F02.80 Dementia in other diseases classified elsewhere, unspecified severity, without behavioral disturbance, psychotic disturbance, mood disturbance, and anxiety | CPT/HCPCS: 90792; 99231; 99232; 99239 ==